=== PATIENT | female | born 1950 | race Caucasian/White ===

== ENCOUNTER 2022-04-17 17:01 | Inpatient (IN) | payer MEDICARE, SELFPAY ==
[2022-04-17] VITALS (24 sets, daily range): BP systolic 130–154; BP diastolic 80–94; PULSE 58–78; RESP 18–24; TEMP 36.5–36.8; O2SAT 92–100; BMI 31.0; BMI 33.0
--- NOTE | 2022-04-17 18:09 | CRLHL7_ITS ---
For Patients: As a result of the Century Cures Act, medical imaging exams and procedure reports are released immediately into your electronic medical record. You may view this report before your referring provider. If you have questions, please contact your health care provider. INDICATION: Abdominal pain, small-bowel obstruction suspected. TECHNIQUE: CT abdomen and pelvis acquired with 93 mL Isovue 370 contrast. COMPARISON: None available. FINDINGS: Lower chest: Scattered subsegmental atelectasis. No focal consolidation. Liver: Left lobe of the liver is either severely atrophic or surgically absent. Too small to characterize hypodense lesion in segment 6, likely benign in the absence of a known malignancy. Gallbladder and bile ducts: Gallbladder is surgically absent. Prominence of the biliary ducts, likely secondary to postcholecystectomy state. Pancreas: Fatty atrophy. Spleen: Unremarkable. Adrenal glands: Unremarkable. Kidneys: Kidneys enhance symmetrically, without hydronephrosis. Too small to characterize bilateral renal lesions. Retroperitoneum: No lymphadenopathy. Bowel and mesentery: Scattered colonic diverticulosis, without evidence of acute diverticulitis. Multiple dilated fluid-filled loops of small bowel consistent with small bowel obstruction. The transition point is in the right lower quadrant in the region of the distal ileum (series 2, image 64). There is mild volume ascites and mesenteric edema. Laparoscopic gastric band is in place, and is malpositioned. The phi angle is approximately 90 degrees (normal range 4-58 degrees). Bladder: Unremarkable for degree of distension. Reproductive organs: Posthysterectomy. Pelvic lymph nodes: No lymphadenopathy. Vessels: Scattered atherosclerotic calcifications. Abdominal wall: Lap band port is present in the ventral abdominal wall. Bones: Multilevel degenerative changes of the spine. Bones are osteopenic. IMPRESSION: 1. Multiple dilated fluid-filled loops of small bowel consistent with small bowel obstruction, with transition point in the right lower quadrant of the abdomen. Mild volume ascites and mesenteric edema is present. 2. Laparoscopic gastric band is in place, malpositioned. Phi angle is approximately 90 degrees (normal range 40-58 degrees). 3. Left lobe of the liver is either severely atrophic or surgically absent. Please note that all CT scans at this facility use dose modulation, iterative reconstruction, and/or weight-based dosing when appropriate to reduce radiation dose to as low as reasonably achievable. Dictated by Daniela Wilson MD @ 04/17/2022 8:25:53 PM (Electronically Signed)
--- NOTE | 2022-04-17 18:13 | ED_ITS ---
HPI - General Adult General Chief complaint: Abdominal Pain Stated complaint: stomach pain Time Seen by Provider: 04/17/22 18:00 Source: patient and family Mode of arrival: ambulatory History of Present Illness HPI narrative: 72-year-old female with notable prior history of cholecystectomy and hysterectomy as well as lap band procedure presents for abdominal pain that started abruptly at noon today. No nausea no vomiting. She thought that she might need to have a bowel movement so she tried taking some prune juice which has certainly made things her more. Did not try taking any pain medicine. No prior history of similar symptoms. She does feel like the abdomen is a little distended. She has not passed gas today. No prior history of small-bowel obstruction. She does not drink alcohol, no history pancreatitis. No recent b owel surgeries. She does have a lap band, no recent adjustments. Lap band is also not new, placed 11 years ago. She has had a colonoscopy and told that her ?bowels working? in the past. She wonders if this is a contributing factor. No history of polyps. Of note she is anticoagulated for factor 5 Leiden. Coumadin has been therapeutic when last checked but is due for a check again tomorrow. She has not noted any blood in her stools or any signs of spontaneous bleeding. She is in significant pain. Pain is constant, not crampy. It is located in the mid abdomen, does not radiate. Past medical history is notable for obesity, history of AFib but has had an ablation and has remained in sinus rhythm since. She also has a history of coagulopathy and prior DVT, hence the Coumadin. Only home medicine is Coumadin. No recent surgeries but has had a hysterectomy and a cholecystectomy as well as the lap band placement so multiple prior abdominal surgeries. Socially no pertinent alcohol or travel. No illicit drug use. ROS is notable for the abdominal symptoms as described above. Otherwise denies times 15 systems. Related Data Home Medications Medication Instructions Recorded Confirmed psyllium seed (sugar) oral powder 1 tbsp PO QDAY 04/17/22 04/17/22 (Metamucil (sugar) oral powder) warfarin 7.5 mg tablet 7.5 mg PO 04/17/22 04/17/22 Allergies Allergy/AdvReac Type Severity Reaction Status Date / Time No Known Drug Allergies Allergy Verified 04/17/22 19:20 PFSH PFSH Social History Smoking Status: Former smoker How often do you have a drink containing alcohol: 2-4 times a month How many standard drinks containing alcohol do you have on a typical day: 1 or 2 How often do you have six or more drinks on one occasion: Never AUDIT-C Alcohol total score: 2 Non-prescribed substance use: denies use Exam Const: Vital Signs, click to edit/add: Vital Signs - 24 hr 04/17/22 17:44 04/17/22 18:31 04/17/22 18:33 Temperature 98.3 F Pulse Rate 58 L 63 Pulse Rate [Right Pulse Oximeter] 78 Respiratory Rate 18 Blood Pressure 154/94 H Blood Pressure [Ri ght Upper Arm] 154/94 H Pulse Oximetry 95 97 98 Oxygen Delivery Me thod Room Air 04/17/22 18:45 04/17/22 19:00 04/17/22 19:02 Temperature Pulse Rate 66 62 63 Pulse Rate [Right Pulse Oximeter] Respiratory Rate Blood Pressure 131/86 Blood Pressure [Ri ght Upper Arm] Pulse Oximetry 94 97 98 Oxygen Delivery Me thod 04/17/22 19:03 04/17/22 20:03 04/17/22 20:15 Temperature Pulse Rate 60 66 67 Pulse Rate [Right Pulse Oximeter] Respiratory Rate Blood Pressure 136/81 Blood Pressure [Ri ght Upper Arm] Pulse Oximetry 98 93 92 Oxygen Delivery Me thod 04/17/22 20:30 04/17/22 20:32 04/17/22 20:45 Temperature Pulse Rate 65 63 68 Pulse Rate [Right Pulse Oximeter] Respiratory Rate Blood Pressure 131/87 Blood Pressure [Ri ght Upper Arm] Pulse Oximetry 98 97 96 Oxygen Delivery Me thod Documenting provider has reviewed patient's vital signs: yes Common normals: no apparent distress General appearance: cooperative Other: Appears to be in moderate pain, good historian answers questions appropriately HENMT: Common normals: normocephalic Head and scalp: normocephalic Mouth: oral and palatal mucosa normal Throat: posterior oropharynx normal Eye: Common normals: conjunctivae normal Conjunctiva: conjunctiva(e) normal Neck & C-Spine: Common normals: full ROM and no lymphadenopathy Resp: Common normals: normal respiratory effort, no use of accessory muscles and clear to auscultation bilaterally Effort & inspection: able to speak in complete sentences Auscultation: clear to auscultation bilaterally Cardio: Common normals: regular rate, regular rhythm, S1 normal heart sound, no murmurs and peripheral pulses 2+ throughout Rate: regular rate Rhythm: regular rhythm Heart sounds: S1 normal Peripheral pulses: pulses 2+ throughout GI: Other: Abdomen appears distended. Bowel sounds high-pitched but noted in all 4 quadrants. No obvious mass. Mildly diffusely tender, does not localize. Palpable central firmness consistent with inflations site of lap band. No other obvious masses. Liver is not enlarged but difficult to palpate due to distended bowel. Extremity: Other: 2+ edema to left lower extremity which she states is chronic from her DVT. Does wear compression stocking. Right side has 1+ Neuro: Speech: speech normal Motor exam: no tremor noted and no movement abnormalities noted Psych: Common normals: mental status grossly normal and thought process normal Thought process: normal thought process Insight: insight good Judgement: judgment good Skin: Common normals: no rashes or lesions noted General skin exam: no rashes or lesions noted Course Vital Signs Vital signs: Initial Vital Signs Temperature 98.3 F 04/17/22 17:44 Temperature Source Temporal Artery Scan 04/17/22 17:44 Pulse Rate 78 04/17/22 17:44 Respiratory Rate 18 04/17/22 17:44 Blood Pressure 154/94 H 04/17/22 17:44 Blood Pressure Mean 114 04/17/22 17:44 Blood Pressure Position Sitting 04/17/22 17:44 Pulse Oximetry 95 04/17/22 17:44 Oxygen Delivery Method 04/17/22 17:44 Vital Signs Temperature 98.3 F 04/17/22 17:44 Pulse Rate 78 04/17/22 17:44 Respiratory Rate 18 04/17/22 17:44 Blood Pressure 154/94 H 04/17/22 17:44 Pulse Oximetry 95 04/17/22 17:44 Oxygen Delivery Method 04/17/22 17:44 Temperature 98.3 F 04/17/22 17:44 Pulse Rate 68 04/17/22 20:45 Respiratory Rate 18 04/17/22 17:44 Blood Pressure 131/87 04/17/22 20:32 Pulse Oximetry 96 04/17/22 20:45 Oxygen Delivery Method 04/17/22 17:44 Medical Decision Making MDM Narrative Medical decision making narrative: Suspect small-bowel obstruction. Differential diagnosis also including volvulus, hernia, gastritis, pancreatitis, colitis. Laboratory studies, Dilaudid and Zofran IV, CT scan of the abdomen and pelvis. Counseled patient on differential diagnosis. Will start LR for fluids as well. Will likely need admission. Labs reassuring, no signs of pancreatitis or infection. CT as expected is consistent with small-bowel obstruction. Per Radiology Team, the transition point is in the right lower quadrant. They also have some incidental findings such as an atrophic versus surgically absent left lobe of the liver and interestingly a malpositioned lap band which does not seem to be causing patient any particular problems when we discuss this finding. Her pain did initially improve on the Dilaudid is starting to return, will dose an additional dose of Dilaudid. She is not having any vomiting, I will not place an NG tube. I recommend pain control, bowel rest and IV fluids and hospital admission. Will contact the hospitalist for admission. COVID swab is pending. Update 9:[address] Correa accepted admission., Dilaudid ordered p.r.n. in the interim. Admission discussed with patient as well as nonacute findings on CT. Lab Data Lab results reviewed: Yes I reviewed the patient's lab results Labs: Lab Results 04/17/22 04/17/22 04/17/22 Range/Units 17:55 17:55 17:55 WBC 7.21 (4.50-11.00) K/uL RBC 4.60 (4.00-5.20) m/uL Hgb 13.8 (12.0-16.0) gm/dL Hct 40.4 (33.0-51.0) % MCV 88 (80-100) fL MCH 30 (26-34) pg MCHC 34 (32-36) gm/dL RDW Coeff of Goran 12.2 (11.5-15.5) % Plt Count 219 (140-440) K/uL Neut % (Auto) 64.4 (42.0-72.0) % Lymph % (Auto) 23.4 (20-44) % [place] % (Auto) 10.7 (0.0-11.0) % Eos % (Auto) 1.1 (0.0-7.0) % Baso % (Auto) 0.3 (0.0-3.0) % Neut # (Auto) 4.64 (1.7-7.0) K/uL Lymph # (Auto) 1.69 (0.90-2.90) K/uL [place] # (Auto) 0.80 (0.00-0.90) K/UL Eos # (Auto) 0.08 (0.00-0.50) K/uL Baso # (Auto) 0.02 (0.00-0.30) K/uL Abs Immat Gran (auto) 0.01 (0.00-0.30) K/uL Imm/Tot Granulo (auto) 0.1 % INR (0.91-1.10) Sodium 137 (135-149) mmol/L Potassium 4.0 (3.6-5.1) mmol/L Chloride 106 (96-114) mmol/L Carbon Dioxide 26 (20-32) mmol/L BUN 13 (7-30) mg/dL Creatinine 0.5 (0.5-1.5) mg/dL Estimated Creat Clear 44.41 Estimated GFR 98 ml/min Glucose 95 (60-115) mg/dL Lactate 1.2 (0.5-1.9) mmol/L Calcium 9.0 (8.4-10.6) mg/dL Total Bilirubin 1.0 (0.1-1.5) mg/dL AST 29 (12-35) U/L ALT 20 (4-35) U/L Alkaline Phosphatase 61 (40-150) U/L Troponin I < 0.01 L (0.01-0.04) ng/mL C-Reactive Protein < 0.5 L (0.5-1.0) mg/dL Total Protein 7.1 (6.0-8.3) g/dL Albumin 4.3 (3.3-5.0) g/dL Lipase 86 (23-300) U/L Urine Color (Yellow) Urine Appearance (Clear) Urine pH (5.0-8.5) Ur Specific [place] (1.000-1.030) Urine Protein (Negative) Urine Glucose (UA) (Negative) Urine Ketones (Negative) Urine Blood (Negative) Urine Nitrite (Negative) Urine Bilirubin (Negative) Urine Urobilinogen (0.2-1.0) Ur Leukocyte Esterase (Negative) Urine RBC (0-2) Urine WBC (0-5) Ur Squamous Epith Cells (None-Few) Urine Bacteria (None) 04/17/22 04/17/22 Range/Units 17:55 18:09 WBC (4.50-11.00) K/uL RBC (4.00-5.20) m/uL Hgb (12.0-16.0) gm/dL Hct (33.0-51.0) % MCV (80-100) fL MCH (26-34) pg MCHC (32-36) gm/dL RDW Coeff of Goran (11.5-15.5) % Plt Count (140-440) K/uL Neut % (Auto) (42.0-72.0) % Lymph % (Auto) (20-44) % [place] % (Auto) (0.0-11.0) % Eos % (Auto) (0.0-7.0) % Baso % (Auto) (0.0-3.0) % Neut # (Auto) (1.7-7.0) K/uL Lymph # (Auto) (0.90-2.90) K/uL [place] # (Auto) (0.00-0.90) K/UL Eos # (Auto) (0.00-0.50) K/uL Baso # (Auto) (0.00-0.30) K/uL Abs Immat Gran (auto) (0.00-0.30) K/uL Imm/Tot Granulo (auto) % INR 2.62 H (0.91-1.10) Sodium (135-149) mmol/L Potassium (3.6-5.1) mmol/L Chloride (96-114) mmol/L Carbon Dioxide (20-32) mmol/L BUN (7-30) mg/dL Creatinine (0.5-1.5) mg/dL Estimated Creat Clear Estimated GFR ml/min Glucose (60-115) mg/dL Lactate (0.5-1.9) mmol/L Calcium (8.4-10.6) mg/dL Total Bilirubin (0.1-1.5) mg/dL AST (12-35) U/L ALT (4-35) U/L Alkaline Phosphatase (40-150) U/L Troponin I (0.01-0.04) ng/mL C-Reactive Protein (0.5-1.0) mg/dL Total Protein (6.0-8.3) g/dL Albumin (3.3-5.0) g/dL Lipase (23-300) U/L Urine Color Yellow (Yellow) Urine Appearance Clear (Clear) Urine pH 6.0 (5.0-8.5) Ur Specific [place] 1.015 (1.000-1.030) Urine Protein Negative (Negative) Urine Glucose (UA) Negative (Negative) Urine Ketones Trace A (Negative) Urine Blood Negative (Negative) Urine Nitrite Negative (Negative) Urine Bilirubin Negative (Negative) Urine Urobilinogen 0.2 (0.2-1.0) Ur Leukocyte Esterase 1+ A (Negative) Urine RBC 0-2 (0-2) Urine WBC 2-5 (0-5) Ur Squamous Epith Cells Few (None-Few) Urine Bacteria None (None) Imaging Data CT scan - abdomen: Attestation: I have reviewed the pertinent imaging results. My impression: Bowel edema and fluid filled loops consistent with small bowel obstruction Radiologist's impression: FINDINGS: Lower chest: Scattered subsegmental atelectasis. No focal consolidation. Liver: Left lobe of the liver is either severely atrophic or surgically absent. Too small to characterize hypodense lesion in segment 6, likely benign in the absence of a known malignancy. Gallbladder and bile ducts: Gallbladder is surgically absent. Prominence of the biliary ducts, likely secondary to postcholecystectomy state. Pancreas: Fatty atrophy. Spleen: Unremarkable. Adrenal glands: Unremarkable. Kidneys: Kidneys enhance symmetrically, without hydronephrosis. Too small to characterize bilateral renal lesions. Retroperitoneum: No lymphadenopathy. Bowel and mesentery: Scattered colonic diverticulosis, without evidence of acute diverticulitis. Multiple dilated fluid-filled loops of small bowel consistent with small bowel obstruction. The transition point is in the right lower quadrant in the region of the distal ileum (series 2, image 64). There is mild volume ascites and mesenteric edema. Laparoscopic gastric band is in place, and is malpositioned. The phi angle is approximately 90 degrees (normal range 4-58 degrees). Discharge Plan Discharge Prescriptions: No Action warfarin 7.5 mg tablet 7.5 mg PO Label Comments: TAKE BY MOUTH 7.5 MG (7.5 MG X 1) DAILY IN THE EVENING OR DIRECTED Metamucil (sugar) Powder 1 tbsp PO QDAY Follow Up/Referrals: Provider,Not a Local [Primary Care Provider] -
[2022-04-17] MEDS: HYDROmorphone 0.5 mg/0.5 ml inj IVP ×5 (18:21→23:50)
[2022-04-17] MEDS: ONDANSETRON 2 MG/ML inj 4 MG IVP (18:21)
[2022-04-17 18:22] LABS: Lactate* 1.2 mmol/L (0.5-1.9)
[2022-04-17 18:23] LABS: Basophils Absolute Auto 0.02 K/uL (0.00-0.30); Basophils Percent Auto 0.3 % (0.0-3.0); Eosinophils Absolute Auto 0.08 K/uL (0.00-0.50); Eosinophils Percent Auto 1.1 % (0.0-7.0); Hematocrit 40.4 % (33.0-51.0); Hemoglobin* 13.8 gm/dL (12.0-16.0); Immature Granulocytes Abs Auto 0.01 K/uL (0.00-0.30); Immature Granulocytes Pct Auto 0.1 %; Lymphocytes Absolute Auto 1.69 K/uL (0.90-2.90); Lymphocytes Percent Auto 23.4 % (20-44); Mean Corpuscular HGB Conc 34 gm/dL (32-36); Mean Corpuscular Hemoglobin 30 pg (26-34); Mean Corpuscular Volume 88 fL (80-100); Monocytes Percent Auto 10.7 % (0.0-11.0); Neutrophils Absolute Auto 4.64 K/uL (1.7-7.0); Neutrophils Percent Auto 64.4 % (42.0-72.0); Platelet Count* 219 K/uL (140-440); RDW Coefficient of Variation % 12.2 % (11.5-15.5); White Blood Count* 7.21 K/uL (4.50-11.00)
[2022-04-17 18:24] LABS: Slide Review Reflex No
[2022-04-17] MEDS: LACTATED RINGERS 1000 ML 1,000 ML 500 ML IV (18:30)
[2022-04-17 18:44] LABS: INR 2.62 (0.91-1.10); Prothrombin Time 29.3 Seconds
[2022-04-17 18:45] LABS: Albumin* 4.3 g/dL (3.3-5.0); Chloride* 106 mmol/L (96-114)
[2022-04-17 18:46] LABS: Sodium* 137 mmol/L (135-149)
[2022-04-17 18:48] LABS: Creatinine* 0.5 mg/dL (0.5-1.5); Est. Creatinine Clearance* 44.41; Estimated Glomerular Filt Rate 98 ml/min
[2022-04-17 18:49] LABS: Alanine Aminotransferase* 20 U/L (4-35); Alkaline Phosphatase* 61 U/L (40-150); Aspartate Amino Transferase* 29 U/L (12-35); Blood Urea Nitrogen* 13 mg/dL (7-30); Carbon Dioxide* 26 mmol/L (20-32); Glucose* 95 mg/dL (60-115); Lipase* 86 U/L (23-300); Total Protein* 7.1 g/dL (6.0-8.3)
[2022-04-17 18:55] LABS: C Reactive Protein* < 0.5 mg/dL (0.5-1.0)
[2022-04-17 19:03] LABS: Troponin I* < 0.01 ng/mL (0.01-0.04)
[2022-04-17 19:52] LABS: Appearance Urine Clear (Clear); Bilirubin Urine Negative (Negative); Blood Urine Negative (Negative); Color Urine Yellow (Yellow); Glucose Urine Negative (Negative); Ketones Urine Trace (Negative); Leukocyte Esterase Urine 1+ (Negative); Nitrite Urine Negative (Negative); Protein Urine Negative (Negative); Specific Gravity Urine 1.015 (1.000-1.030); Urobilinogen Urine 0.2 (0.2-1.0)
[2022-04-17 19:55] LABS: RBC Urine 0-2 (0-2); Squamous Epithelial Cell Urine Few (None-Few)
[2022-04-17 21:27] LABS: SARS PCR* Negative SARS-CoV-2 (Negative)
--- NOTE | 2022-04-17 21:56 | W.PC.EDHO ---
Primary Language: Korean Preferred Language: Orientation Status: [x] Alert & Oriented [] Slight Confusion [] Known Dx Dementia Transfers By: [x] Assist of 1 [] Assist of 2 [] Lift Active Medications Discontinued Medications Generic Name Dose Route Start Last Admin Trade Name Mikyq PRN Reason Stop Dose Admin Hydromorphone HCl 0.5 mg 04/17/22 18:01 04/17/22 18:21 Hydromorphone 0.5 Mg/0.5 Ml Inj IVP 04/17/22 18:02 0.5 mg ONCE ONE Administration Hydromorphone HCl 0.5 mg 04/17/22 18:33 04/17/22 18:35 Hydromorphone 0.5 Mg/0.5 Ml Inj IVP 04/17/22 18:34 0.5 mg ONCE ONE Administration Hydromorphone HCl 0.5 mg 04/17/22 20:41 04/17/22 20:52 Hydromorphone 0.5 Mg/0.5 Ml Inj IVP 04/17/22 20:42 0.5 mg ONCE ONE Administration Lactated Ringer's 1,000 mls @ 500 mls/hr 04/17/22 18:11 04/17/22 21:25 Lactated Ringers 1000 Ml IV 04/17/22 20:10 Infused .Q2H JULITO Infusion Ondansetron HCl 4 mg 04/17/22 18:01 04/17/22 18:21 Ondansetron 2 Mg/Ml Inj IVP 04/17/22 18:02 4 mg ONCE ONE Administration Description of Symptoms ED Triage Present Problem pt here with severe abd pain that came on suddenly Description she thought she needed to have a BM and took prune juice without relief, 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 ED Triage Date of Onset of 04/17/22 Symptoms Female History Patient No Patient No Pain Pain Description [Medial Sharp Abdomen] Pain Description [Medial Pressure,Sharp,Dull, Achy,Cramping Abdomen] Pain Intensity [Medial Abdomen 10 ] Pain Intensity [Medial Abdomen 10 ] Pain Intensity 5 Pain Intensity 8 Pain Intensity 8 Pain Intensity 8 Pain Intensity 10 Pain Intensity 10 Pain Intensity 10 Pain Scale Used [Medial Numeric (1 - 10) Abdomen] Pain Scale Used [Medial Numeric (1 - 10) Abdomen] Pain Scale Used Numeric (1 - 10) Pain Scale Used Numeric (1 - 10) Pain Scale Used Numeric (1 - 10) Pain Scale Used Numeric (1 - 10) Pain Scale Used Numeric (1 - 10) Pain Scale Used Numeric (1 - 10) Oxygen Administration Pulse Oximetry 96 Pulse Oximetry 94 Pulse Oximetry 97 Pulse Oximetry 99 Pulse Oximetry 96 Pulse Oximetry 97 Pulse Oximetry 98 Pulse Oximetry 92 Pulse Oximetry 93 Pulse Oximetry 98 Pulse Oximetry 98 Pulse Oximetry 97 Pulse Oximetry 94 Pulse Oximetry 98 Pulse Oximetry 97 Pulse Oximetry 95 Oxygen Delivery Method Room Air
--- NOTE | 2022-04-17 22:35 | ED.NURSE ---
Report called to M/S RN.
--- NOTE | 2022-04-17 22:56 | P.IMHP_ITS ---
Hospitalist- H&P: HPI History of Present Illness Date Seen: 04/17/22 Chief complaint: stomach pain Narrative: Dayana Hein is a 72 year old female admitted through the emergency department with onset of severe abdominal pain starting at noon today. Patient reports feeling fine up until about noon today when she had onset of a sense of bloating and fullness in her abdomen. She thought she was constipated so she took some laxative. She continued to feel worse and by late afternoon came to the emergency room for evaluation. She did not have a bowel movement or passed gas today. She has been nauseated. Past history of open cholecystectomy, hysterectomy, lap band gastric surgery. No previous history of small-bowel obstruction She is chronically anticoagulated with warfarin for previous history of a postop DVT and factor 5 Leiden mutation, heterozygous. She has a history of atrial fibrillation but has had an ablation. Review of Systems Narrative: She reports that she was generally feeling well until onset of symptoms at noon today. No other recent illness. [facility] Medical History (Updated 04/17/22 @ 23:12 by Jarocho Correa MD) Ascending aorta dilatation Chronic anticoagulation Factor 5 Leiden mutation, heterozygous Family history of cholecystectomy History of atrial fibrillation History of DVT (deep vein thrombosis) History of paroxysmal supraventricular tachycardia History of thyrotoxicosis Surgical History (Updated 04/17/22 @ 23:04 by Jarocho Correa MD) History of abdominal hysterectomy History of abdominoplasty History of arthroplasty of right knee History of arthroscopy of both knees History of tonsillectomy and adenoidectomy Hx of laparoscopic gastric banding Status post catheter ablation of atrial fibrillation Family History (Updated 04/17/22 @ 23:05 by Jarocho Correa MD) Mother Renal cell carcinoma Breast cancer Father Aortic dissection Brother Aortic dissection Social History (Updated 04/17/22 @ 23:07 by Jarocho Correa MD) Narrative: She lives in [place] with her . She has 2 grown daughters and grandchildren. She is a former smoker having smoked to half pack a day for 30 years and quitting about 25 years ago. She drinks alcohol about 2 times a week. 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 Code status is full. Smoking Status: Former smoker How often do you have a drink containing alcohol: 2-4 times a month How many standard drinks containing alcohol do you have on a typical day: 1 or 2 How often do you have six or more drinks on one occasion: Never AUDIT-C Alcohol total score: 2 Non-prescribed substance use: denies use Meds Home Medications and Allergies Home Medications Medication Instructions Recorded Confirmed Type psyllium seed (sugar) oral powder 1 tbsp PO QDAY 04/17/22 04/17/22 History (Metamucil (sugar) oral powder) warfarin 7.5 mg tablet 7.5 mg PO DAILY 04/17/22 04/17/22 History Allergies Allergy/AdvReac Type Severity Reaction Status Date / Time No Known Drug Allergies Allergy Verified 04/17/22 19:20 Exam Narrative: Exam Narrative: She is alert and appears in mild discomfort. She is oriented to her circumstances. She gives her own history. Head is normal. Eyes normal. Sclerae nonicteric. Oropharynx normal. Neck is supple without mass or adenopathy. Respirations are clear to auscultation. Good air exchange all lung [place]. Cardiovascular: S1, S2, regular rate and rhythm. No murmur gallop or rub. Abdomen: Bowel sounds minimal. She has diffuse mild tenderness with voluntary guarding. Mild abdominal distension. External genitalia normal. Extremities without edema. Intact pedal pulses. No rash. She moves all 4 extremities well. Const: Vital Signs, click to edit/add: Vital Signs - 24 hr 04/17/22 17:44 04/17/22 18:31 04/17/22 18:33 Temperature 98.3 F Pulse Rate 58 L 63 Pulse Rate [Right Pulse Oximeter] 78 Respiratory Rate 18 Blood Pressure 154/94 H Blood Pressure [Ri ght Upper Arm] 154/94 H Pulse Oximetry 95 97 98 Oxygen Delivery Me thod Room Air 04/17/22 18:45 04/17/22 19:00 04/17/22 19:02 Temperature Pulse Rate 66 62 63 Pulse Rate [Right Pulse Oximeter] Respiratory Rate Blood Pressure 131/86 Blood Pressure [Ri ght Upper Arm] Pulse Oximetry 94 97 98 Oxygen Delivery Me thod 04/17/22 19:03 04/17/22 20:03 04/17/22 20:15 Temperature Pulse Rate 60 66 67 Pulse Rate [Right Pulse Oximeter] Respiratory Rate Blood Pressure 136/81 Blood Pressure [Ri ght Upper Arm] Pulse Oximetry 98 93 92 Oxygen Delivery Me thod 04/17/22 20:30 04/17/22 20:32 04/17/22 20:45 Temperature Pulse Rate 65 63 68 Pulse Rate [Right Pulse Oximeter] Respiratory Rate Blood Pressure 131/87 Blood Pressure [Ri ght Upper Arm] Pulse Oximetry 98 97 96 Oxygen Delivery Me thod 04/17/22 21:00 04/17/22 21:02 04/17/22 21:15 Temperature Pulse Rate 67 64 64 Pulse Rate [Right Pulse Oximeter] Respiratory Rate Blood Pressure 140/80 H Blood Pressure [Ri ght Upper Arm] Pulse Oximetry 99 97 94 Oxygen Delivery Me thod 04/17/22 21:32 04/17/22 21:33 04/17/22 21:45 Temperature Pulse Rate 65 66 74 Pulse Rate [Right Pulse Oximeter] Respiratory Rate Blood Pressure 142/85 H Blood Pressure [Ri ght Upper Arm] Pulse Oximetry 96 96 100 Oxygen Delivery Me thod 04/17/22 22:00 04/17/22 22:02 04/17/22 22:15 Temperature Pulse Rate 62 63 64 Pulse Rate [Right Pulse Oximeter] Respiratory Rate Blood Pressure 130/87 Blood Pressure [Ri ght Upper Arm] Pulse Oximetry 95 97 95 Oxygen Delivery Me thod 04/17/22 22:30 04/17/22 22:32 Temperature Pulse Rate 60 61 Pulse Rate [Right Pulse Oximeter] Respiratory Rate Blood Pressure 137/89 Blood Pressure [Ri ght Upper Arm] Pulse Oximetry 96 93 Oxygen Delivery Me od Hospitalist - H&P: Result Labs Labs: Short CBC 04/17/22 Range/Units 17:55 WBC 7.21 (4.50-11.00) K/uL Hgb 13.8 (12.0-16.0) gm/dL Hct 40.4 (33.0-51.0) % Plt Count 219 (140-440) K/uL BMP 04/17/22 17:55 Sodium 137 Potassium 4.0 Chloride 106 Carbon Dioxide 26 BUN 13 Creatinine 0.5 Glucose 95 Calcium 9.0 Cardiac Enzymes 04/17/22 Range/Units 17:55 Troponin I < 0.01 L (0.01-0.04) ng/mL Liver Function 04/17/22 Range/Units 17:55 Total Bilirubin 1.0 (0.1-1.5) mg/dL AST 29 (12-35) U/L ALT 20 (4-35) U/L Alkaline Phosphatase 61 (40-150) U/L Albumin 4.3 (3.3-5.0) g/dL Urine 04/17/22 Range/Units 18:09 Urine Color Yellow (Yellow) Urine Appearance Clear (Clear) Urine pH 6.0 (5.0-8.5) Ur Specific [place] 1.015 (1.000-1.030) Urine Protein Negative (Negative) Urine Glucose (UA) Negative (Negative) Imaging CT scan - abdomen: Radiologist's impression: IMPRESSION: 1. Multiple dilated fluid-filled loops of small bowel consistent with small bowel obstruction, with transition point in the right lower quadrant of the abdomen. Mild volume ascites and mesenteric edema is present. 2. Laparoscopic gastric band is in place, malpositioned. Phi angle is approximately 90 degrees (normal range 40-58 degrees). 3. Left lobe of the liver is either severely atrophic or surgically absent. Assessment and Plan Assessment and plan (1) Small bowel obstruction: Problem comment: Place NG tube. Consult surgery. IV fluids. Pain medications. Reverse anticoagulation. Enoxaparin when INR is normalized. Status: Acute (2) Chronic anticoagulation: Problem comment: Reverse anticoagulation now with vitamin K. anticipate conservative management of small bowel obstruction. Bridge with enoxaparin if necessary. Status: Acute Plan Admit to the hospital for management of small bowel obstruction, IV fluids, pain management, NG suctioning. Total time spent is 70 minutes, 40 minutes in coordination of care and discussing with patient, , other providers management of bowel obstruction
[2022-04-17] MEDS: 5 % DEXTROSE IN LAC RINGER'S 1,000 ML 125 ML IV (23:30)
--- NOTE | 2022-04-17 23:41 | CRLHL7_ITS ---
For Patients: As a result of the Cures Act, medical imaging exams and procedure reports are released immediately into your electronic medical record. You may view this report before your referring provider. If you have questions, please contact your health care provider. INDICATION: NG tube placement TECHNIQUE: Chest radiograph 1 view COMPARISON: None FINDINGS: Mediastinum: The mediastinum is normal in appearance. Moderate to severe cardiomegaly is present. NG tube is present with the tip in the gastric body. Lung: Small lung volumes present with moderate pulmonary vascular congestion and bibasilar atelectasis seen. No sign of pleural effusion seen. No pneumothorax is identified. Bone and Soft tissue: Unremarkable for age. IMPRESSION: 1. NG tube is present with the tip in the gastric body. Dictated by Obie Arguelles MD @ 04/18/2022 12:14:21 AM Dictated by: Obie Arguelles MD @ 04/18/2022 00:14:24 (Electronically Signed)
[2022-04-17] MEDS: PHYTONADIONE (VIT K1) 5 MG in 0.9 % SODIUM CHLORIDE 50 ml 50 ML 100 MG IVPB (23:51)
[2022-04-18] VITALS (7 sets, daily range): BP systolic 123–145; BP diastolic 80–95; PULSE 60–80; RESP 20–209; TEMP 36.4–36.9; O2SAT 91–99
[2022-04-18] MEDS: ONDANSETRON 2 MG/ML inj 4 MG IVP ×3 (00:21→10:08)
[2022-04-18] MEDS: HYDROmorphone 0.5 mg/0.5 ml inj IVP ×7 (01:27→16:10)
[2022-04-18] MEDS: BENZOCAINE/MENTHOL 1 EACH LOZENGE MUCOUS MEM ×2 (02:03→05:13)
[2022-04-18 07:01] LABS: Chloride* 106 mmol/L (96-114); Potassium* 4.2 mmol/L (3.6-5.1); Sodium* 136 mmol/L (135-149)
[2022-04-18 07:03] LABS: Creatinine* 0.4 mg/dL (0.5-1.5); Est. Creatinine Clearance* 44.41; Estimated Glomerular Filt Rate 104 ml/min
[2022-04-18 07:04] LABS: Blood Urea Nitrogen* 10 mg/dL (7-30); Calcium* 8.3 mg/dL (8.4-10.6); Carbon Dioxide* 22 mmol/L (20-32); Glucose* 167 mg/dL (60-115)
--- NOTE | 2022-04-18 07:35 | PC.NURSE ---
Shift note: The pt has been C/O of abdominal pain moderate to severe, PRN pain medication given with some improvement . She is also C/O nausea with retching, Zofran given with some relief. The pt had been sleeping between [id number]( didn't ask for pain mediation. NG to right nare; Low intermittent wall suction,@ 60 cm , moderated greenish abdominal substance noted in the suction canister. The pt has been denying chest pain and shot of breath throughout the night.
[2022-04-18 07:44] LABS: Basophils Absolute Auto 0.01 K/uL (0.00-0.30); Basophils Percent Auto 0.1 % (0.0-3.0); Hemoglobin* 13.1 gm/dL (12.0-16.0); Immature Granulocytes Abs Auto 0.02 K/uL (0.00-0.30); Immature Granulocytes Pct Auto 0.2 %; Lymphocytes Percent Auto 5.3 % (20-44); Mean Corpuscular HGB Conc 34 gm/dL (32-36); Mean Corpuscular Hemoglobin 30 pg (26-34); Mean Corpuscular Volume 89 fL (80-100); Neutrophils Percent Auto 89.4 % (42.0-72.0); Platelet Count* 175 K/uL (140-440); RDW Coefficient of Variation % 12.2 % (11.5-15.5); Red Blood Count 4.36 m/uL (4.00-5.20); White Blood Count* 8.16 K/uL (4.50-11.00)
[2022-04-18 07:47] LABS: Slide Review Reflex No
[2022-04-18 07:58] LABS: Prothrombin Time 21.9 Seconds
[2022-04-18] MEDS: 5 % DEXTROSE IN LAC RINGER'S 1,000 ML 125 ML IV ×2 (08:04→17:02)
[2022-04-18] MEDS: SODIUM CHLORIDE 0.9 % (FLUSH) 10 ML SYRINGE 5 ML IVF (08:06)
[2022-04-18 08:07] LABS: Thyroid Stimulating Hormone* 0.483 uIU/mL (0.270-4.20)
[2022-04-18 09:18] LABS: Lactate* 1.6 mmol/L (0.5-1.9)
[2022-04-18 09:28] LABS: C Reactive Protein* < 0.5 mg/dL (0.5-1.0)
--- NOTE | 2022-04-18 10:40 | P.GSCN_ITS ---
History of Present Illness Consult details Date Seen: 04/18/22 Consult date: 04/18/22 Narrative: The patient is a 72-year-old female who yesterday developed severe abdominal pain. This started abruptly around noon. The pain is constant. Nothing makes the pain better worse but sitting up does seem to make her more uncomfortable. She was admitted to the hospital and found to have likely a small-bowel obstruction. An NG tube was placed and approximately 500 mL came out. She has a history of a lap band which was placed sometime in the past. This port was revised at some point as well I believe during and abdominal plasty procedure. She has not had bowel movement in the last day. She states that she generally has to take Metamucil to have bowel movements. She has not had any fevers. She has had nausea but no vomiting on account of the lap band. She has never had a bowel obstruction or anything like this previously. Review of Systems Status of ROS: Reports: 10 or more systems reviewed and unremarkable except as noted in History and below PFSH [facility] Medical History (Updated 04/18/22 @ 12:39 by Jarocho Correa MD) Ascending aorta dilatation Chronic anticoagulation Factor 5 Leiden mutation, heterozygous Family history of cholecystectomy History of atrial fibrillation History of DVT (deep vein thrombosis) History of paroxysmal supraventricular tachycardia History of thyrotoxicosis Surgical History (Updated 04/17/22 @ 23:04 by Jarocho Correa MD) History of abdominal hysterectomy History of abdominoplasty History of arthroplasty of right knee History of arthroscopy of both knees History of tonsillectomy and adenoidectomy Hx of laparoscopic gastric banding Status post catheter ablation of atrial fibrillation Family History (Updated 04/17/22 @ 23:05 by Jarocho Correa MD) Mother Renal cell carcinoma Breast cancer Father Aortic dissection Brother Aortic dissection Social History (Updated 04/17/22 @ 23:07 by Jarocho Correa MD) Narrative: She lives in [place] with her . She has 2 grown daughters and grandchildren. She is a former smoker having smoked to half pack a day for 30 years and quitting about 25 years ago. She drinks alcohol about 2 times a week. 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 Code status is full. Highest level of school completed/degree received: high school graduate Smoking Status: Former smoker Second hand tobacco smoke exposure: No How often do you have a drink containing alcohol: 2-4 times a month Alcohol type: hard liquor How many standard drinks containing alcohol do you have on a typical day: 1 or 2 How often do you have six or more drinks on one occasion: Never AUDIT-C Alcohol total score: 2 Non-prescribed substance use: denies use Caffeine: Yes (2 cups a day) service: No Meds Home Medications and Allergies Home Medications Medication Instructions Recorded Confirmed Type psyllium seed (sugar) oral powder 1 tbsp PO DAILY 04/17/22 04/18/22 History (Metamucil (sugar) oral powder) warfarin 7.5 mg tablet 7.5 mg PO DAILY 04/17/22 04/17/22 History Cheryl 1 ea PO DAILY 04/18/22 04/18/22 History Lactobacillus acidophilus 1 tab PO DAILY 04/18/22 04/18/22 History (Acidophilus chewable tablet) cholecalciferol (vitamin D3) 50 50 mcg PO DAILY 04/18/22 04/18/22 History mcg (2,000 unit) capsule multivitamin (Daily Multi-Vitamin 1 tab PO DAILY 04/18/22 04/18/22 History tablet) omega 6-tiv-jcx-fish oil 1,000 mg 1 cap PO DAILY 04/18/22 04/18/22 History (120 mg-180 mg) capsule (Fish Oil) turmeric 400 mg capsule 400 mg PO DAILY 04/18/22 04/18/22 History vit 1 tab PO DAILY 04/18/22 04/18/22 History [id number] 500 mg-50 mg-25 mg-40 mg tablet (Bioflex) vitamin B complex 1 tab PO DAILY 04/18/22 04/18/22 History Allergies Allergy/AdvReac Type Severity Reaction Status Date / Time No Known Drug Allergies Allergy Verified 04/17/22 19:20 Exam Narrative: Exam Narrative: General appearance: Alert, cooperative, and in no distress Eyes: PERRLA, eye lids clear, and sclera white HENT Head: Normocephalic NG in place with 500 mL of brownish output Pulmonary: Breathing nonlabored on room air Cardiovascular Heart: Regular rate Extremities: warm and well perfused Gastrointestinal Abdominal: Nondistended. Tender to palpation without rebound. Scars consistent with surgical history. Musculoskeletal: Extremities: Upper: Both upper extremities have normal joint range of motion and intact strength. Lower: Both lower extremities have normal joint range of motion and intact strength. Skin: Normal skin color, texture, and turgor. No rashes or lesions. Neurologic: No focal deficits Psychiatric: Alert, oriented, cooperative, normal affect. Const: Vital Signs, click to edit/add: Vital Signs - 24 hr 04/17/22 17:44 04/17/22 18:31 04/17/22 18:33 Temperature 98.3 F Pulse Rate 58 L 63 Pulse Rate [Pulse Oximeter] Pulse Rate [Right Pulse Oximeter] 78 Respiratory Rate 18 Blood Pressure 154/94 H Blood Pressure [Le ft Radial Artery] Blood Pressure [Ri ght Upper Arm] 154/94 H Pulse Oximetry 95 97 98 Oxygen Delivery Me thod Room Air 04/17/22 18:45 04/17/22 19:00 04/17/22 19:02 Temperature Pulse Rate 66 62 63 Pulse Rate [Pulse Oximeter] Pulse Rate [Right Pulse Oximeter] Respiratory Rate Blood Pressure 131/86 Blood Pressure [Le ft Radial Artery] Blood Pressure [Ri ght Upper Arm] Pulse Oximetry 94 97 98 Oxygen Delivery Me thod 04/17/22 19:03 04/17/22 20:03 04/17/22 20:15 Temperature Pulse Rate 60 66 67 Pulse Rate [Pulse Oximeter] Pulse Rate [Right Pulse Oximeter] Respiratory Rate Blood Pressure 136/81 Blood Pressure [Le ft Radial Artery] Blood Pressure [Ri ght Upper Arm] Pulse Oximetry 98 93 92 Oxygen Delivery Me thod 04/17/22 20:30 04/17/22 20:32 04/17/22 20:45 Temperature Pulse Rate 65 63 68 Pulse Rate [Pulse Oximeter] Pulse Rate [Right Pulse Oximeter] Respiratory Rate Blood Pressure 131/87 Blood Pressure [Le ft Radial Artery] Blood Pressure [Ri ght Upper Arm] Pulse Oximetry 98 97 96 Oxygen Delivery Me thod 04/17/22 21:00 04/17/22 21:02 04/17/22 21:15 Temperature Pulse Rate 67 64 64 Pulse Rate [Pulse Oximeter] Pulse Rate [Right Pulse Oximeter] Respiratory Rate Blood Pressure 140/80 H Blood Pressure [Le ft Radial Artery] Blood Pressure [Ri ght Upper Arm] Pulse Oximetry 99 97 94 Oxygen Delivery Me thod 04/17/22 21:32 04/17/22 21:33 04/17/22 21:45 Temperature Pulse Rate 65 66 74 Pulse Rate [Pulse Oximeter] Pulse Rate [Right Pulse Oximeter] Respiratory Rate Blood Pressure 142/85 H Blood Pressure [Le ft Radial Artery] Blood Pressure [Ri ght Upper Arm] Pulse Oximetry 96 96 100 Oxygen Delivery Me thod 04/17/22 22:00 04/17/22 22:02 04/17/22 22:15 Temperature Pulse Rate 62 63 64 Pulse Rate [Pulse Oximeter] Pulse Rate [Right Pulse Oximeter] Respiratory Rate Blood Pressure 130/87 Blood Pressure [Le ft Radial Artery] Blood Pressure [Ri ght Upper Arm] Pulse Oximetry 95 97 95 Oxygen Delivery Me thod 04/17/22 22:30 04/17/22 22:32 04/17/22 23:03 Temperature 97.7 F Pulse Rate 60 61 Pulse Rate [Pulse Oximeter] 62 Pulse Rate [Right Pulse Oximeter] Respiratory Rate 24 Blood Pressure 137/89 Blood Pressure [Le ft Radial Artery] 146/91 H Blood Pressure [Ri ght Upper Arm] Pulse Oximetry 96 93 96 Oxygen Delivery Me thod Room Air 04/17/22 23:03 04/18/22 02:11 04/18/22 02:25 Temperature 97.6 F Pulse Rate Pulse Rate [Pulse Oximeter] 60 Pulse Rate [Right Pulse Oximeter] Respiratory Rate 209 H 20 Blood Pressure Blood Pressure [Le ft Radial Artery] 123/84 Blood Pressure [Ri ght Upper Arm] Pulse Oximetry 96 94 Oxygen Delivery Me thod Room Air Room Air 04/18/22 02:30 04/18/22 05:00 Temperature 98.1 F Pulse Rate Pulse Rate [Pulse Oximeter] Pulse Rate [Right Pulse Oximeter] Respiratory Rate 20 20 Blood Pressure Blood Pressure [Le ft Radial Artery] 143/81 H Blood Pressure [Ri ght Upper Arm] Pulse Oximetry 94 94 Oxygen Delivery Me thod Room Air Room Air Results Labs Labs: Abnormal lab results 04/17/22 04/17/22 04/17/22 Range/Units 17:55 17:55 18:09 Neut % (Auto) (42.0-72.0) % Lymph % (Auto) (20-44) % Neut # (Auto) (1.7-7.0) K/uL Lymph # (Auto) (0.90-2.90) K/uL INR 2.62 H (0.91-1.10) Creatinine (0.5-1.5) mg/dL Glucose (60-115) mg/dL Calcium (8.4-10.6) mg/dL Troponin I < 0.01 L (0.01-0.04) ng/mL C-Reactive Protein < 0.5 L (0.5-1.0) mg/dL Urine Ketones Trace A (Negative) Ur Leukocyte Esterase 1+ A (Negative) 04/18/22 04/18/22 04/18/22 Range/Units 06:16 06:16 07:34 Neut % (Auto) 89.4 H (42.0-72.0) % Lymph % (Auto) 5.3 L (20-44) % Neut # (Auto) 7.30 H (1.7-7.0) K/uL Lymph # (Auto) 0.40 L (0.90-2.90) K/uL INR (0.91-1.10) Creatinine 0.4 L (0.5-1.5) mg/dL Glucose 167 H (60-115) mg/dL Calcium 8.3 L (8.4-10.6) mg/dL Troponin I (0.01-0.04) ng/mL C-Reactive Protein < 0.5 L (0.5-1.0) mg/dL Urine Ketones (Negative) Ur Leukocyte Esterase (Negative) 04/18/22 Range/Units 07:34 Neut % (Auto) (42.0-72.0) % Lymph % (Auto) (20-44) % Neut # (Auto) (1.7-7.0) K/uL Lymph # (Auto) (0.90-2.90) K/uL INR 1.80 H (0.91-1.10) Creatinine (0.5-1.5) mg/dL Glucose (60-115) mg/dL Calcium (8.4-10.6) mg/dL Troponin I (0.01-0.04) ng/mL C-Reactive Protein (0.5-1.0) mg/dL Urine Ketones (Negative) Ur Leukocyte Esterase (Negative) Diabetes panel 04/17/22 04/18/22 Range/Units 17:55 06:16 Sodium 137 136 (135-149) mmol/L Potassium 4.0 4.2 (3.6-5.1) mmol/L Chloride 106 106 (96-114) mmol/L Carbon Dioxide 26 22 (20-32) mmol/L BUN 13 10 (7-30) mg/dL Creatinine 0.5 0.4 L (0.5-1.5) mg/dL Glucose 95 167 H (60-115) mg/dL Calcium 9.0 8.3 L (8.4-10.6) mg/dL AST 29 (12-35) U/L ALT 20 (4-35) U/L Alkaline Phosphatase 61 (40-150) U/L Total Protein 7.1 (6.0-8.3) g/dL Albumin 4.3 (3.3-5.0) g/dL Thyroid panel 04/18/22 Range/Units 06:16 TSH 0.483 (0.270-4.20) uIU/mL Calcium panel 04/17/22 04/18/22 Range/Units 17:55 06:16 Calcium 9.0 8.3 L (8.4-10.6) mg/dL Albumin 4.3 (3.3-5.0) g/dL Pituitary panel 04/17/22 04/18/22 04/18/22 Range/Units 17:55 06:16 06:16 Sodium 137 136 (135-149) mmol/L Potassium 4.0 4.2 (3.6-5.1) mmol/L Chloride 106 106 (96-114) mmol/L Carbon Dioxide 26 22 (20-32) mmol/L BUN 13 10 (7-30) mg/dL Creatinine 0.5 0.4 L (0.5-1.5) mg/dL Glucose 95 167 H (60-115) mg/dL Calcium 9.0 8.3 L (8.4-10.6) mg/dL TSH 0.483 (0.270-4.20) uIU/mL Adrenal panel 04/17/22 04/18/22 Range/Units 17:55 06:16 Sodium 137 136 (135-149) mmol/L Potassium 4.0 4.2 (3.6-5.1) mmol/L Chloride 106 106 (96-114) mmol/L Carbon Dioxide 26 22 (20-32) mmol/L BUN 13 10 (7-30) mg/dL Creatinine 0.5 0.4 L (0.5-1.5) mg/dL Glucose 95 167 H (60-115) mg/dL Calcium 9.0 8.3 L (8.4-10.6) mg/dL Total Bilirubin 1.0 (0.1-1.5) mg/dL AST 29 (12-35) U/L ALT 20 (4-35) U/L Alkaline Phosphatase 61 (40-150) U/L Total Protein 7.1 (6.0-8.3) g/dL Albumin 4.3 (3.3-5.0) g/dL All other labs normal. Imaging Abdomen CT scan report/results: report reviewed and image reviewed Additional studies: INDICATION: Abdominal pain, small-bowel obstruction suspected. TECHNIQUE: CT abdomen and pelvis acquired with 93 mL Isovue 370 contrast. COMPARISON: None available. FINDINGS: Lower chest: Scattered subsegmental atelectasis. No focal consolidation. Liver: Left lobe of the liver is either severely atrophic or surgically absent. Too small to characterize hypodense lesion in segment 6, likely benign in the absence of a known malignancy. Gallbladder and bile ducts: Gallbladder is surgically absent. Prominence of the biliary ducts, likely secondary to postcholecystectomy state. Pancreas: Fatty atrophy. Spleen: Unremarkable. Adrenal glands: Unremarkable. Kidneys: Kidneys enhance symmetrically, without hydronephrosis. Too small to characterize bilateral renal lesions. Retroperitoneum: No lymphadenopathy. Bowel and mesentery: Scattered colonic diverticulosis, without evidence of acute diverticulitis. Multiple dilated fluid-filled loops of small bowel consistent with small bowel obstruction. The transition point is in the right lower quadrant in the region of the distal ileum (series 2, image 64). There is mild volume ascites and mesenteric edema. Laparoscopic gastric band is in place, and is malpositioned. The phi angle is approximately 90 degrees (normal range 4-58 degrees). Bladder: Unremarkable for degree of distension. Reproductive organs: Posthysterectomy. Pelvic lymph nodes: No lymphadenopathy. Vessels: Scattered atherosclerotic calcifications. Abdominal wall: Lap band port is present in the ventral abdominal wall. Bones: Multilevel degenerative changes of the spine. Bones are osteopenic. IMPRESSION: 1. Multiple dilated fluid-filled loops of small bowel consistent with small bowel obstruction, with transition point in the right lower quadrant of the abdomen. Mild volume ascites and mesenteric edema is present. 2. Laparoscopic gastric band is in place, malpositioned. Phi angle is approximately 90 degrees (normal range 40-58 degrees). 3. Left lobe of the liver is either severely atrophic or surgically absent. Please note that all CT scans at this facility use dose modulation, iterative reconstruction, and/or weight-based dosing when appropriate to reduce radiation dose to as low as reasonably achievable. Dictated by Daniela Wilson MD @ 04/17/2022 8:25:53 PM Assessment and Plan Assessment and plan (1) Chronic anticoagulation: Problem comment: Reverse anticoagulation now with vitamin K. anticipate possible transfer for bariatric surgery. Bridge with prophylactic dose enoxaparin if transfer is delayed Status: Acute (2) Small bowel obstruction: Problem comment: If possible transfer for bariatric surgery. Consult with bariatric surgeon with our surgery staff to help plan next steps. Place NG tube. IV fluids. Pain medications. Reverse anticoagulation. Enoxaparin when INR is normalized. Status: Acute Plan The patient is a 72-year-old female with a possible bowel obstruction. After reviewing the images myself and also with the radiologist, it appears as though the Small-bowel is herniated through the tubing of her lap band. The bowel appears perfused, however there is venous congestion suggesting venous outflow obstruction. Incidentally, the band has migrated as well. her labs are reassuring though she has started to have a left shift today on her white blood cells and I am concerned about her persistent pain. I did get in touch with the bariatric surgery service at [facility] who accepted the patient. We are working on transferring her expeditiously this afternoon.
--- NOTE | 2022-04-18 12:30 | PM.IMPN1 ---
Progress Note: A&P Assessment and plan (1) Chronic anticoagulation: Problem details: Reverse anticoagulation now with vitamin K. anticipate possible transfer for bariatric surgery. Bridge with prophylactic dose enoxaparin if transfer is delayed Status: Acute (2) Small bowel obstruction: Problem details: If possible transfer for bariatric surgery. Consult with bariatric surgeon with our surgery staff to help plan next steps. Place NG tube. IV fluids. Pain medications. Reverse anticoagulation. Enoxaparin when INR is normalized. Status: Acute Time Spent With Patient Total time spent: Total time spent today is 45 minutes, 35 minutes in coordination care and discussing with patient and other providers management of abdominal pain and bowel obstruction after bariatric surgery. Subjective Date Seen: 04/18/22 Interval history: 72-year-old female admitted to the hospital with severe nausea and abdominal pain. Admission this was felt to be small-bowel obstruction. Incidentally noted lap band that was displaced. Patient received an NG tube which is had moderate output. She got essentially no relief from this and is continued to have fairly severe pain and nausea. In reviewing this with general surgery and Radiology there was concern that the lap band device has migrated to a point where it is wrapped around the mesentery. Concern is that this is causing her symptoms. She had this procedure performed at [facility] in [facility] in about 2007. I have been calling their to discuss a plan of care with the bariatric surgery. That is still pending. At this time they have no available beds. Other tertiary care hospitals also have no available beds. Exam Narrative: Exam Narrative: She is alert. She appears mildly uncomfortable. She is oriented to her circumstances. Respirations are clear. Cardiovascular: S1, S2, regular rate and rhythm. Abdomen: Diminished bowel sounds. Abdomen has diffuse tenderness. Abdomen is not distended. NG tube is removing greenish colored fluid from her stomach. Extremities without significant edema. Const: Vital Signs, click to edit/add: Vital Signs - 24 hr 04/17/22 17:44 04/17/22 18:31 04/17/22 18:33 Temperature 98.3 F Pulse Rate 58 L 63 Pulse Rate [Pulse Oximeter] Pulse Rate [Right Pulse Oximeter] 78 Respiratory Rate 18 Blood Pressure 154/94 H Blood Pressure [Le ft Radial Artery] Blood Pressure [Ri ght Arm] Blood Pressure [Ri ght Upper Arm] 154/94 H Pulse Oximetry 95 97 98 Oxygen Delivery Me thod Room Air Oxygen Flow Rate 04/17/22 18:45 04/17/22 19:00 04/17/22 19:02 Temperature Pulse Rate 66 62 63 Pulse Rate [Pulse Oximeter] Pulse Rate [Right Pulse Oximeter] Respiratory Rate Blood Pressure 131/86 Blood Pressure [Le ft Radial Artery] Blood Pressure [Ri ght Arm] Blood Pressure [Ri ght Upper Arm] Pulse Oximetry 94 97 98 Oxygen Delivery Me thod Oxygen Flow Rate 04/17/22 19:03 04/17/22 20:03 04/17/22 20:15 Temperature Pulse Rate 60 66 67 Pulse Rate [Pulse Oximeter] Pulse Rate [Right Pulse Oximeter] Respiratory Rate Blood Pressure 136/81 Blood Pressure [Le ft Radial Artery] Blood Pressure [Ri ght Arm] Blood Pressure [Ri ght Upper Arm] Pulse Oximetry 98 93 92 Oxygen Delivery Me thod Oxygen Flow Rate 04/17/22 20:30 04/17/22 20:32 04/17/22 20:45 Temperature Pulse Rate 65 63 68 Pulse Rate [Pulse Oximeter] Pulse Rate [Right Pulse Oximeter] Respiratory Rate Blood Pressure 131/87 Blood Pressure [Le ft Radial Artery] Blood Pressure [Ri ght Arm] Blood Pressure [Ri ght Upper Arm] Pulse Oximetry 98 97 96 Oxygen Delivery Me thod Oxygen Flow Rate 04/17/22 21:00 04/17/22 21:02 04/17/22 21:15 Temperature Pulse Rate 67 64 64 Pulse Rate [Pulse Oximeter] Pulse Rate [Right Pulse Oximeter] Respiratory Rate Blood Pressure 140/80 H Blood Pressure [Le ft Radial Artery] Blood Pressure [Ri ght Arm] Blood Pressure [Ri ght Upper Arm] Pulse Oximetry 99 97 94 Oxygen Delivery Me thod Oxygen Flow Rate 04/17/22 21:32 04/17/22 21:33 04/17/22 21:45 Temperature Pulse Rate 65 66 74 Pulse Rate [Pulse Oximeter] Pulse Rate [Right Pulse Oximeter] Respiratory Rate Blood Pressure 142/85 H Blood Pressure [Le ft Radial Artery] Blood Pressure [Ri ght Arm] Blood Pressure [Ri ght Upper Arm] Pulse Oximetry 96 96 100 Oxygen Delivery Me thod Oxygen Flow Rate 04/17/22 22:00 04/17/22 22:02 04/17/22 22:15 Temperature Pulse Rate 62 63 64 Pulse Rate [Pulse Oximeter] Pulse Rate [Right Pulse Oximeter] Respiratory Rate Blood Pressure 130/87 Blood Pressure [Le ft Radial Artery] Blood Pressure [Ri ght Arm] Blood Pressure [Ri ght Upper Arm] Pulse Oximetry 95 97 95 Oxygen Delivery Me thod Oxygen Flow Rate 04/17/22 22:30 04/17/22 22:32 04/17/22 23:03 Temperature 97.7 F Pulse Rate 60 61 Pulse Rate [Pulse Oximeter] 62 Pulse Rate [Right Pulse Oximeter] Respiratory Rate 24 Blood Pressure 137/89 Blood Pressure [Le ft Radial Artery] 146/91 H Blood Pressure [Ri ght Arm] Blood Pressure [Ri ght Upper Arm] Pulse Oximetry 96 93 96 Oxygen Delivery Me thod Room Air Oxygen Flow Rate 04/17/22 23:03 04/18/22 02:11 04/18/22 02:25 Temperature 97.6 F Pulse Rate Pulse Rate [Pulse Oximeter] 60 Pulse Rate [Right Pulse Oximeter] Respiratory Rate 209 H 20 Blood Pressure Blood Pressure [Le ft Radial Artery] 123/84 Blood Pressure [Ri ght Arm] Blood Pressure [Ri ght Upper Arm] Pulse Oximetry 96 94 Oxygen Delivery Me thod Room Air Room Air Oxygen Flow Rate 04/18/22 02:30 04/18/22 05:00 04/18/22 07:00 Temperature 98.1 F Pulse Rate Pulse Rate [Pulse Oximeter] Pulse Rate [Right Pulse Oximeter] Respiratory Rate 20 20 20 Blood Pressure Blood Pressure [Le ft Radial Artery] 143/81 H Blood Pressure [Ri ght Arm] Blood Pressure [Ri ght Upper Arm] Pulse Oximetry 94 94 91 Oxygen Delivery Me thod Room Air Room Air Nasal Cannula Oxygen Flow Rate 2 04/18/22 07:00 Temperature 98.3 F Pulse Rate Pulse Rate [Pulse Oximeter] 80 Pulse Rate [Right Pulse Oximeter] Respiratory Rate 20 Blood Pressure Blood Pressure [Le ft Radial Artery] Blood Pressure [Ri ght Arm] 137/80 Blood Pressure [Ri ght Upper Arm] Pulse Oximetry 91 Oxygen Delivery Me thod Room Air Oxygen Flow Rate Documenting provider has reviewed patient's vital signs: yes Labs Labs: Laboratory Results - last 24 hr 04/17/22 04/17/22 04/17/22 17:55 17:55 17:55 WBC 7.21 RBC 4.60 Hgb 13.8 Hct 40.4 MCV 88 MCH 30 MCHC 34 RDW Coeff of Goran 12.2 Plt Count 219 Neut % (Auto) 64.4 Lymph % (Auto) 23.4 Greene % (Auto) 10.7 Eos % (Auto) 1.1 Baso % (Auto) 0.3 Neut # (Auto) 4.64 Lymph # (Auto) 1.69 Greene # (Auto) 0.80 Eos # (Auto) 0.08 Baso # (Auto) 0.02 Abs Immat Gran (auto) 0.01 Imm/Tot Granulo (auto) 0.1 INR Sodium 137 Potassium 4.0 Chloride 106 Carbon Dioxide 26 BUN 13 Creatinine 0.5 Estimated Creat Clear 44.41 Estimated GFR 98 Glucose 95 Lactate 1.2 Calcium 9.0 Total Bilirubin 1.0 AST 29 ALT 20 Alkaline Phosphatase 61 Troponin I < 0.01 L C-Reactive Protein < 0.5 L Total Protein 7.1 Albumin 4.3 Lipase 86 TSH Urine Color Urine Appearance Urine pH Ur Specific [place] Urine Protein Urine Glucose (UA) Urine Ketones Urine Blood Urine Nitrite Urine Bilirubin Urine Urobilinogen Ur Leukocyte Esterase Urine RBC Urine WBC Ur Squamous Epith Cells Urine Bacteria SARS-CoV-2 (PCR) 04/17/22 04/17/22 04/17/22 17:55 18:09 20:41 WBC RBC Hgb Hct MCV MCH MCHC RDW Coeff of Goran Plt Count Neut % (Auto) Lymph % (Auto) Greene % (Auto) Eos % (Auto) Baso % (Auto) Neut # (Auto) Lymph # (Auto) Greene # (Auto) Eos # (Auto) Baso # (Auto) Abs Immat Gran (auto) Imm/Tot Granulo (auto) INR 2.62 H Sodium Potassium Chloride Carbon Dioxide BUN Creatinine Estimated Creat Clear Estimated GFR Glucose Lactate Calcium Total Bilirubin AST ALT Alkaline Phosphatase Troponin I C-Reactive Protein Total Protein Albumin Lipase TSH Urine Color Yellow Urine Appearance Clear Urine pH 6.0 Ur Specific [place] 1.015 Urine Protein Negative Urine Glucose (UA) Negative Urine Ketones Trace A Urine Blood Negative Urine Nitrite Negative Urine Bilirubin Negative Urine Urobilinogen 0.2 Ur Leukocyte Esterase 1+ A Urine RBC 0-2 Urine WBC 2-5 Ur Squamous Epith Cells Few Urine Bacteria None SARS-CoV-2 (PCR) Negative SARS-CoV-2 04/18/22 04/18/22 04/18/22 06:16 06:16 06:16 WBC RBC Hgb Hct MCV MCH MCHC RDW Coeff of Goran Plt Count Neut % (Auto) Lymph % (Auto) Greene % (Auto) Eos % (Auto) Baso % (Auto) Neut # (Auto) Lymph # (Auto) Greene # (Auto) Eos # (Auto) Baso # (Auto) Abs Immat Gran (auto) Imm/Tot Granulo (auto) INR Sodium 136 Potassium 4.2 Chloride 106 Carbon Dioxide 22 BUN 10 Creatinine 0.4 L Estimated Creat Clear 44.41 Estimated GFR 104 Glucose 167 H Lactate Calcium 8.3 L Total Bilirubin AST ALT Alkaline Phosphatase Troponin I C-Reactive Protein < 0.5 L Total Protein Albumin Lipase TSH 0.483 Urine Color Urine Appearance Urine pH Ur Specific [place] Urine Protein Urine Glucose (UA) Urine Ketones Urine Blood Urine Nitrite Urine Bilirubin Urine Urobilinogen Ur Leukocyte Esterase Urine RBC Urine WBC Ur Squamous Epith Cells Urine Bacteria SARS-CoV-2 (PCR) 04/18/22 04/18/22 04/18/22 07:34 07:34 09:13 WBC 8.16 RBC 4.36 Hgb 13.1 Hct 39.0 MCV 89 MCH 30 MCHC 34 RDW Coeff of Goran 12.2 Plt Count 175 Neut % (Auto) 89.4 H Lymph % (Auto) 5.3 L Greene % (Auto) 5.0 Eos % (Auto) 0.0 Baso % (Auto) 0.1 Neut # (Auto) 7.30 H Lymph # (Auto) 0.40 L Greene # (Auto) 0.40 Eos # (Auto) 0.00 Baso # (Auto) 0.01 Abs Immat Gran (auto) 0.02 Imm/Tot Granulo (auto) 0.2 INR 1.80 H Sodium Potassium Chloride Carbon Dioxide BUN Creatinine Estimated Creat Clear Estimated GFR Glucose Lactate 1.6 Calcium Total Bilirubin AST ALT Alkaline Phosphatase Troponin I C-Reactive Protein Total Protein Albumin Lipase TSH Urine Color Urine Appearance Urine pH Ur Specific [place] Urine Protein Urine Glucose (UA) Urine Ketones Urine Blood Urine Nitrite Urine Bilirubin Urine Urobilinogen Ur Leukocyte Esterase Urine RBC Urine WBC Ur Squamous Epith Cells Urine Bacteria SARS-CoV-2 (PCR)
[2022-04-18] MEDS: LORazepam 2 MG/ML inj IVP (12:55)
--- NOTE | 2022-04-18 16:49 | PC.NURSE ---
Patient drowsy but oriented x 4, bowel sounds were hypoactive, NG tube initially patent, draining, and brown. Around 1330 NG occluded, NG irrigated with success. Around 1440 NG occluded again, was unable to irrigate, MD updated. Per MD adjust NG tube from 58 cm to 53 cm, patient tolerated well, patentcy regained. Patient reported pain 8/10 in abdomen, pain managed with PRN meds. Patient reported constant nausea, initially managed with ondansetron but nausea persisted, PRN Ativan given with relief. Patient was up with SBA. Patient transfer via EMS to [facility]. present. Nurse to Nurse report given. ([phone]). IV left in place.
== END 2022-04-18 16:20 | disposition short-term general hospital (02) | DRG 394 ==
LOC: ED 18:42 → MEDSURG 22:41
PROVIDERS: Surgery; Admitting Provider Family Medicine; Emergency Provider Family Medicine; Visit Provider Family Medicine
DX: K95.09 Other complications of gastric band procedure (principal); D68.51 Activated protein C resistance; K56.609 Unspecified intestinal obstruction, unspecified as to partial versus complete obstruction; Z98.84 Bariatric surgery status; I77.819 Aortic ectasia, unspecified site; Z79.01 Long term (current) use of anticoagulants; I48.91 Unspecified atrial fibrillation; Z86.718 Personal history of other venous thrombosis and embolism
CPT/HCPCS: 36415; 71045; 74177; 80048; 80053; 81003; 81015; 83605; 83690; 84443; 84484; 85025; 85610; 86140; 87635; 99283; 99285; A9270; J1170; J2060; J2405; J3430; J7120; Q9967

== ENCOUNTER 2022-04-18 16:06 | Outpatient (CLI) | payer MEDICARE, SELFPAY | END 2022-04-18 16:07 | disposition home or self-care (01) | LOC: AMB 04-27 19:58 | PROVIDERS: Visit Provider Family Medicine | DX: K56.609 Unspecified intestinal obstruction, unspecified as to partial versus complete obstruction (principal) | CPT/HCPCS: A0425; A0426 ==

== ENCOUNTER 2024-01-15 12:23 | Emergency (ER) | payer MEDICARE, SELFPAY ==
[2024-01-15] VITALS (9 sets, daily range): BP systolic 124–135; BP diastolic 89–105; PULSE 66–76; RESP 16–20; TEMP 36.8–37.7; O2SAT 93–96; BMI 32.8
--- NOTE | 2024-01-15 12:39 | ED_ITS ---
HPI - General Adult General Chief complaint: Chest Pain Stated complaint: left side pain,difficulty breathing Time Seen by Provider: 01/15/24 12:25 History of Present Illness HPI narrative: last Sunday was diagnose with [facility]. on antibiotic's. left side lower chest pain with coughing and now Pepper pain. sitting 10/14 10/10 coughing/ . triple swab was negative, C/ p and SOB. using inhaler's . 73-year-old woman presenting to the emergency department concern of left side pain and difficulty breathing. Has been sick now approximately a week. Four days ago was seen in clinic and diagnosed with a left lower lung pneumonia initiated on antibiotics. Has been coughing and had subsequent left low chest pain now much worse with coughing and deep breath. Relatively constant in pain. She is not having any constipation or diarrhea reported. No melena or hem atochezia. Unknown whether not she has diverticular disease. Has been taking only acetaminophen with limited effect on her pain. Was also given an inhaler likely albuterol and does not think there is anything left there. Does not have underlying respiratory disease that she knows of. Does have a history of recurrent DVT particular the left leg with factor 5 Leiden mutation. She has been continued than on Coumadin. There is also history of atrial fibrillation. Has not had a fever but notes her temperature today of 99.8 on arrival to be elevated for her. No rashes noted. Does have swelling in her left leg per usual. Screened herself negative for COVID was also tested negative for COVID in clinic she says. Related Data Home Medications ?Medication ?Instructions ?Recorded ?Confirmed psyllium seed (sugar) oral powder 1 tbsp PO DAILY 04/17/22 04/18/22 (Metamucil (sugar) oral powder) warfarin 7.5 mg tablet 7.5 mg PO DAILY 04/17/22 04/17/22 Cheryl 1 ea PO DAILY 04/18/22 04/18/22 Lactobacillus acidophilus 1 tab PO DAILY 04/18/22 04/18/22 (Acidophilus chewable tablet) cholecalciferol (vitamin D3) 50 50 mcg PO DAILY 04/18/22 04/18/22 mcg (2,000 unit) capsule multivitamin (Daily Multi-Vitamin 1 tab PO DAILY 04/18/22 04/18/22 tablet) omega 0-ccz-acj-fish oil 1,000 mg 1 cap PO DAILY 04/18/22 04/18/22 (120 mg-180 mg) capsule (Fish Oil) turmeric 400 mg capsule 400 mg PO DAILY 04/18/22 04/18/22 vit 1 tab PO DAILY 04/18/22 04/18/22 [id number] 500 mg-50 mg-25 mg-40 mg tablet (Bioflex) vitamin B complex 1 tab PO DAILY 04/18/22 04/18/22 Previous Rx's ?Medication ?Instructions ?Recorded amoxicillin 500 mg capsule 2,000 mg (4 x 500 mg) PO ONCE #4 04/04/23 caps hydrocodone 5 mg-acetaminophen 325 1 - 2 tab PO TID PRN pain #10 tabs 01/15/24 mg tablet ondansetron 4 mg disintegrating 4 mg PO Q4H PRN nausea and 01/15/24 tablet vomiting #12 tabs prednisone 20 mg tablet 40 mg (2 x 20 mg) PO DAILY 4 days 01/15/24 #8 tabs Allergies Allergy/AdvReac Type Severity Reaction Status Date / Time No Known Drug Allergies Allergy Verified 04/17/22 19:20 Review of Systems Status of ROS: Reports: 6 or more systems reviewed and unremarkable except as noted in History and below [facility] Medical History Chronic anticoagulation ?Z79.01 - retirement (current) use of anticoagulants (ICD-10) Family history of cholecystectomy ?Z83.79 - Family history of other diseases of the digestive system (ICD-10) History of atrial fibrillation ?Z86.79 - Personal history of other diseases of the circulatory system (ICD- 10) History of thyrotoxicosis ?Z86.39 - Personal history of other endocrine, nutritional and metabolic disease (ICD-10) History of DVT (deep vein thrombosis) ?Z86.718 - Personal history of other venous thrombosis and embolism (ICD-10) Factor 5 Leiden mutation, heterozygous ?D68.51 - Activated protein C resistance (ICD-10) Ascending aorta dilatation ?I77.810 - Thoracic aortic ectasia (ICD-10) History of paroxysmal supraventricular tachycardia ?Z86.79 - Personal history of other diseases of the circulatory system (ICD- 10) Surgical History History of arthroscopy of both knees ?Z98.890 - Other specified postprocedural states (ICD-10) History of arthroplasty of right knee ?Z96.651 - Presence of right artificial knee joint (ICD-10) History of tonsillectomy and adenoidectomy ?Z90.89 - Acquired absence of other organs (ICD-10) History of abdominal hysterectomy ?Z90.710 - Acquired absence of both cervix and uterus (ICD-10) Hx of laparoscopic gastric banding ?Z98.84 - Bariatric surgery status (ICD-10) History of abdominoplasty ?Z98.890 - Other specified postprocedural states (ICD-10) Status post catheter ablation of atrial fibrillation ?Z98.890 - Other specified postprocedural states (ICD-10) Family History Mother Renal cell carcinoma Breast cancer Father Aortic dissection Brother Aortic dissection Social History Narrative: She lives in [place] with her . She has 2 grown daughters and grandchildren. She is a former smoker having smoked to half pack a day for 30 years and quitting about 25 years ago. She drinks alcohol about 2 times a week. Her is healthcare power of contract attorney. Code status is full. Highest level of school completed/degree received: high school graduate Smoking Status: Former smoker Second hand tobacco smoke exposure: No How often do you have a drink containing alcohol: 2-4 times a month Alcohol type: hard liquor How many standard drinks containing alcohol do you have on a typical day: 1 or 2 How often do you have six or more drinks on one occasion: Never AUDIT-C Alcohol total score: 2 Non-prescribed substance use: denies use Caffeine: Yes (2 cups a day) service: No Exam Narrative: Exam Narrative: Pleasant. Carefully groomed. Skin is warm and dry. She is well-perfused peripherally. There is soft edema about the left ankle in particular. Mildly tachypneic. Splinting. Lungs with trace crepitus persistent in the left lower lung. She has good air movement. Is coughing with these inspiratory efforts. Does not actually have pain to palpation over the chest wall. Does have pain at the left rib margin but more so very tender in the left upper abdomen. Soft. She guards a little bit here. No flank pain. Heart is in a regular rate. Ectopic beats but I think in a regular rhythm otherwise. Const: Vital Signs, click to edit/add: Vital Signs - 24 hr 01/15/24 12:30 01/15/24 12:46 01/15/24 13:00 Temperature 99.8 F H Pulse Rate Pulse Rate [Right Radial] 76 Respiratory Rate 20 Blood Pressure [Ri ght Upper Arm] 135/89 131/105 H 124/91 H Pulse Oximetry 96 Oxygen Delivery Me thod Room Air 01/15/24 13:30 01/15/24 14:00 01/15/24 14:00 Temperature Pulse Rate Pulse Rate [Right Radial] 66 Respiratory Rate 16 Blood Pressure [Ri ght Upper Arm] 134/104 H 134/96 H Pulse Oximetry 96 93 Oxygen Delivery Me thod Room Air 01/15/24 14:04 01/15/24 14:10 01/15/24 14:15 Temperature 98.3 F Pulse Rate 69 Pulse Rate [Right Radial] Respiratory Rate Blood Pressure [Ri ght Upper Arm] Pulse Oximetry 94 93 94 Oxygen Delivery Me thod 01/15/24 14:20 Temperature Pulse Rate Pulse Rate [Right Radial] Respiratory Rate Blood Pressure [Ri ght Upper Arm] Pulse Oximetry 95 Oxygen Delivery Me thod Documenting provider has reviewed patient's vital signs: yes Course Vital Signs Vital signs: Initial Vital Signs Temperature 99.8 F H 01/15/24 12:30 Temperature Source Temporal Artery Scan 01/15/24 12:30 Pulse Rate 76 01/15/24 12:30 Pulse Rhythm Regular 01/15/24 12:30 Pulse Strength 3+ Normal 01/15/24 12:30 Respiratory Rate 20 01/15/24 12:30 Blood Pressure 135/89 01/15/24 12:30 Blood Pressure Mean 104 01/15/24 12:30 Blood Pressure Position Sitting 01/15/24 12:30 Pulse Oximetry 96 01/15/24 12:30 Oxygen Delivery Method Room Air 01/15/24 12:30 Vital Signs Temperature 99.8 F H 01/15/24 12:30 Pulse Rate 76 01/15/24 12:30 Respiratory Rate 20 01/15/24 12:30 Blood Pressure 135/89 01/15/24 12:30 Pulse Oximetry 96 01/15/24 12:30 Oxygen Delivery Method Room Air 01/15/24 12:30 Temperature 98.3 F 01/15/24 14:04 Pulse Rate 69 01/15/24 14:15 Respiratory Rate 16 01/15/24 14:00 Blood Pressure 134/96 H 01/15/24 14:00 Pulse Oximetry 95 01/15/24 14:20 Oxygen Delivery Method Room Air 01/15/24 14:00 Medications Administered Medications: Discontinued Medications Generic Name Dose Route Start Last Admin Trade Name Freminerva PRN Reason Stop Dose Admin Sodium Chloride 1,000 mls @ 1,000 mls/hr 01/15/24 12:51 01/15/24 15:42 0.9 % Sodium Chloride 1000 Ml IV 01/15/24 13:50 Infused .Q1H ONE Infusion Lidocaine 1 patch 01/15/24 12:53 01/15/24 13:45 Lidocaine 5% Patch TRANSDERMA 01/15/24 12:54 1 patch ONCE ONE Administration Protocol Morphine Sulfate 2 mg 01/15/24 12:53 01/15/24 13:46 Morphine 2 Mg/Ml Inj IVP 01/15/24 12:54 2 mg ONCE ONE Administration Medical Decision Making MDM Narrative Medical decision making narrative: Does not have known diverticular disease but this would be a point of pain. Likely is musculoskeletal just given the persistent coughing. Would have concerns about development of a pulmonary effusion this could be causing pain into this area as well. Clearly is generally worsening. Will be doing imaging of chest and abdomen. I suppose could also have splenic rupture/bleed. Pneumothorax? Pneumomediastinum? Will give IV fluids low-dose morphine as anticoagulated. Improved with treatments as above. She did think that the lidocaine patch might be helping. I did review images of chest abdomen pelvis. Inflammatory or masslike changes in the abdominal wall in the area of pain. Radiology over-read as below Technique: CT of the chest, abdomen, and pelvis was obtained with 96 mL of Isovue 370 intravenous contrast. Please note that all CT scans at this facility use dose modulation, iterative reconstruction, and/or weight-based dosing when appropriate to reduce radiation dose to as low as reasonably achievable. Comparison: 04/17/2022 Findings: CHEST: Medical devices: None. Thyroid: Multinodular thyroid. 2.0 centimeter left thyroid nodule (2/6). Lymph nodes: No supraclavicular, axillary, mediastinal, or hilar lymphadenopathy. Vasculature: Mildly enlarged main pulmonary artery measuring 3.1 centimeter in diameter (2/46). Mildly ectatic ascending thoracic aorta measuring 4.2 centimeter (2/46). Aberrant right subclavian artery. Heart: Mild coronary artery calcification. No pericardial effusion. Other mediastinal structures: Small hiatal hernia. Lung parenchyma and pleura: 3 millimeter right upper lobe pulmonary nodule (4/15). 3 millimeter right lower lobe pulmonary nodule (4/60). Redemonstration of 6 millimeter subpleural left lower lobe pulmonary nodule (4/81). Moderate patchy left upper lobe airspace opacities. Airways: No significant abnormality. Chest wall: No significant abnormality. ABDOMEN/PELVIS: Liver and biliary tree: Subcentimeter hypoattenuating lesions are too small to characterize and are favored to represent cysts. Gallbladder: Status post cholecystectomy. Spleen: Normal. Pancreas: Mild fatty atrophy. Adrenal glands: Normal. Kidneys and ureters: No hydronephrosis. No obstructing renal calculi. Redemonstration of subcentimeter partially calcified exophytic right renal lesion (1/66), which is too small to characterize. Gastrointestinal tract: Mild descending and sigmoid colonic diverticulosis without CT evidence of acute diverticulitis. Small to moderate stool burden. No evidence of acute appendicitis. No evidence of bowel obstruction. Peritoneal cavity: Normal. Bladder: Normal. Pelvic organs: Status post hysterectomy. Vasculature: Mild calcification. Lymph nodes: Normal. Abdominal wall: Moderate fat containing supraumbilical ventral hernia. Ill-defined expansile hyperattenuation within the left rectus muscle measuring 4.4 x 2.6 x 3.7 centimeter (1/59, 6/223) with mild surrounding fat stranding. Small fat containing right inguinal hernia. Musculoskeletal: Mild degenerative changes of the bilateral hips. Moderate degenerative changes of the visualized spine. Impression: 1. Moderate patchy left upper lobe airspace opacities are compatible with infection. 2. Ill-defined expansile hyperattenuation within the left rectus muscle measuring 4.4 x 2.6 x 3.7 centimeter with mild surrounding fat stranding. This is favored to represent a hematoma versus less likely solid lesion; consider correlation with history of trauma. 3. Right-sided pulmonary nodules measuring up to 3 millimeter. Consensus guidelines for single or multiple solid lung nodules less than 6 mm, not applicable if known malignancy or immunocompromise: Low risk: No routine follow-up. High risk AND nodule(s) with suspicious morphology OR in upper lobe: Strongly consider CT at 12 months. (Bogdan et al. Radiology 2017) 4. 2.0 centimeter left thyroid nodule. Recommend further evaluation with ultrasound for a thyroid nodule measuring <= 1.5 cm in a patient <= 35 years of age, as is appropriate taking into consideration the patient???s comorbidities and life expectancy. Adapted from Consensus Recommendations, J Am Pedro Radiol 2015;12:143???150. 5. Mildly enlarged main pulmonary artery, which may be seen in the setting of pulmonary hypertension. 6. Mildly ectatic ascending thoracic aorta measuring 4.2 centimeter. Discussed all findings here with Ms. Hein and her . Given copy of radiology over-read as well as disc of images. Would continue with her doxycycline at this point. Has only been taking for a few days. I think it would be safe for her to hold her Coumadin for couple of days pending worsening/stabilization of this rectus sheath hematoma. INR is at upper and of goal range. I presume this hematoma is secondary to coughing. See patient discharge plan of discussion Medical Records Medical records reviewed: Yes I reviewed the patient's medical records Lab Data Lab results reviewed: Yes I reviewed the patient's lab results Labs: Lab Results 01/15/24 Range/Units 13:15 WBC 6.30 (4.50-11.00) K/uL RBC 4.45 (4.00-5.20) m/uL Hgb 13.2 (12.0-16.0) gm/dL Hct 39.6 (33.0-51.0) % MCV 89 (80-100) fL MCH 30 (26-34) pg MCHC 33 (32-36) gm/dL RDW Coeff of Goran 12.1 (11.5-15.5) % Plt Count 200 (140-440) K/uL Neut % (Auto) 65.2 (42.0-72.0) % Lymph % (Auto) 22.9 (20-44) % Swain % (Auto) 9.8 (0.0-11.0) % Eos % (Auto) 1.6 (0.0-7.0) % Baso % (Auto) 0.3 (0.0-3.0) % Neut # (Auto) 4.11 (1.7-7.0) K/uL Lymph # (Auto) 1.44 (0.90-2.90) K/uL Swain # (Auto) 0.60 (0.00-0.90) K/UL Eos # (Auto) 0.10 (0.00-0.50) K/uL Baso # (Auto) 0.02 (0.00-0.30) K/uL Abs Immat Gran (auto) 0.01 (0.00-0.30) K/uL Imm/Tot Granulo (auto) 0.2 % INR 2.96 H (0.91-1.10) D-Dimer Quant (PE/DVT) < 0.27 (0.00-0.50) ug/ml VBG pH 7.417 (7.32-7.43) VBG pCO2 46 (40-50) mmHG VBG pO2 < 30.1 (25-47) mmHG VBG HCO3 29 H (21-28) mmol/L Sodium 136 (135-149) mmol/L Potassium 4.2 (3.6-5.1) mmol/L Chloride 102 (96-114) mmol/L Carbon Dioxide 27 (20-32) mmol/L Anion Gap 7 (7-15) mEq/L BUN 14 (7-30) mg/dL Creatinine 0.5 (0.5-1.5) mg/dL Estimated Creat Clear 43.74 Estimated GFR 98 ml/min Glucose 89 (60-115) mg/dL Calcium 9.3 (8.4-10.6) mg/dL C-Reactive Protein 0.8 (0.5-1.0) mg/dL ECG Data Attestation: I personally reviewed and interpreted this ECG as follows: (Normal sinus rhythm though rather irregular baseline. rate of 60) Discharge Plan Discharge Clinical Impression: Rectus sheath hematoma, Pneumonia, Cough Patient Disposition: Home w/ Parent or Adult Condition: Improved Additional Instructions: You might apply ice packs over this area of pain few times daily over the next few days. Would consider holding your Coumadin for the next 2 days. Be seen for marked increase in swelling, uncontrolled pain, increasing persistent shortness of breath, persistent fever. Continue your doxycycline at this time. Follow-up at next? week's clinic appointment regarding findings in your imaging today. Consider sleeping of the mist of a cool mist humidifier. Sucking on ice chips might help with the cough. This lidocaine patch appears to be helpful for you; you can purchase more [id number]. Otherwise if needed Zofran for nausea, Poulan for more intense pain, prednisone for inflammation Prescriptions: New prednisone 20 mg tablet 40 mg PO DAILY 4 Days Qty: 8 1RF hydrocodone-acetaminophen 5-325 mg tablet 1 - 2 tab PO TID PRN (Reason: pain) Qty: 10 0RF ondansetron 4 mg tablet,disintegrating 4 mg PO Q4H PRN (Reason: nausea and vomiting) Qty: 12 1RF No Action warfarin 7.5 mg tablet 7.5 mg PO DAILY Patient Comments: TAKE BY MOUTH 7.5 MG (7.5 MG X 1) DAILY IN THE EVENING OR DIRECTED Metamucil (sugar) Powder 1 tbsp PO DAILY multivitamin [Daily Multi-Vitamin] Tablet 1 tab PO DAILY omega 5-veu-fcc-fish oil [Fish Oil] 1,000 mg (120 mg-180 mg) capsule 1 cap PO DAILY vitamin B complex Tablet 1 tab PO DAILY turmeric 400 mg capsule 400 mg PO DAILY cholecalciferol (vitamin D3) 50 mcg (2,000 unit) capsule 50 mcg PO DAILY Acidophilus Tablet,Chewable 1 tab PO DAILY Bioflex [id number] mg tablet 1 tab PO DAILY Cheryl 1 ea PO DAILY Patient Comments: Apple Cider Vinegar Chew amoxicillin 500 mg capsule 2,000 mg PO ONCE Qty: 4 3RF Rx Instructions: Take 4 capsules 1 hour prior to dental procedure Follow Up/Referrals: Provider,Not a Local [Non-Staff] - Stand Alone Forms: [employer] Info Instructions
--- NOTE | 2024-01-15 12:51 | CRLHL7_ITS ---
For Patients: As a result of the Century Cures Act, medical imaging exams and procedure reports are released immediately into your electronic medical record. You may view this report before your referring provider. If you have questions, please contact your health care provider. Indication: LEFT SIDED PNEUMONIA, PAIN Technique: CT of the chest, abdomen, and pelvis was obtained with 96 mL of Isovue 370 intravenous contrast. Please note that all CT scans at this facility use dose modulation, iterative reconstruction, and/or weight-based dosing when appropriate to reduce radiation dose to as low as reasonably achievable. Comparison: 04/17/2022 Findings: CHEST: Medical devices: None. Thyroid: Multinodular thyroid. 2.0 centimeter left thyroid nodule (2/6). Lymph nodes: No supraclavicular, axillary, mediastinal, or hilar lymphadenopathy. Vasculature: Mildly enlarged main pulmonary artery measuring 3.1 centimeter in diameter (2/46). Mildly ectatic ascending thoracic aorta measuring 4.2 centimeter (2/46). Aberrant right subclavian artery. Heart: Mild coronary artery calcification. No pericardial effusion. Other mediastinal structures: Small hiatal hernia. Lung parenchyma and pleura: 3 millimeter right upper lobe pulmonary nodule (4/15). 3 millimeter right lower lobe pulmonary nodule (4/60). Redemonstration of 6 millimeter subpleural left lower lobe pulmonary nodule (4/81). Moderate patchy left upper lobe airspace opacities. Airways: No significant abnormality. Chest wall: No significant abnormality. ABDOMEN/PELVIS: Liver and biliary tree: Subcentimeter hypoattenuating lesions are too small to characterize and are favored to represent cysts. Gallbladder: Status post cholecystectomy. Spleen: Normal. Pancreas: Mild fatty atrophy. Adrenal glands: Normal. Kidneys and ureters: No hydronephrosis. No obstructing renal calculi. Redemonstration of subcentimeter partially calcified exophytic right renal lesion (1/66), which is too small to characterize. Gastrointestinal tract: Mild descending and sigmoid colonic diverticulosis without CT evidence of acute diverticulitis. Small to moderate stool burden. No evidence of acute appendicitis. No evidence of bowel obstruction. Peritoneal cavity: Normal. Bladder: Normal. Pelvic organs: Status post hysterectomy. Vasculature: Mild calcification. Lymph nodes: Normal. Abdominal wall: Moderate fat containing supraumbilical ventral hernia. Ill-defined expansile hyperattenuation within the left rectus muscle measuring 4.4 x 2.6 x 3.7 centimeter (59, ) with mild surrounding fat stranding. Small fat containing right inguinal hernia. Musculoskeletal: Mild degenerative changes of the bilateral hips. Moderate degenerative changes of the visualized spine. Impression: 1. Moderate patchy left upper lobe airspace opacities are compatible with infection. 2. Ill-defined expansile hyperattenuation within the left rectus muscle measuring 4.4 x 2.6 x 3.7 centimeter with mild surrounding fat stranding. This is favored to represent a hematoma versus less likely solid lesion; consider correlation with history of trauma. 3. Right-sided pulmonary nodules measuring up to 3 millimeter. Consensus guidelines for single or multiple solid lung nodules less than 6 mm, not applicable if known malignancy or immunocompromise: Low risk: No routine follow-up. High risk AND nodule(s) with suspicious morphology OR in upper lobe: Strongly consider CT at 12 months. (Bogdan, et al. Radiology 2017) 4. 2.0 centimeter left thyroid nodule. Recommend further evaluation with ultrasound for a thyroid nodule measuring <= 1.5 cm in a patient <= 35 years of age, as is appropriate taking into consideration the patient???s comorbidities and life expectancy. Adapted from Consensus Recommendations, J Am Pedro Radiol 2015;12:143???150. 5. Mildly enlarged main pulmonary artery, which may be seen in the setting of pulmonary hypertension. 6. Mildly ectatic ascending thoracic aorta measuring 4.2 centimeter. Please note that all CT scans at this facility use dose modulation, iterative reconstruction, and/or weight-based dosing when appropriate to reduce radiation dose to as low as reasonably achievable. Dictated by Jose Peña MD @ 01/15/2024 3:48:22 PM (Electronically Signed)
--- OUTSIDE RECORDS SUMMARY | 2024-01-15 13:19 | XMS_ITS | Patient Health Record ---
[facility] Address [address] [place] [id number] Care Team Providers Care Digital Media Planner Name Role Phone KATIE NORRIS Unavailable [phone] GUY THAPA Unavailable [phone] Allergies No Known Allergies Reason For Referral No Information Medications Medication SIG (Take, Route, Frequency, Duration) Notes Start Date End Date Status Vitamin B Complex - as directed Orally Active Alendronate Sodium 70 MG 1 tablet Orally Active Apple Cider Vinegar 500 MG as directed Orally Active Vitamin C 1000 MG 1 tablet Orally Once a day Active Metamucil 48.57 % as directed Orally Active Fish Oil 1000 MG 2 capsule Orally Onc e a day Active Turmeric 500 MG as directed Orally Active Warfarin Sodium 6 MG 1 tablet Orally Onc e a day Active Losartan Potassium 25 MG 1 tablet Orally Once a day Active Vitamins/Minerals Ac tive Osteo Bi-Flex Regular Strength Active Probiotic 250 MG as directed Orally Active Vitamin D3 25 MCG (1000 UT) 1 capsule Or ally Once a day Active Multi Vitamin - 1 tablet Orally Once a day Active Social History Tobacco Use: Social History Observation Description Date Details (start date - stop date) Never Smoker NA - NA Tobacco Use/Smoking Question Answer Notes Are you a nonsmoker Problems Problem Type SNOMED Code ICD Code Onset Dates Problem Status W/U Status Risk Notes Problem 279995498 Primary osteoarthritis of right knee (M17.11) Active confirmed Problem 631799138 Primary osteoarthritis of left knee (M17.12) Active confirmed Problem 908630459 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) Active confirmed Problem 299162778 Femoral neuritis (G57.20) Active confirmed Problem 518203408 Neuritis of left saphenous nerve (G57.82) Active confirmed Problem 947337795 Neuritis of righ t saphenous nerve (G57.81) Active confirmed Problem 9857897994533856 Primary osteoarthritis of left foot (M19.072) Active confirmed Problem 442552738 Osteoarthritis o f joint of toe of left foot (M19.072) Active confirmed Problem 717004893 Primary osteoarthritis of knees, bilateral (M17.0) Active confirmed Problem 363527062 Osteoarthritis o f unspecified knee (M17.9) Active confirmed Problem 684961961 Osteoarthritis o f unspecified knee (M17.9) Active confirmed Problem 711750579 Factor V Leiden (D68.51) Active confirmed Problem 715094845 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) Active confirmed Problem 55085692 Hypertension, unspecified type (I10) Active confirmed Problem 860327439 Neuritis of righ t lower extremity (G57.91) Active confirmed Problem 210891429 Neuritis of left lower extremity (G57.92) Active confirmed Problem 288012915 Arthritis, 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) Active confirmed Vital Signs Temperature 98.1 degrees Fahrenheit 10/19/2023 Blood pressure diastolic 86 mm Hg 10/19/2023 Height 66 in 10/19/2023 Blood pressure systolic 110 mm Hg 10/19/2023 Encounters Encounter Location Date Provider Diagnosis Caren Garces [address] [place] [address] [place] [phone] 07/20/2023 KATIE MEHDI Primary osteoarthrit is of left knee M17.12 and Pes anserine bursitis M70.50 Caren Garces [address] [place] [address] [place] [phone] 07/27/2023 KATIE MEHDI Primary osteoarthrit is of left knee M17.12 and Pes anserine bursitis M70.50 Caren Garces [address] [place] [address] [place] [phone] 08/16/2023 KATIE MEHDI Primary osteoarthrit is of left knee M17.12 ; Left knee pain M25.562 and Pes anserinus bursitis of left knee M70.52 [facility] [address] [facility] [place] [address] [place] [phone] 09/06/2023 KATIE NORRIS Left knee pain M25.5 62 ; Primary osteoarthritis of left knee M17.12 and Pes anserinus bursitis of left knee M70.52 [facility] [address] [facility] [place] [address] [place] [phone] 10/19/2023 KATIE NORRIS Left knee pain M25.5 62 ; Primary osteoarthritis of left knee M17.12 ; Pes anserinus bursitis of left knee M70.52 and Femoral neuritis G57.20 Assessments Encounter Date Diagnosis (ICD Code) Assessment Notes Treatment Notes Treatment Clinical Notes 07/20/2023 Primary osteoarthritis of left knee (ICD-10 - M17.12) 07/27/2023 Primary osteoarthritis of left knee (ICD-10 - M17.12) Treatment options discussed with patient and all of their questions were answered at this time. Based on review of patient's history, exam and discussion with the patient Gelsyn LAWTON injection is recommended and performed today 08/16/2023 Left knee pain (ICD-10 - M25.562) 08/16/2023 Primary osteoarthritis of left knee (ICD-10 - M17.12) Treatment options discussed with patient and all of their questions were answered at this time. Based on review of patient's history, exam and discussion with the patient, her next LAWTON injection is recommended to be deferred and instead perform a pes anserine bursa injection due to the severe pain from the bursitis. We will reschedule her next LAWTON whit. 09/06/2023 Left knee pain (ICD-10 - M25.562) 10/19/2023 Left knee pain (ICD-10 - M25.562) 10/19/2023 Primary osteoarthritis of left knee (ICD-10 - M17.12) Treatment options discussed with the patient and all of their questions were answered at this time. Based on review of their response to previous treatments, exam and discussion with the patient, ultrasound guided nerve injections are recommended and performed today 10/19/2023 Pes anserinus bursitis of left knee (ICD-10 - M70.52) 09/06/2023 Primary osteoarthritis of left knee (ICD-10 - M17.12) Treatment options discussed with patient and all of their questions were answered at this time. Based on review of patient's history, exam, and discussion with the patient Hyaluronic Acid injection recommended to help with pain and increase motion and improve functional movements 08/16/2023 Pes anserinus bursitis of left knee (ICD-10 - M70.52) - Due to patient's symptoms and physical examination of pain, a bursal injection will be performed for both diagnostic and therapeutic effects; this will enable us to isolate the specific cause of the patient's pain. Based on patient's response and confirmation of pain caused by the bursa, future treatments may be needed to improve function and quality of life 07/27/2023 Pes anserine bursitis (ICD-10 - M70.50) 07/20/2023 Pes anserine bursitis (ICD-10 - M70.50) 09/06/2023 Pes anserinus bursitis of left knee (ICD-10 - M70.52) 10/19/2023 Femoral neuritis (ICD-10 - G57.20) 07/20/2023 Other Treatment opti ons discussed with patient and all of their questions were answered at this time. Based on review of patient's history, exam and discussion with the patient, LAWTON injection was recommended and completed during today's visit. 07/27/2023 Other Documentation was performed by Jen Stanton CMA under direct supervision Betty Norris MD Plan Of Treatment Pending Test Test Name Order Date MR Femur WO Unilat 02/09/2018 MR Hamstring WO 02/08/2018 XR Foot 2V 09/15/2019 XR Foot 2V 02/16/2021 XR Foot 2V 03/25/2021 Insurance Providers Payer Name Payer Address Payer Phone Subscriber Number Group Number Insured Name Patient Relationship to Insured Coverage Start Date Coverage End Date [employer] - Medicare Supplement [address] [address] [place], [place] [id number] Dayana Hein Self - patient is the insured MEDICARE PART B [address] [place], [place] [id number] Dayana Hein Self - patient is the insured MEDICARE PART B [address] [place], [place] [id number] Dayana Hein Self - patient is the insured Medical (General) History Medical History History 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
--- OUTSIDE RECORDS SUMMARY | 2024-01-15 13:19 | XMS_ITS ---
Author Organization [facility] Address [address] [place] [address] Care Team Providers Care Wedding Planning Internship Name Role Phone KATIE NORRIS Unavailable [phone] AMANDA YUAN Unavailable [phone] Allergies No Known Allergies REASON FOR VISIT Bilateral Knee pain Medications Medication SIG (Take, Route, Frequency, Duration) Notes Start Date End Date Status Apple Cider Vinegar 500 MG as directed Orally Active Vitamin C 1000 MG 1 tablet Orally Once a day Active Metamucil 48.57 % as directed Orally Active Vitamin B Complex - as directed Orally Active Losartan Potassium 25 MG 1 tablet Orally Once a day Active Alendronate Sodium 70 MG 1 tablet Orally Active Fish Oil 1000 MG 2 capsule Orally Onc e a day Active Turmeric 500 MG as directed Orally Active Warfarin Sodium 6 MG 1 tablet Orally Onc e a day Active Vitamins/Minerals Ac tive Osteo Bi-Flex Regular Strength Active Probiotic 250 MG as directed Orally Active Vitamin D3 25 MCG (1000 UT) 1 capsule Or ally Once a day Active Multi Vitamin - 1 tablet Orally Once a day Active Vital Signs Temperature 98.1 degrees Fahrenheit 10/19/19 24 Blood pressure systolic 110 mm Hg 10/19/19 24 Blood pressure diastolic 86 mm Hg 024 Height 66 in 10/19/2023 Encounters Encounter Location Date Provider Diagnosis [facility] [address] [facility] [place] [address] [place] [phone] 10/19/2023 KATIE NORRIS Left knee pain M25.5 62 ; Primary osteoarthritis of left knee M17.12 ; Pes anserinus bursitis of left knee M70.52 and Femoral neuritis G57.20 Assessments Encounter Date Diagnosis (ICD Code) Assessment Notes Treat ment Notes Treatment Clinical Notes 10/19/2023 Left knee pain (ICD-10 - M25.562) [...] M70.52) 10/19/2023 Femoral neuritis (ICD-10 - G57.20) Plan Of Treatment Treatment Notes Assessment Notes Primary osteoarthritis of left knee Lore tment options discussed with the patient and all of their questions were answered at this time. Based on review of their response to previous treatments, exam and discussion with the patient, ultrasound guided nerve injections are recommended and performed today Procedure Notes * Category Sub-Category Detail Notes Ultrasound Guided Nerve Block Procedure: Ul trasound guided neural blockade of bilateral saphenous branch of the femoral nerve Procedure Indication: The patient is a [age] year old, female, who presents to the clinic today for the treatment of persistent pain., The patient has been exhibiting symptoms consistent with a neuralgic pain syndrome involving the nerves mentioned above. Symptoms have been severe, disabling and refractory to conservative care. The patient has been evaluated in the clinic for a therapeutic neural blockade of the nerves suspected of causing pain., Ultrasound guidance is being used because of the necessity for precise placement of the needle and risk of vascular and/or neural injury., US image was captured during todays procedure and saved Informed Consent: The risks, benefits, potential complications, and alternatives were discussed with the patient as per the signed consent form, and informed consent was obtained. The patient has received information about the procedure and its risks. The physician personally confirmed the procedure, side, and site to be injected with the patient in the procedure area Procedure Description: After informed co nsent, the patient was placed in the supine position. A duplex ultrasound examination was performed byKatie M.D. The nerve was identified and marked. The region was prepped in the usual sterile fashion with hibiclens/alcohol solution. I raised a skin wheal and then under ultrasound guidance I passed a block needle through the skin wheal and downward between the fascia of the muscles in the vicinity of the nerve. I then injected the active medication with noticeable separation of the fascial planes., I then used lidocaine 1% to anesthetize the skin and the entry point for injection, I used a 25ga. 2 in and 27ga 1 1/4 in. needle for this procedure. Needle insertion was atraumatic. I injected a total of 25 cc of the injectate, per side. The injectate consisted of, 5% Dextrose, 1% lidocaine, and Betamethasone. This process was repeated on the opposite side to complete bilateral injection treatments Education: Patient was educated on post injection flare as well as signs of infection to watch for. Patient should return to clinic if any of these signs or symptoms appear. Likewise, follow up if the condition does not resolve or improve with current treatment Complications: No immediate complic ations occurred Pre Procedure Pain: 9/10 at worst Post Procedure Pain: Patient will contin ue to monitor -Pre Procedure Time Out A timeout was pe rformed by, Lou Stanton, prior to the start of patient's procedure today. Confirmed patient's first and last name, date of , procedure, and procedure site., Patient had no further questions at this time Progress Notes * Dayana MILNERDOB:[birth year] (73 yo F)Acc No.[id number]:10/19/2023 Patient:?Dayana MILNER Provider:?KATIE NORRIS MD :[id number]???Age:73 Y???Sex:Female D ate:10/19/2023 [facility] [place] [id number] Subjective: * Chief Complaints: * ???Bilateral Knee pain * HPI: ???--Patient Information:?Patient is a?73 year old female who presents today for treatment of bilateral knee pain.?-Follow up Visit:?Patient was initially evaluated for?bilateral knee pain on 03/23/[address] Amanda uYan.?At their last appointment on ?09/06/2023 patient had left knee Gelsyn injection, #3.?Since their last visit?Patient reports the outer area of the left knee is doing good but recently is experiencing more medial pain on both knees. Left knee is worse than the right. Pain runs from the knee down the legs and is struggling to go down the stairs. Not so much going up.?Patient continues to have?consistent pain on left knee, intermittent pain on right.?Patient no longer has?as severe pain on out side of left knee.?Based on Visual Analog Scale, the patient rates their pain?9/10 at worst today compared to 3/10 prior to this treatment on 09/06/2023. Pain is intermittently severe and impairs their ability to function.? * Medical History:? * Surgical History:?gallbladde r removal 1986LapBand 2001Hysterectomy 1995left meniscus repair 2015right meniscus repair 2013SVT repaired 2014Right knee replacement 02/2018 * Hospitalization/Major Diagno stic Procedure:?see surgical history * Family History:?Mother: canc er.?Father: diagnosed with Heart Disease.? * Medications:?TakingLosartan Potassium 25 MG Tablet 1 tablet Orally Once a day Vitamin B Complex - Tablet as directed Orally Apple Cider Vinegar 500 MG Tablet as directed Orally Metamucil 48.57 % Powder as directed Orally Osteo Bi-Flex Regular Strength Probiotic 250 MG Capsule as directed Orally Vitamin D3 25 MCG (1000 UT) Capsule 1 capsule Orally Once a day Multi Vitamin - Tablet 1 tablet Orally Once a day Fish Oil 1000 MG Capsule 2 capsule Orally Once a day Turmeric 500 MG Capsule as directed Orally Warfarin Sodium 6 MG Tablet 1 tablet Orally Once a day Vitamins/Minerals Alendronate Sodium 70 MG Tablet 1 tablet Orally Vitamin C 1000 MG Tablet 1 tablet Orally Once a day Medication List reviewed and reconciled with the patientTaking Losartan Potassium 25 MG Tablet 1 tablet Orally Once a day Taking Vitamin B Complex - Tablet as directed Orally Taking Apple Cider Vinegar 500 MG Tablet as directed Orally Taking Metamucil 48.57 % Powder as directed Orally Taking Osteo Bi-Flex Regular Strength Taking Probiotic 250 MG Capsule as directed Orally Taking Vitamin D3 25 MCG (1000 UT) Capsule 1 capsule Orally Once a day Taking Multi Vitamin - Tablet 1 tablet Orally Once a day Taking Fish Oil 1000 MG Capsule 2 capsule Orally Once a day Taking Turmeric 500 MG Capsule as directed Orally Taking Warfarin Sodium 6 MG Tablet 1 tablet Orally Once a day Taking Vitamins/Minerals Taking Alendronate Sodium 70 MG Tablet 1 tablet Orally Taking Vitamin C 1000 MG Tablet 1 tablet Orally Once a day Medication List reviewed and reconciled with the patient * Allergies:?N.K.D.A.no[Allerg ies Verified] Objective: * Vitals:?Temp:98.1F, BP:110/8 6mm Hg, Ht: 66 in. * Examination: ???Knee/helms exam: ?Inspection?General: no acute distress Psych: appropriate mood and affect .?Palpation:?Tenderness over the saphenous branch of the femoral nerve bilaterally.? Assessment: * Assessment: 1.?Left knee pain - M25.562? 2.?Primary osteoarthritis of left knee - M17.12 (Primary)?3.?Pes anserinus bursitis of left knee - M70.52?4.?Femoral neuritis - G57.20? Plan: * Treatment: * Procedures:?Ultrasound Guided Nerve Block:?Procedure:?Ultrasound guided neural blockade of bilateral saphenous branch of the femoral nerve.?Procedure Indication:?The patient is a 73 year old, female, who presents to the clinic today for the treatment of persistent pain., The patient has been exhibiting symptoms consistent with a neuralgic pain syndrome involving the nerves mentioned above. Symptoms have been severe, disabling and refractory to conservative care. The patient has been evaluated in the clinic for a therapeutic neural blockade of the nerves suspected of causing pain., Ultrasound guidance is being used because of the necessity for precise placement of the needle and risk of vascular and/or neural injury., US image was captured during todays procedure and saved.?Informed Consent:?The risks, benefits, potential complications, and alternatives were discussed with the patient as per the signed consent form, and informed consent was obtained. The patient has received information about the procedure and its risks. The physician personally confirmed the procedure, side, and site to be injected with the patient in the procedure area.?Procedure Description:?After informed consent, the patient was placed in the supine position. A duplex ultrasound examination was performed by, Katie Norris M.D. The nerve was identified and marked. The region was prepped in the usual sterile fashion with hibiclens/alcohol solution. I raised a skin wheal and then under ultrasound guidance I passed a block needle through the skin wheal and downward between the fascia of the muscles in the vicinity of the nerve. I then injected the active medication with noticeable separation of the fascial planes., I then used lidocaine 1% to anesthetize the skin and the entry point for injection, I used a 25ga. 2 in and 27ga 1 1/4 in. needle for this procedure. Needle insertion was atraumatic. I injected a total of 25 cc of the injectate, per side. The injectate consisted of, 5% Dextrose, 1% lidocaine, and Betamethasone. This process was repeated on the opposite side to complete bilateral injection treatments.?Education:?Patient was educated on post injection flare as well as signs of infection to watch for. Patient should return to clinic if any of these signs or symptoms appear. Likewise, follow up if the condition does not resolve or improve with current treatment.?Complications:?No immediate complications occurred.?Pre Procedure Pain:?9/10 at worst.?Post Procedure Pain:?Patient will continue to monitor.?-Pre Procedure:?Time Out?A timeout was performed by, Lou tSanton, prior to the start of patient's procedure today. Confirmed patient's first and last name, date of , procedure, and procedure site., Patient had no further questions at this time.? * Procedure Codes:?92348 N blo ck inj fem single, Modifiers: 50 * * Sign off status: Completed true * Provider:?KATIE NORRIS MD Date:?10/18 Generated for Krysta rooney/Ela/eTkodysmitting on:?01/15/2024 01:18 PM CDT History and Physical Notes * HPI (History of Present Illness) Category Sub-Category Detail Notes -Follow up Visit Additonal information Treatment plan as of last visit: - - - - - - - Patient was initially evaluated for bila teral knee pain on 03/23/[address] Amanda Yuan At their last appointment on 09/06/2023 patient had left knee Gelsyn injection, #3 Since their last visit Patient reports t he outer area of the left knee is doing good but recently is experiencing more medial pain on both knees. Left knee is worse than the right. Pain runs from the knee down the legs and is struggling to go down the stairs. Not so much going up Patient continues to have consistent adriana n on left knee, intermittent pain on right Based on Visual Analog Scale , the patient rates their pain 9/10 at worst today compared to 3/10 mando or to this treatment on 09/06/2023. Pain is intermittently severe and impairs their ability to function - Patient no longer has as severe pain on out side of left knee Work restrictions Additional treatments - - --Patient Information Patient is a 73 year ol d female who presents today for treatment of bilateral knee pain Preoperative evaluation questions Patient info Examination Category Sub-Category Detail Notes Knee/helms exam Inspection General: no acut e distress Psych: appropriate mood and affect Palpation: Tenderness over the saphenous branch of the femoral nerve bilaterally
[2024-01-15 13:22] LABS: HCO3 VBG 29 mmol/L (21-28); PCO2 VBG 46 mmHG (40-50); PO2 VBG < 30.1 mmHG (25-47); pH VBG 7.417 (7.32-7.43)
[2024-01-15 13:30] LABS: Basophils Absolute Auto 0.02 K/uL (0.00-0.30); Basophils Percent Auto 0.3 % (0.0-3.0); Eosinophils Percent Auto 1.6 % (0.0-7.0); Hematocrit 39.6 % (33.0-51.0); Hemoglobin* 13.2 gm/dL (12.0-16.0); Immature Granulocytes Abs Auto 0.01 K/uL (0.00-0.30); Immature Granulocytes Pct Auto 0.2 %; Lymphocytes Absolute Auto 1.44 K/uL (0.90-2.90); Lymphocytes Percent Auto 22.9 % (20-44); Mean Corpuscular HGB Conc 33 gm/dL (32-36); Mean Corpuscular Hemoglobin 30 pg (26-34); Mean Corpuscular Volume 89 fL (80-100); Monocytes Percent Auto 9.8 % (0.0-11.0); Neutrophils Absolute Auto 4.11 K/uL (1.7-7.0); Neutrophils Percent Auto 65.2 % (42.0-72.0); Platelet Count* 200 K/uL (140-440); RDW Coefficient of Variation % 12.1 % (11.5-15.5); Red Blood Count 4.45 m/uL (4.00-5.20)
[2024-01-15 13:31] LABS: Slide Review Reflex No
[2024-01-15 13:41] LABS: INR 2.96 (0.91-1.10); Prothrombin Time 33.1 Seconds
[2024-01-15 13:43] LABS: Chloride* 102 mmol/L (96-114); Potassium* 4.2 mmol/L (3.6-5.1); Sodium* 136 mmol/L (135-149)
[2024-01-15] MEDS: 0.9 % SODIUM CHLORIDE 1000 ml 1,000 ML IV (13:44)
[2024-01-15] MEDS: LIDOCAINE 5% PATCH 1 PATCH TRANSDERMA (13:45)
[2024-01-15 13:46] LABS: Blood Urea Nitrogen* 14 mg/dL (7-30); Creatinine* 0.5 mg/dL (0.5-1.5); Est. Creatinine Clearance* 43.74; Estimated Glomerular Filt Rate 98 ml/min; Glucose* 89 mg/dL (60-115)
[2024-01-15] MEDS: MORPHINE 2 MG/ML inj IVP (13:46)
[2024-01-15 13:47] LABS: Calcium* 9.3 mg/dL (8.4-10.6)
[2024-01-15 13:49] LABS: C Reactive Protein* 0.8 mg/dL (0.5-1.0)
[2024-01-15 14:02] LABS: Anion Gap 7 mEq/L (7-15); Carbon Dioxide* 27 mmol/L (20-32)
[2024-01-15 15:58] LABS: D Dimer Quantitative* < 0.27 ug/ml (0.00-0.50)
== END 2024-01-15 16:33 | disposition home or self-care (01) ==
PROVIDERS: Emergency Provider Family Medicine; PCP Family Medicine
DX: J18.9 Pneumonia, unspecified organism (principal); M79.81 Nontraumatic hematoma of soft tissue; R05.9 Cough, unspecified
CPT/HCPCS: 36415; 71260; 74177; 80048; 82803; 85025; 85379; 85610; 86140; 93005; 94761; 96361; 96374; 99284; 99285; A9270; J2270; J7030; Q9967

== ENCOUNTER 2025-03-11 22:01 | Emergency (ER) | payer MEDICARE, SELFPAY ==
--- OUTSIDE RECORDS SUMMARY | 2024-07-23 08:30 | XMS_ITS ---
Author Organization [facility], Joe Address [address] [place] [address] Care Team Providers Care Storage Battery Charger Name Role Phone KATIE NORRIS Unavailable [phone] GUY THAPA Unavailable [phone] REASON FOR VISIT Left Knee Medications Medication SIG (Take, Route, Frequency, Duration) Notes Start Date End Date Status Turmeric 500 MG as directed Orally Unknown Vitamins/Minerals Un known Warfarin Sodium 6 MG 1 tablet Orally Onc e a day Unknown Vitamin C 1000 MG 1 tablet Orally Once a day Unknown Alendronate Sodium 70 MG 1 tablet Orally Unknown Probiotic 250 MG as directed Orally Unknown Osteo Bi-Flex Regular Strength Unknown Multi Vitamin - 1 tablet Orally Once a day Unknown Vitamin D3 25 MCG (1000 UT) 1 capsule Orally Once a day Unknown Fish Oil 1000 MG 2 capsule Orally Onc e a day Unknown Losartan Potassium 25 MG 1 tablet Orally Once a day Unknown Amoxicillin Unknown Apple Cider Vinegar 500 MG as directed Orally Unknown Vitamin B Complex - as directed Orally Unknown Metamucil 48.57 % as directed Orally Unknown Encounters Encounter Location Date Provider Diagnosis [facility] [address] [facility] [address] [place] [address] 07/23/2024 KATIE NORRIS Left knee pain M25.5 62 ; Primary osteoarthritis of left knee M17.12 ; Pes anserinus bursitis of left knee M70.52 ; Femoral neuritis G57.20 and IT band syndrome, left M76.32 Assessments Encounter Date Diagnosis (ICD Code) Assessment Notes Treatment Notes Treatment Clinical Notes Section Notes 07/23/2024 Left knee pain (ICD-10 - M25.562) 07/23/2024 Primary osteoarthritis of left knee (ICD-10 - M17.12) Here at [facility] we use our CFAN model to Restore the body to a healthier state, then rebuild the degenerative tissues, while removing the need for unwanted surgeries. CFAN stands for: Cell Health, Functional Movement, Articulation & Nerve Health. Below are the recommended treatments to help you optimize your health. Treatment options discussed with the patient and all of their questions were answered at this time. Based on review of their response to previous treatments, exam and discussion with the patient, recommended and performed today Documentation was performed by under direct supervision Betty Norris MD 07/23/2024 Pes anserinus bursitis of left knee (ICD-10 - M70.52) 07/23/2024 Femoral neuritis (ICD-10 - G57.20) 07/23/2024 IT band syndrome, left (ICD-10 - M76.32) Plan Of Treatment Treatment Notes Assessment Notes Primary osteoarthritis of left knee Here at [facility] we use our CFAN model to Restore the body to a healthier state, then rebuild the degenerative tissues, while removing the need for unwanted surgeries. CFAN stands for: Cell Health, Functional Movement, Articulation & Nerve Health. Below are the recommended treatments to help you optimize your health. Treatment options discussed with the patient and all of their questions were answered at this time. Based on review of their response to previous treatments, exam and discussion with the patient, recommended and performed today Procedure Notes * Category Sub-Category Detail Notes Ultrasound Guided Nerve Block Procedure: __ Procedure Indication: __ Informed Consent: The risks, benefits, potential complications, and alternatives were discussed with the patient as per the signed consent form, and informed consent was obtained. The patient has received information about the procedure and its risks. The physician personally confirmed the procedure, side, and site to be injected with the patient in the procedure area Procedure Description: ___ Education: Patient was educated on post injection flare as well as signs of infection to watch for. Patient should return to clinic if any of these signs or symptoms appear. Likewise, follow up if the condition does not resolve or improve with current treatment Complications: No immediate complic ations occurred Pre Procedure Pain: ___ Post Procedure Pain: ___ -Pre Procedure Time Out A timeout was pe rformed by , prior to the start of patient's procedure today. Confirmed patient's first and last name, date of , procedure, and procedure site., Patient had no further questions at this time Progress Notes * Dayana MILNERDOB:[birth year] (75 yo F)Acc No.[id number]:07/23/2024 Patient: Dayana GUO Provider: Kam NORRIS MD :1950 A ge:74 Y S ex:Female Date:07/23/2024 [facility] [address] [id number] Subjective: * Chief Complaints: * 1 . Left Knee. * HPI: - -Patient Information: Patient is a [age] year old female who presents today for evaluation of knee pain. - Follow up Visit: Patient was initially evaluated for patient was first evaluated for knee pain.. At their last appointment on 0 06/05/24 patient had Trigger point injections of left IT band, and U ltrasound guided neural blockade of bilateral saphenous branch of the femoral nerve(s) .. Since their last visit P atient reports. Patient continues to have A dull achy pain that is always there and is tender to palpation. Based on Visual Analog Scale, the patient rates their pain * /10 today. Pain is intermittently severe and impairs their ability to function. * Medical History: 1 /2 mutation Factor V Leiden, Blood clot in leg. * Surgical History: g allbladder removal 1985, LapBand 2000, Hysterectomy 1994, left meniscus repair 2015, right meniscus repair 2012, SVT repaired 2013, Right knee replacement 02/2018. * Hospitalization/Major Diagno stic Procedure: s ee surgical history . * Family History: M other: cancer. F ather: diagnosed with Heart Disease. * Medications: U nknown Amoxicillin , Unknown Losartan Potassium 25 MG Tablet 1 tablet Orally Once a day , Unknown Vitamin B Complex - Tablet as directed Orally , Unknown Apple Cider Vinegar 500 MG Tablet as directed Orally , Unknown Metamucil 48.57 % Powder as directed Orally , Unknown Osteo Bi-Flex Regular Strength , Unknown Probiotic 250 MG Capsule as directed Orally , Unknown Vitamin D3 25 MCG (1000 UT) Capsule 1 capsule Orally Once a day , Unknown Multi Vitamin - Tablet 1 tablet Orally Once a day , Unknown Fish Oil 1000 MG Capsule 2 capsule Orally Once a day , Unknown Turmeric 500 MG Capsule as directed Orally , Unknown Warfarin Sodium 6 MG Tablet 1 tablet Orally Once a day , Unknown Vitamins/Minerals , Unknown Alendronate Sodium 70 MG Tablet 1 tablet Orally , Unknown Vitamin C 1000 MG Tablet 1 tablet Orally Once a day Objective: * Vitals: Assessment: * Assessment: 1. L eft knee pain - M25.562 2 . P rimary osteoarthritis of left knee - M17.12 (Primary) 3 . P es anserinus bursitis of left knee - M70.52 4 . F emoral neuritis - G57.20 5 . I T band syndrome, left - M76.32 ? Plan: * Treatment: * Procedures: U ltrasound Guided Nerve Block: Procedure: _ _. Procedure Indication: _ _. Informed Consent: T he risks, benefits, potential complications, and alternatives were discussed with the patient as per the signed consent form, and informed consent was obtained. The patient has received information about the procedure and its risks. The physician personally confirmed the procedure, side, and site to be injected with the patient in the procedure area. Procedure Description: _ __. Education: P karolina was educated on post injection flare as well as signs of infection to watch for. Patient should return to clinic if any of these signs or symptoms appear. Likewise, follow up if the condition does not resolve or improve with current treatment. Complications: N o immediate complications occurred. Pre Procedure Pain: _ __. Post Procedure Pain: _ __. - Pre Procedure: Time Out A timeout was performed by , prior to the start of patient's procedure today. Confirmed patient's first and last name, date of , procedure, and procedure site., Patient had no further questions at this time. * * Electronic signature of RICHIE NORRIS MD on 03/11/2025 at 10:03 PM FIRE TRUCK DRIVER Sign off status: Pending * Provider: Kam NORRIS MD Date: 0 07/23/2024 Generated for Krysta rooney/Ela/Gala on: 05/11/2024 10:03 PM FIRE TRUCK DRIVER History and Physical Notes * HPI (History of Present Illness) Category Sub-Category Detail Notes Category Not es -Follow up Visit Patient was initiall y evaluated for 09/01/2019 patient was first evaluated for knee pain. At their last appointment on 06/05/24 pa vangie had Trigger point injections of left IT band, and Ultrasound guided neural blockade of bilateral saphenous branch of the femoral nerve(s) . Since their last visit Patient reports * Patient continues to have A dull achy pa in that is always there and is tender to palpation Based on Visual Analog Scale , the patient rates their pain /10 today. Pain is intermittently sev ere and impairs their ability to function --Patient Information Patient is a 74 year ol d female who presents today for evaluation of knee pain
--- OUTSIDE RECORDS SUMMARY | 2024-07-23 08:30 | XMS_ITS ---
Author Organization [facility], Joe Address [address] [place] [address] Care Team Providers Care Hvac Project Manager Name Role Phone KATIE NORRIS Unavailable [phone] GUY THAPA Unavailable [phone] REASON FOR VISIT Left Knee Medications Medication [...] Location Date Provider Diagnosis [facility] [address] [facility] [address] [place] [address] 07/23/2024 KATIE NORRIS Left knee pain M25.5 [...] left knee (ICD-10 - M17.12) Here at [facility] we use our CFAN model to Restore [...] Primary osteoarthritis of left knee Here at [facility] we use our CFAN model to Restore [...] * Dayana MILNERDOB:[birth year] (75 yo F)Acc No.[id number]:07/23/2024 Patient: Dayana GUO Provider: Kam NORRIS MD :1950 A ge:74 Y S ex:Female Date:07/23/2024 [id number] Subjective: * Chief Complaints: * 1 . [...] of RICHIE NORRIS MD on 03/11/2025 at 11:37 PM SUPERVISOR SKI PRODUCTION Sign off status: Pending * Provider: Kam NORRIS MD Date: 0 07/23/2024 Generated for Krysta rooney/Ela/Gala on: 05/11/2024 11:37 PM SUPERVISOR SKI PRODUCTION History and Physical Notes * HPI (History [...]
--- OUTSIDE RECORDS SUMMARY | 2024-07-31 08:00 | XMS_ITS ---
Author Organization [facility], Joe Address [address] [place] [address] Care Team Providers Care Sanitary Napkin Machine Tender Name Role Phone KATIE NORRIS Unavailable [phone] GUY THAPA Unavailable [phone] REASON FOR VISIT Left Knee Medications Medication SIG (Take, Route, Frequency, Duration) Notes Start Date End Date Status Losartan Potassium 25 MG 1 tablet Orally Once a day Unknown Amoxicillin Unknown Metamucil 48.57 % as directed Orally Unknown Apple Cider Vinegar 500 MG as directed Orally Unknown Vitamin B Complex - as directed Orally Unknown Alendronate Sodium 70 MG 1 tablet Orally Unknown Vitamins/Minerals Un known Warfarin Sodium 6 MG 1 tablet Orally Onc e a day Unknown Turmeric 500 MG as directed Orally Unknown Vitamin C 1000 MG 1 tablet Orally Once a day Unknown Osteo Bi-Flex Regular Strength Unknown Fish Oil 1000 MG 2 capsule Orally Onc e a day Unknown Multi Vitamin - 1 tablet Orally Once a day Unknown Vitamin D3 25 MCG (1000 UT) 1 capsule Orally Once a day Unknown Probiotic 250 MG as directed Orally Unknown Encounters Encounter Location Date Provider Diagnosis Ca[facility] [address] [facility] [address] [place] [address] 07/31/2024 KATIE NORRIS Left knee pain M25.5 62 ; Primary osteoarthritis of left knee M17.12 and Pes anserinus bursitis of left knee M70.52 Assessments Encounter Date Diagnosis (ICD Code) Assessment Notes Treatment Notes Treatment Clinical Notes Section Notes 07/31/2024 Left knee pain (ICD-10 - M25.562) 07/31/2024 Primary osteoarthritis of left knee (ICD-10 - M17.12) Here at [facility] we use our CFAN model to [...] by under direct supervision Betty Norris MD 07/31/2024 Pes anserinus bursitis of left knee (ICD-10 - M70.52) Plan Of Treatment Treatment Notes Assessment Notes Primary osteoarthritis of left knee Here at [facility] we use our CFAN model to [...] with the patient, recommended and performed today Progress Notes * Dayana MILNERDOB:[birth year] (75 yo F)Acc No.[id number]:07/31/2024 Patient: Arun GONSALEZDayana RAUSCH Provider: Kam NORRIS MD :1950 A ge:74 Y S ex:Female Date:07/31/2024 [facility] [address] [facility] Subjective: * Chief Complaints: * 1 . Left Knee. * HPI: - -Patient Information: Patient is a [age] year old female who presents today for evaluation of knee pain. - Follow up Visit: Patient was initially evaluated for patient was first evaluated for knee pain.. At their last appointment on 0 07/23/2024 patient had Ultrasound guided neural blockade of bilateral saphenous branch of the femoral nerve(s) .. Since their last visit P atient reports. Patient continues to have A dull achy pain that is always there and is tender to palpation . Based on Visual Analog Scale, the patient [...] anserinus bursitis of left knee - M70.52 Plan: * Treatment: * * Electronic signature of RICHIE NORRIS MD on 03/11/2025 at 11:36 PM QUALITY MANAGEMENT NURSE Sign off status: Pending * Provider: Kam NORRIS MD Date: 0 07/31/2024 Generated for Krysta rooney/Ela/Gala on: 05/11/2024 11:36 PM QUALITY MANAGEMENT NURSE History and Physical Notes * HPI (History of Present Illness) Category Sub-Category Detail Notes Category Not es -Follow up Visit Patient was initiall y evaluated for 09/01/2019 patient was first evaluated for knee pain. At their last appointment on 07/23/2024 patient had Ultrasound guided neural blockade of bilateral saphenous [...]
--- OUTSIDE RECORDS SUMMARY | 2024-07-31 08:00 | XMS_ITS ---
Author Organization [facility], Joe Address [address] [place] [address] Care Team Providers Care Meat Clerk Name Role Phone KATIE NORRIS Unavailable [phone] GUY THAPA Unavailable [phone] REASON FOR VISIT Left Knee Medications Medication [...] Location Date Provider Diagnosis [facility] [address] [facility] [address] [address] 07/31/2024 KATIE NORRIS Left knee pain M25.5 62 ; Primary osteoarthritis of left knee M17.12 and Pes anserinus bursitis of left knee M70.52 Assessments Encounter Date Diagnosis (ICD Code) Assessment Notes Treatment Notes Treatment Clinical Notes Section Notes 07/31/2024 Left knee pain (ICD-10 - M25.562) 07/31/2024 Primary osteoarthritis of left knee (ICD-10 - M17.12) Here at [facility] we use our CFAN model to Restore [...] Primary osteoarthritis of left knee Here at [facility] we use our CFAN model to Restore [...] * Dayana MILNERDOB:[birth year] (75 yo F)Acc No.[id number]:07/31/2024 Patient: Arun GONSALEZDayana RAUSCH Provider: Kam NORRIS MD :1950 A ge:74 Y S ex:Female Date:07/31/2024 [facility] [address] [id number] Subjective: * Chief Complaints: * 1 . [...] NORRIS MD on 03/11/2025 at 10:03 PM GLASS CLEANER Sign off status: Pending * Provider: Kam NORRIS MD Date: 0 07/31/2024 Generated for Krysta rooney/Ela/Gala on: 05/11/2024 10:03 PM GLASS CLEANER History and Physical Notes * HPI (History [...]
--- OUTSIDE RECORDS SUMMARY | 2025-03-11 22:03 | XMS_ITS | Clinical Summary ---
Author Organization [place] Address [address] [facility] [place] [address] Care Team Providers Care Chain Mortiser Operator Name Role Phone [facility] Primary Care Provider + Allergies No known active allergies Medications DILTIAZEM HCL PO Take 60 mg by mouth 4 times daily. Active multivitamin, therapeutic with minerals (THERA-VIT-M) TABS Take 1 tablet by mouth daily. Active [place]-3 Fatty Acids (OMEGA-3 FISH OIL PO) Take 1 g by mouth daily. OTC - Patient does not know strength - takes one per day. Active POTASSIUM GLUCONATE Take 1 tablet by mouth daily. OTC - Patient does not know strength - takes one per day. Active ondansetron (ZOFRAN ODT) 4 MG disintegrating tabletIndications: Intractable nausea and vomiting Take 1-2 tablets by mouth every 8 hours as needed for nausea. 20 tablet 1 07/10/19 13 Active Additional Information Patient not taking.Reported on 12/11/2017 Alendronate Sodium (FOSAMAX PO) Active warfarin (COUMADIN) 3 MG tablet TAKE 2 TABLETS BY MOUTH ONCE DAILY OR DIRECTED BY INR 2 08/26/19 16 Active warfarin (COUMADIN) 2 MG tablet TAKE 3 TABLETS BY MOUTH IN THE EVENING. STARTING 08-24-2015,THEN TAKE DIRECTED 0 08/24/19 16 Active enoxaparin (LOVENOX) 40 MG/0.4ML injection Inject 1 mg/kg Subcutaneous Active B Complex Vitamins (VITAMIN B COMPLEX PO) Take 1 capsule by mouth Active Multiple Vitamin (MULTI-VITAMINS) TABS Take 1 tablet by mouth Active Cholecalciferol (VITAMIN D3) 1000 units CAPS Take 1 capsule by mouth Active warfarin (COUMADIN) 7.5 MG tablet Take 7.5 mg by mouth daily 3 11/13/19 18 Active GLUCOSAMINE SULFATE PO 10/18/19 14 Active Active Problems Patient Care Coordination No te Formatting of this note migh t be different from the original. [email or web address] Problem Noted Date Diagnosed Date Gastroenteritis 07/08/2012 Resolved Problems Problem Noted Date Diagnosed Date Resolved Date Tear meniscus knee, left, faustin bsequent encounter 09/03/2015 10/01/2015 Aftercare following surgery of the musculoskeletal system 09/03/2015 10/01/2015 Family History Medical History Relation Comments Heart Disease Father Kidney Cancer Mother Colon Cancer No family hx of Relation Status Comments Father Mother Social History Tobacco Use Types Packs/Day Years Used Date Smoking Tobacco: Never Smokeless Tobacco: Never Alcohol Use Standard Drinks/Week Comments Yes 0 (1 standard drink = 0.6 oz pur e alcohol) Comments No Sex and Gender Information Value Date Recorded Sex Assigned at Not on file Legal Sex Female 3:20 AM PROPERTY PORTFOLIO OFFICER Gender Identity Not on file Sexual Orientation Not on file Last Filed Vital Signs Vital Sign Reading Time Taken Comments Blood Pressure 119/78 12/24/2017 9:22 AM CDT Pulse 69 12/11/2017 1:51 PM CDT Temperature 36.9 C (98.5 F) 07/09/2012 7:00 AM PROPERTY PORTFOLIO OFFICER Respiratory Rate 16 08/22/2016 10:30 AM CDT Oxygen Saturation 98% 12/11/2017 1:51 PM CDT Inhaled Oxygen Concentration - - Weight 84.4 kg (186 lb) 12/24/2017 9:22 AM CDT Height 167.6 cm (5' 6) 12/24/2017 9:22 AM CDT Body Mass Index 30.02 12/24/2017 9:22 AM CDT Plan of Treatment Not on file Insurance MEDICARE Advance Directives For more information, please contact: [phone] * Full Code (Latest Code Status on File) Date Activated Date Inactivated Comments 07/09/2012 2:53 PM * Full Code Date Activated Date Inactivated Comments 07/08/2012 7:55 PM 07/09/2012 2:53 PM Care Teams Chain Mortiser Operator Relationship Specialty Start Date End Date [facility] PCP - General 07/08/12
--- OUTSIDE RECORDS SUMMARY | 2025-03-11 22:03 | XMS_ITS | Clinical Summary ---
[facility] Address [address], [place] [address] Care Team Providers Care Supply Crib Attendant Name Role Phone Leona Harper MD Primary Care Provider [phone] Source Comments You are receiving this document as you are listed as the primary care provider,follow-up provider, or the patient has been referred to you for consultation.This is in compliance with the Medicare andT[facility] Medical Centercaid EHR Incentive Program,which states Providers who transition their patient to another setting of careor provider of care or refers their patient to another provider of care shouldprovide summary care record for each transition of care or referral. [facility] Allergies Active Allergy Reactions Criticality Noted Date Comments Oxycodone Gastrointestinal 04/18/2022 Dry heaves and vomiting Medications UNKNOWN MEDICATION Indications: PN: 08/05/19 11 Active Ergocalciferol (VITAMIN D2) 400 UNITS TABS Indications: PN: 08/08/19 08 Active Multiple Vitamins-[place] als (THERAPEUTIC MULTIVIT/CHILD HEALTH ASSOCIATE AL) tablet Take 1 Tablet by mouth daily. 3 07/09/19 08 Active B Complex Vitamins (VITAMIN B COMPLEX OR) Take by mouth. 08/08/19 08 Active ascorbic acid (AKA VITAMIN C) 500 MG tablet Take by mouth. 08/08/19 08 Active omega-3 fatty acids (FISH OIL) 1000 MG capsule Take 1 Capsule (1,000 mg) by mouth daily. 07/02/19 16 Active amoxicillin (AMOXIL) 500 MG capsule 03/02/20 Active methocarbamol (ROBAXIN) 500 MG tabletIndicati ons:Musculoske letal Pain Take 1 Tablet (500 mg) by mouth three times a day. Indications: Musculoskeletal Pain 30 Tablet 04/21/2022 2:23 PM SPORTS BOOK BOARD ATTENDANT 04/21/20 Active Additional Information Patient not taking.Reported on 04/22/2022 warfarin 7.5 MG tablet Take half a tablet to 2 tablets by mouth once a day. 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 A-fib 04/18/2022 Overview (04/18/2022): Prior ablation Hx of laparoscopic adjustable gastric banding SBO (small bowel obstruction) 04/18/2022 Overview (04/18/2022): Added automatically from request for surgery [id number] Complication of gastric banding 04/18/2022 Overview (04/18/2022): Added automatically from request for surgery [id number] Congenital deficiency of clotting factors 2010 Overview (12/27/2016): Factor V Leiden Diaphragmatic hernia 06/03/2007 Overview (12/27/2016): LW Modifier: laparoscopic repair LW Onset: 06/03/07 ; Hernia Diaphragmatic Morbid obesity 04/04/2006 Overview (12/27/2016): Obesity Morbid Esophageal reflux 04/04/2006 Overview (12/27/2016): Gastroesophageal Reflux Disease Social History Tobacco Use Types Packs/Day Years Used Date Smoking Tobacco: Never Smokeless Tobacco: Never Tobacco Cessation:Counseling Given: Not Answered Comments No Sex and Gender Information Value Date Recorded Sex Assigned at Not on file Legal Sex Female 4:37 AM CDT Gender Identity Not on file Sexual Orientation Not on file Last Filed Vital Signs Vital Sign Reading Time Taken Comments Blood Pressure 144/90 09/20/2022 10:25 AM CDT Pulse 70 09/20/2022 10:25 AM CDT Temperature 36.6 C (97.8 F) 09/20/2022 10:25 AM CDT Respiratory Rate 16 09/20/2022 10:25 AM CDT Oxygen Saturation 100% 09/20/2022 10:25 AM CDT Inhaled Oxygen Concentration - - Weight 90.3 kg (199 lb) 04/20/2022 9:00 AM SPORTS BOOK BOARD ATTENDANT Height 165.1 cm (5' 5) 04/18/2022 5:24 PM SPORTS BOOK BOARD ATTENDANT Body Mass Index 33.12 04/18/2022 5:24 PM SPORTS BOOK BOARD ATTENDANT Plan of Treatment Health Maintenance Due Date Last Done Comments Hep C Screening (Preventive Services) 1950 Dexa 01/20/2013 RSV Vaccine (1 - 1-dose 75+ series) 01/20/2023 Medicare Annual Wellness Visit 05/07/2024 COVID-19 Vaccine ( season) 2025 09/04/2022, 01/12/2022, 08/23/2021, Additional history exists Influenza Vaccine (#1) 2025 , 01/31/2021, 01/05/2020, Additional history exists DTaP/Tdap/Td Vaccine (4 - Tdap) 09/06/2032 09/06/2022, 02/10/2022, 01/16/2012 Pneumococcal Vaccine 50+ Yrs Completed 05/2016, 09/07/2015, 05/18/2011 Zoster/Shingles Vaccine Completed 12/19/19 18, 10/15/2017, 06/02/2010 HepA Vaccine Aged Out No longer eligi ble based on patient's age to complete this topic HepB Vaccine Aged Out No longer eligi ble based on patient's age to complete this topic Hib Vaccine Aged Out No longer eligi ble based on patient's age to complete this topic MCV4 Vaccine Aged Out No longer eligi ble based on patient's age to complete this topic Meningococcal B Vaccine Aged Out No l onger eligible based on patient's age to complete this topic Insurance [facility] MEDICARE ADVANTAGE Advance Directives * Full Code (Latest Code Status on File) Date Activated Date Inactivated Comments 04/18/2022 6:20 PM 04/21/2022 4:55 PM Care Teams Supply Crib Attendant Relationship Specialty [place] [address] [place] [address] PCP - General 08/07/10
--- OUTSIDE RECORDS SUMMARY | 2025-03-11 22:04 | XMS_ITS | Clinical Summary ---
Author Organization [facility] Address [address] [place] [id number] Care Team Providers Care Power Sewing Machine Operator Name Role Phone Gentry Nova MD Unavailable + [phone] Xena Michelle NP Unavailable [phone] Kelli Dye MD Primary Care Provider [phone] Allergies Active Allergy Reactions Criticality Noted Date Comments Oxycodone Stomach Upset 04/18/2022 Dry heaves and vomiting Medications multivitamin (MVI) tablet Take 1 tablet by mouth once daily. Active lactobacillus combination no.4 (PROBIOTIC) 3 billion cell cap Take 1 capsule by mouth once daily. 0 02/27/20 20 Active medication order composer Tumeric 1000mg 1 tablet daily 0 02/27/20 20 Active medication order composer Glucosamine 1500mg 1 tablet daily 0 02/27/20 20 Active vitamin B complex (B COMPLEX 1 ORAL) Take 1 tablet by mouth once daily. Active cholecalciferol , vitamin D3, (VITAMIN D3 ORAL) Take 1 capsule by mouth once daily. Active BIOTIN ORAL Take 1 capsule by mouth once daily. Active psyllium husk (METAMUCIL ORAL) Take by mouth. Activ e vit A/C/E ac/ZnOx/cupric oxide (EYE VITAMIN AND MINERALS ORAL) Take by mouth. Active [id number] -Fish Oil (Fish OiL) 1,000 mg (120 mg-180 mg) cap 2 Capsules. Active escitalopram oxalate (LEXAPRO) 10 mg tabletIndicatio ns:Anxiety Take 1 Tablet (10 mg) by mouth once daily in the morning. 90 Tablet 3 03/05/20 24 Active omeprazole 20 mg Delayed-Release capsuleIndicati ons:Chronic cough Take 1 Capsule (20 mg) by mouth once daily before a meal. 90 Capsule 2 08/08/19 25 Active atorvastatin (LIPITOR) 10 mg tabletIndicatio ns:Coronary artery disease involving [place] coronary artery of [place] heart without angina pectoris TAKE 1 TABLET BY MOUTH EVERYDAY AT BEDTIME 90 Tablet 2 01/22/20 25 Active budesonide (PULMiCORT) 1 mg/2 mL neb suspensionIndic ations:Chronic pansinusitis Put one respule and salt packet in Sinus Rinse twice daily. Do not use in addition to flonase or other nasal steroid medications. 180 mL 3 01/30/20 Active Additional Information Patient not taking.Reported on 03/09/2025 warfarin (COUMADIN) 7.5 mg tabletIndicatio ns:Factor V deficiency (HC),History of pulmonary embolism,Antico agulation monitoring, INR range 2-3,PAF (paroxysmal atrial fibrillation) (HC) Take by mouth 3.75 mg (7.5 mg x 0.5) every Sun, e, Hui; 7.5 mg (7.5 mg x 1) all other days or as directed 02/17/20 Active losartan (COZAAR) 25 mg tabletIndicatio ns:Essential hypertension Take 1 Tablet (25 mg) by mouth once daily. 90 Tablet 03/09/20 25 Active APPLE CIDER VINEGAR ORAL Take by mouth. Ac tive losartan (COZAAR) 25 mg tabletIndicatio ns:Essential hypertension Take 1 Tablet (25 mg) by mouth once daily. 90 Tablet 01/22/20 25 2024 Discontinued warfarin (COUMADIN) 7.5 mg tabletIndicatio ns:Factor V deficiency (HC),History of pulmonary embolism,Antico agulation monitoring, INR range 2-3,PAF (paroxysmal atrial fibrillation) (HC) Take by mouth 7.5 mg every Mon, Wed, Fri; 3.75 mg all other days in the evening OR as directed. 02/04/20 25 2024 Discontinued(R eorder (E-cancel not sent)) Active Problems Problem Noted Date Diagnosed Date Disorder of pulmonary circulation 03/09/2025 Overview (03/09/2025): AI Summary: The patient had a history of pulmonary embolism, which was mentioned as recurrent in some instances. A pulmonary embolism was mentioned as a Hierarchical Condition Categories condition in 2016. On 06/10/2020, the patient's history included pulmonary embolism. 12/03/24: BP 130/88 On meds: atorvastatin, losartan, warfarin Recent notes: 11/25/24: Progress Notes - Otolaryngology- Head & Neck Surgery - Otolaryngology- Head & Neck Surgery by Erasmo Villafana MD ... [+] ? Pulmonary embolism (HC) 2016 10/27/24: Progress Notes by SEBASTIÁN Child ... [+] ? History of pulmonary embolism Z86.711 03/05/24: Progress Notes by Kelli Dye MD ... [+] Patient had recurrent DVT and pulmonary embolism. ... [-] History of pulmonary embolism Dilated cardiomyopathy 03/13/2023 Arthritis of both knees 05/11/2022 Femoral neuritis 05/11/2022 Neuritis of left saphenous nerve 05/11/2022 Patellofemoral syndrome of right knee 05/11/2022 Primary localized osteoarthrosis of ankle and fo ot 05/11/2022 Essential hypertension 04/18/2022 Hx of laparoscopic adjustable gastric banding Mononeuropathy of lower extremity 04/18/2022 A-fib 04/18/2022 Overview (01/11/2024): Prior ablation Osteoarthritis of left foot 01/23/2022 Overview (03/09/2025): Primary osteoarthritis of left foot; W/U Status: confirmed Benign neoplasm of ascending colon 10/14/2021 Benign neoplasm of transverse colon 10/14/2021 Diverticular disease of large intestine 10/13/19 22 PAF (paroxysmal atrial fibrillation) 06/15/2020 History of pulmonary embolism 06/10/2020 Overview (08/15/2023): recurrent DVT and pulmonary embolism. This was diagnosed 2015. She is on lifelong Coumadin. Follows with Coumadin clinic. Anticoagulation monitoring, INR range 2-3 2020 Unspecified dyspareunia 01/05/2020 Patellofemoral stress syndrome 11/18/2018 Overview (03/09/2025): Patellofemoral pain syndrome of right knee; W/U Status: confirmed Factor V Leiden mutation 02/14/2018 Overview (03/09/2025): Factor V Leiden; W/U Status: confirmed Primary osteoarthritis of both knees 02/08/2018 Overview (03/09/2025): Primary osteoarthritis of knees, bilateral; W/U Status: confirmed Activated protein C resistance 08/26/2015 Aortic dilatation 10/17/2013 Overview (10/17/2013): Of ascending aorta on echocardiogram. 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 Overview (01/11/2024): Factor V Leiden Esophageal reflux 04/04/2006 Overview (05/11/2022): Gastroesophageal Reflux Disease Resolved Problems Problem Noted Date Diagnosed Date Resolved Date Osteoarthritis of knee 05/11/202208/14 Post-traumatic osteoarthritis of both knees 05/11/2022 08/15/2023 Complication of gastric banding 04/18/2022 08/15/2023 Overview (08/15/2023): SBO (small bowel obstruction) 04/18/2022 08/15/2023 Overview (08/15/2023): Cardiomyopathy 08/03/2020 02/10/2022 Thyrotoxicosis, unspecified with thyrotoxic crisis or storm 12/07/2016 08/15/2023 Diaphragmatic hernia 06/03/2007 024 Overview (08/15/2023): LW Modifier: laparoscopic repair LW Onset: 06/03/07 ; Hernia Diaphragmatic Morbid obesity 04/04/2006 08/15/2023 Overview (05/11/2022): Obesity Morbid Encounters Date Type Department Care Team Description 03/09/2025 2:45 PM PRODUCTION MACHINE COMPUTER OPERATOR Orders Only [address] [address] <No scans attached> 03/09/2025 1:30 PM PRODUCTION MACHINE COMPUTER OPERATOR Office Visit [address] [address] Nahum Gandhi MD Follow Up (Left leg pain) 03/09/2025 Anticoagulation (warfarin) [facility] [address] [place] [phone] Nurse, [facility] Anticoag Anticoagulation 03/09/2025 Travel 03/09/2025 Refill [facility] [address] [facility] [address] [place] [phone] Lili Nova PA Refill Request (Losartan) 03/09/2025 Nurse Triage [facility] [id number] [place] [phone] Kelli Dye MD Knee Pain/problem 03/07/2025 10:40 AM CDT Office Visit [facility] [address] [facility] [address] [place] [address] Tomy Frausto PA Knee Pain/problem (Left knee) 03/07/2025 Travel 03/02/2025 1:00 PM CDT Orders Only [address] [address] Lab 03/02/2025 Telephone [facility] [address] [place] [phone] Nurse, Ric Anticoemily Anticoagulation (Renewal Orders) 03/02/2025 Anticoagulation (warfarin) [facility] [address] [place] [address] Nurse, Ric Anticoag Anticoagulation 03/02/2025 Travel 02/16/2025 3:15 PM CDT Orders Only [facility] [address] [place] [address] Lab 02/16/2025 Anticoagulation (warfarin) [facility] [address] [place] [address] Nurse, Ric Anticoag Anticoagulation 02/16/2025 Travel 02/03/2025 8:47 AM CDT - 02/03/2025 11:59 PM CDT Hospital Encounter [facility] [address] [facility] [address] [place] [address] Karissa White MD Aorta aneurysm; Aortic insufficiency; Aneurysm of aorta in diseases classified elsewhere 02/03/2025 Anticoagulation (warfarin) [facility] [address] [place] [address] Nurse, Ric Anticoag Anticoagulation 02/02/2025 3:40 PM CDT Orders Only [facility] [address] [facility] [address] [place] [address] <No scans attached> 02/02/2025 2:45 PM CDT Office Visit [facility] [address] [facility] [address] [place] [address] Awilda Zavala, DO Derm Problem 02/02/2025 Travel 02/02/2025 Telephone [facility] [address] [place] [address] Jerome Vargas MD Questions (SINUS ) 01/30/2025 Anticoagulation (warfarin) [facility] [address] [place] [address] Nurse, Ric Anticoag Anticoagulation 01/29/2025 1:30 PM CDT Orders Only [address] [address] <No scans attached> 01/29/2025 8:40 AM CDT Office Visit [address] [address] Jerome Vargas MD Cough (Cough) 01/29/2025 Travel 01/27/[address] [phone] Kelli Dye MD Anticoagulation (OPA: warfarin & Lovenox) 01/27/2025 Anticoagulation (warfarin) [address] [phone] Nurse, Ric Anticoag Anticoagulation 01/26/2025 1:45 PM CDT Orders Only [address] [address] Lab 01/26/2025 Travel 2025 Refill [facility] [address] [place] [address] Lili Nova PA Refill Request (Losartan) 01/20/[address] [phone] Kelli Dye MD Refill Request (Atorvastatin) 01/18/[address] [address] Kelli Dye MD Refill Request (Warfarin) 01/08/2025 1:00 PM CDT Orders Only [address] [address] Lab 01/08/2025 Travel 01/07/2025 Telephone [facility] [address] [place] [address] Karissa White MD Imaging (MR ANGIO); Cardiology Appointment (NEW TO YOU) 01/06/2025 10:15 AM CDT Orders Only [facility] [address] [place] [address] Lab 01/06/2025 Telephone [facility] [address] [place] [phone] Kelli Dye MD Anticoagulation (Bridging clarity) 01/06/2025 Anticoagulation (warfarin) [facility] [address] [place] [phone] Nurse, Ric Anticoag Anticoagulation 01/06/2025 Travel 01/01/2025 Telephone [facility] [address] [place] [phone] Kelli Dye MD Medication Problem (states she saw Dr. Dye on 12/24/2024 and was told she would get a Lovenox prescription, but her pharmacy does not have a prescription for that medication. Please call patient. Uses [facility] pharmacy in [place] on [address].) 12/29/2024 Telephone [facility] [address] [place] [phone] Kelli Dye MD Anticoagulation (Warfarin dosing and next check) 12/24/2024 10:30 AM CDT Office Visit [address] [phone] Kelli Dye MD Cough (--Chronic/--Pt saw ENT recently and wants to discuss recommended procedure w/PCP) 12/24/2024 Travel 12/19/2024 1:00 PM CDT Orders Only [facility] [address] [place] [address] <No scans attached> 12/19/2024 Anticoagulation (warfarin) [facility] [address] [place] [phone] Nurse, Ric Anticoag Anticoagulation 12/19/2024 Travel 12/09/2024 Telephone [facility] [address] [place] [address] Hett, Kelli Olivera MD Questions from Last 3 Months Immunizations Immunization Administration Dates Next Due Hepatitis B (Adult) 12/20/2017,10/15/2017,2013 Influenza A (H1N1), Inactivated 05/18/2009 Influenza Intradermal PF 18-64 yrs 01/16/2012 Influenza, High-dose Inactivated 025,01/23/2024,02/14/2019,01/25,02/01/2017,02/15/2016,02/02/2013 Influenza, High-dose Quadriv alent Inactivated 01/12/2022,01/31/2021,01/05/2020 Influenza, IIV3 (Age >=3 years) 02/09/2014 Influenza, Inactivated AIIV4 (Age 65+ Years) Preserv Free 01/19/2023 Influenza, Intradermal Inactivated 01/16/2012 Pneumococcal Conj 20-valent (Prevnar 20) 01/23/2024 Pneumococcal Poly,23-Valent (Pneumovax) 10/05/2016,05/18/2011 Pneumococcal conj 13-Valent (Prevnar 13) 09/07/2015 RSV, Bivalent Vaccine Recons tituted (Abrysvo 120MCG/0.5mL) 01/19/2023 Tdap 09/06/2022,02/10/2022,01/16/2012 Zoster (Shingrix-RZV, recombinant) 12/18/2017, Zoster (Zostavax-ZVL, live) 06/02/2010 Family History Medical History Relation Name Comments Aortic aneurysm Father AAA rupture Cancer-breast Maternal Grandmother Cancer Mother Renal Cell Carc inoma Cancer-breast Mother Cancer-ovarian No Family History Relation Name Status Comments Brother x7; 2 d/c AAA Father Maternal Grandmother (Age unknow n) Diagnosed at 92 Mother Sister x3 Social History Tobacco Use Types Packs/Day Years Used Date Smoking Tobacco: Former Cigarettes 0.5 30 0 05/07/1967 - 05/07/1997 Passive Smoke Exposure: Never Smokeless Tobacco: Never Tobacco Cessation:Counseling Given: Not Answered Comments:lite smoker/ social maybe pack a week Alcohol Use Standard Drinks/Week Comments Not Currently 0 (1 standard drink = 0.6 oz pur e alcohol) PHQ-2 Answer Date Recorded PHQ-2 TOTAL SCORE 1 03/05/2024 Social Connections Answer Date Recorded Do you often feel lonely or isolated from those around you? 0 04/15/2024 Alcohol Use Answer Date Recorded How often do you have a drink containing alcohol ? 1 03/09/2025 How many drinks containing a lcohol do you have on a typical day when you are drinking? 0 03/09/2025 How often do you have five or more drinks on one occasion? 0 03/09/2025 Financial Resource Strain Answer Date R ecorded Difficulty of Paying Living Expenses 3 03/05/2024 Difficulty of Paying Living Expenses Not on file 03/05/2024 Food Insecurity Answer Date Recorded Do you worry your food will run out before you are able to buy more? 1 04/15/2024 Transportation Needs Answer Date Record ed Does lack of transportation keep you from medica l appointments? 1 04/15/2024 Does lack of transportation keep you from work, meetings or getting things that you need? 1 04/15/2024 Housing Stability Answer Date Recorded What is your housing situation today? 1 04/15/2024 Utilities Answer Date Recorded Do you have trouble paying f or utilities (for example, heat, electricity, water, phone)? 1 04/15/2024 Comments No Sex and Gender Information Value Date Recorded Sex Assigned at Not on file Legal Sex Female 6:08 AM PRODUCTION MACHINE COMPUTER OPERATOR Gender Identity Not on file Sexual Orientation Not on file Obstetrics History Last Filed Vital Signs Vital Sign Reading Time Taken Comments Blood Pressure 100/62 03/09/2025 1:28 PM PRODUCTION MACHINE COMPUTER OPERATOR Pulse 72 03/09/2025 1:28 PM PRODUCTION MACHINE COMPUTER OPERATOR Temperature 37.2 C (98.9 F) 03/07/2025 10:44 AM CDT Respiratory Rate 18 03/07/2025 10:44 AM CDT Oxygen Saturation 96% 03/07/2025 10:48 AM CDT Inhaled Oxygen Concentration - - Weight 94.9 kg (209 lb 4.8 oz) 03/09/2025 1:26 P M PRODUCTION MACHINE COMPUTER OPERATOR Height 162.6 cm (5' 4) 03/09/2025 1:26 PM PRODUCTION MACHINE COMPUTER OPERATOR Body Mass Index 35.93 03/09/2025 1:26 PM PRODUCTION MACHINE COMPUTER OPERATOR Plan of Treatment Upcoming Encounters Date Type Department Care Team (Late st Contact Info) Description 03/12/2025 9:30 AM PRODUCTION MACHINE COMPUTER OPERATOR Ancillary Procedure [facility] [address] [place] [phone] 03/31/2025 1:00 PM PRODUCTION MACHINE COMPUTER OPERATOR Office Visit [facility] [address] [place] [address] Jaime Patino MBBS [address] [facility] [address] [place] [address] 04/06/2025 11:15 AM PRODUCTION MACHINE COMPUTER OPERATOR Orders Only [facility] [address] [place] [address] 05/06/2025 10:30 AM PRODUCTION MACHINE COMPUTER OPERATOR Office Visit [facility] [address] [place] [phone] [place] [address] [place] [address] Scheduled Procedures Name Priority Associated Diagnoses Date/Ti me ENDOSCOPIC SINUS PROCEDURE Tier 3: within 90 days Nasal polyps Chronic pansinusitis Health Maintenance Due Date Last Done Comments Depression screening for age 12+ 03/05/2025 03/05/2024, 03/05/2024, 08/15/2023, Additional history exists Medicare Wellness for age 65+ 03/06/2025, 02/27/2023, 02/10/2022, Additional history exists BMI (ht and wt on same day) for age 18+ 03/09/2026 03/09/2025, 05/30/2024, 03/05/2024, Additional history exists Tetanus booster 09/06/2032 09/06/2022, 1011/2021, 01/16/2012 Zoster (shingles) series for age 50+ Completed 12/18/2017, 10/15/2017, 06/02/2010 Hepatitis B series for 19+ Completed 12/20, 10/15/2017, 08/28/2013 Hepatitis C screening for ag e 18-79 Completed 02/10/2022 RSV vaccine for adults or Completed 01/19/2023 DEXA/DXA scan for age 65+ Completed 02/27/2023, Pneumococcal series for age 50+ Completed 01/23/2024, 10/05/2016, 09/07/2015, Additional history exists Influenza Vaccine Completed 01/10/2025, , 01/19/2023, Additional history exists Procedures Procedure Name Priority Date/Time Associated Diagnosis Comments INR,POCT Routine 03/09/2025 2:20 PM PRODUCTION MACHINE COMPUTER OPERATOR Factor V deficiency (HC) History of pulmonary embolism Anticoagulation monitoring, INR range 2-3 PAF (paroxysmal atrial fibrillation) (HC) INR,POCT Routine 03/02/2025 1:05 PM CDT Factor V deficiency (HC) History of pulmonary embolism Anticoagulation monitoring, INR range 2-3 PAF (paroxysmal atrial fibrillation) (HC) INR,POCT Routine 02/16/2025 3:12 PM CDT Factor V deficiency (HC) History of pulmonary embolism Anticoagulation monitoring, INR range 2-3 PAF (paroxysmal atrial fibrillation) (HC) MR ANGIO CHEST WO CONTRAST Routine 02/03/2025 10:05 AM CDT Aorta aneurysm Aortic insufficiency Aneurysm of aorta in diseases classified elsewhere PLATELET COUNT STAT 02/02/2025 3:21 PM CDT Factor V deficiency (HC) History of pulmonary embolism Anticoagulation monitoring, INR range 2-3 PAF (paroxysmal atrial fibrillation) (HC) PROTIME-INR STAT 02/02/2025 3:21 PM CDT Factor V deficiency (HC) History of pulmonary embolism Anticoagulation monitoring, INR range 2-3 PAF (paroxysmal atrial fibrillation) (HC) PLATELET COUNT STAT 01/29/2025 1:14 PM CDT Factor V deficiency (HC) History of pulmonary embolism Anticoagulation monitoring, INR range 2-3 PAF (paroxysmal atrial fibrillation) (HC) PROTIME-INR Routine 01/29/2025 1:14 PM CDT Factor V deficiency (HC) History of pulmonary embolism Anticoagulation monitoring, INR range 2-3 PAF (paroxysmal atrial fibrillation) (HC) PLATELET COUNT STAT 01/26/2025 1:08 PM CDT Factor V deficiency (HC) History of pulmonary embolism Anticoagulation monitoring, INR range 2-3 PAF (paroxysmal atrial fibrillation) (HC) PROTIME-INR Routine 01/26/2025 1:08 PM CDT Factor V deficiency (HC) History of pulmonary embolism Anticoagulation monitoring, INR range 2-3 PAF (paroxysmal atrial fibrillation) (HC) SCAN-COLONOSCOPY 2025 9:00 AM CDT CBC W PLT NO DIFF Routine 01/08/2025 12: 57 PM CDT Factor V deficiency (HC) History of pulmonary embolism Anticoagulation monitoring, INR range 2-3 PAF (paroxysmal atrial fibrillation) (HC) CREATININE Routine 01/08/2025 12:57 PM CDT Factor V deficiency (HC) History of pulmonary embolism Anticoagulation monitoring, INR range 2-3 PAF (paroxysmal atrial fibrillation) (HC) PROTIME-INR Routine 01/08/2025 12:57 PM CDT Factor V deficiency (HC) History of pulmonary embolism Anticoagulation monitoring, INR range 2-3 PAF (paroxysmal atrial fibrillation) (HC) INR,POCT Routine 01/06/2025 9:51 AM CDT Factor V deficiency (HC) History of pulmonary embolism Anticoagulation monitoring, INR range 2-3 PAF (paroxysmal atrial fibrillation) (HC) INR,POCT Routine 12/19/2024 1:00 PM CDT Factor V deficiency (HC) History of pulmonary embolism Anticoagulation monitoring, INR range 2-3 PAF (paroxysmal atrial fibrillation) (HC) XR DXA BONE DENSITY 2 SITES AXIAL Routine 02/27/2023 10:03 AM CDT Osteopenia of multiple sites ANTI HCV Routine 02/10/2022 10:36 AM CDT Encounter for hepatitis C screening test for low risk patient from Last 3 Months or Most Recently Relevant to Health Maintenance Results * (ABNORMAL) INR - POCT [89618.2] - Standing Order (03/09/2025 2:20 PM PRODUCTION MACHINE COMPUTER OPERATOR) Only the most recent of5 resultswithin the time period is included. INR 2.1(H) ratio 03/09/2025 2:26 PM PRODUCTION MACHINE COMPUTER OPERATOR [facility] Comment: INRs >2.9 may be falsely elevated in patients receiving either unfractionated Heparin or Low Molecular Weight Heparin. Follow up testing in a hospital laboratory may be helpful if clinically indicated. INR results of > or = 5.0 should be verified using the standard venipuncture procedure. Reference Range 0.9-1.1 Moderate-intensity Warfarin Therapy 2.0-3.0 Higher-intensity Warfarin Therapy 3.0-4.0 PROTHROMBIN TIMEP 25.6(H) 10.5 - 13.1 sec 03/09/2025 2:26 PM PRODUCTION MACHINE COMPUTER OPERATOR [facility] Comment: Point of care fingerstick Prothrombin Time/INR results may vary from venous Prothrombin Time/INR methodologies. Any results exhibiting inconsistency with the patient's clinical status should be repeated using a venous Prothrombin Time/INR method. Blood BLOOD SPECIMEN / Unknown [facility] / Unknown 03/09/2025 2:20 PM PRODUCTION MACHINE COMPUTER OPERATOR 03/09/2025 2:20 PM PRODUCTION MACHINE COMPUTER OPERATOR Kelli Dye MD LABORATORY Final Result [facility] [place] [id number] [place] [address], [facility] [address] [place] [address] * MR Angio Chest wo Contrast (02/03/2025 10:05 AM CDT) Anatomical Region Laterality Modality CHEST, THORAX, Lung, HEART Magne tic Resonance 02/03/2025 9:27 AM CDT Narrative 02/03/2025 1:50 PM CDT [facility] CMR Report Name: HUBER MILNER : Scan Date: Electronically signed by Andrew Esquivel 13:50:05 VITALS ===== HEIGHT: 63 in (160 cm) WEIGHT: 209 lbs (95 kgs) BSA: 1.97 m^2 FINAL IMPRESSION ===== 1. Trileaflet aortic valve with trivial aortic valve regurgitation. Regurgitant volume less than 5 mL. No significant aortic stenosis. 2. Moderately dilated aortic root measuring 48 mm in maximal diameter across the right and left coronary cusps using a cusp to cusp technique. The aortic root area to height ratio was 10.4 cm^2/m. 3. Apparent right subclavian artery originating from the distal transverse aorta. Aberrant right subclavian artery appears normal size. 4. Normal size transverse and descending thoracic aorta without evidence of coarctation or dissection. 5. Grossly normal left ventricular size and systolic function. No significant pericardial effusion. When compared to the patient's previous study dated January 04, 2024, no significant change in two-dimensional measurements. Trivial increase in aortic root area. 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 AORTIC ARCH MEASURES: 35 mm AT THE LEVEL OF ISTHMUS: 35 mm AT THE LEVEL OF DIAPHRAGM: 32 mm SCAN INFO ===== GENERAL ----- --- SCANNER PROTECTIVE SIGNAL OPERATIONS SUPERVISOR: [employer] MODEL: [employer] SETUP REFERRING PHYSICIAN: KARISSA WHITE ATTENDING PHYSICIAN: KARISSA WHITE BILLING ===== Patient Account [id number] ICD10 Codes I71.9, I35.1, I79.0 Report generated by [employer], a product of [employer] Procedure Note Andrew Esquivel MD - 02/03/2025 [facility] CMR Report Name: HUBER MILNER : Scan Date: Electronically signed by Andrew Esquivel 13:50:05 VITALS ===== HEIGHT: 63 in (160 cm) WEIGHT: 209 lbs (95 kgs) BSA: 1.97 m^2 FINAL IMPRESSION ===== 1. Trileaflet aortic valve with trivial aortic valve regurgitation.Regurgitant volume less than 5 mL. No significant aortic stenosis. 2. Moderately dilated aortic root measuring 48 mm in maximal diameteracross the right and left coronary cusps using a cusp to cusp technique. The aortic root area to heightratio was 10.4 cm^2/m. 3. Apparent right subclavian artery originating from the distal transverseaorta. Aberrant right subclavian artery appears normal size. 4. Normal size transverse and descending thoracic aorta without evidenceof coarctation or dissection. 5. Grossly normal left ventricular size and systolic function. Nosignificant pericardial effusion. When compared to the patient's previous study dated January 04, 2024, nosignificant change in two-dimensional measurements. Trivial increase in aortic root area. 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 AORTIC ARCH MEASURES: 35 mm AT THE LEVEL OF ISTHMUS: 35 mm AT THE LEVEL OF DIAPHRAGM: 32 mm SCAN INFO ===== GENERAL ----- --- SCANNER PROTECTIVE SIGNAL OPERATIONS SUPERVISOR: SIEMENS MODEL: [employer]_fit SETUP REFERRING PHYSICIAN: KARISSA WHITE ATTENDING PHYSICIAN: KARISSA WHITE BILLING ===== Patient Account [id number] ICD10 Codes I71.9, I35.1, I79.0 Report generated by [employer], a product of [employer] Karissa White MD MR Final Result * STAT - PLATELET COUNT [[id number]] - Standing Order (02/02/2025 3:21 PM CDT) Only the most recent of3 resultswithin the time period is included. PLATELET COUNT 218 140 - 440 thou/cu mm 02/02/2025 11:06 PM CDT [facility] MPV 9.4 6.5 - 11.0 fL 02/02/2025 11:06 PM CDT [facility] Blood BLOOD SPECIMEN / Unknown [facility] / Unknown 02/02/2025 3:21 PM CDT 02/02/2025 3:21 PM CDT Kelli Dye MD HEMATOLOGY Final Result Performing Organization Address City/State/[facility] de Phone Number [facility] [address] [address], [place] * (ABNORMAL) STAT - Protime for POCT-INR >4.0 [93851.2] - Standing Order (02/02/2025 3:21 PM CDT) Only the most recent of4 resultswithin the time period is included. INR 3.0(H) <1.3 02/02/2025 11:25 PM CDT [facility] PROTIME 35.4(H) 10.6 - 12.4 sec 02/02/2025 11:25 PM CDT [facility] Blood BLOOD SPECIMEN / Unknown [facility] / Unknown 02/02/2025 3:21 PM CDT 02/02/2025 3:21 PM CDT Narrative [facility] - 02/02/2025 11:25 PM CDT Therapeutic Range 2.0-3.0 for most anticoagulated patients 2.5-3.5 or 4.0 for high risk patients The INR is only used for patients on stable oral anticoagulant therapy. It makes no significant contribution to the diagnosis or treatment of patients whose Protime is prolonged for other reasons. INR results are increased when heparin levels exceed 1.0 U/mL, which corresponds to an aPTT >125 seconds if the patient is on UFH. us Kelli Dye MD HEMATOLOGY Final Result Performing Organization Address [facility] de Phone Number [facility] [address] [address], [place] * SCAN-COLONOSCOPY (2025 9:00 AM CDT) Narrative Procedure Note Ruperto Rodríguez MBBS - 2025 7:43 AM CDT [facility] [address] [address], [address], [place] [address] Patient Name: Huber Milner Gender: Female Exam Date: 2025 Visit Number: [id number] Age: 75 Years Date of : 1950 Attending MD: Ruperto Rodríguez MD Medical Record#: [id number] Procedure: Colonoscopy Indications: Previous adenomatous polyp(s) Follow up suboptimal prep Referring MD: Referral Self Primary MD: Kelli Dye MD Medications: Admitting Medications: 0.9% Normal Saline at TKO Intra Procedure Medications: Patient received monitored anesthesia care. Complications: No immediate complications Procedure: An examination of the heart and lungs was performed and found to be withinacceptable limits. . The patient was therefore deemed a reasonablecandidate for endoscopy and sedation. The risks and benefits of the procedure were explained to thepatient.After obtaining informed consent, the patient received monitoredanesthesia care and I passed the scope with difficulty via the rectum to the cecum. The appendiceal orifice andic valve were identified. The scope was retroflexed during theexamination The quality of the prep was good (Miralax/Gatorade/2 tabletsBisacodyl/Magnesium Citrate). This was a complete examination throughout the entire colon. Findings: Long, redundant colon with excessive looping. Cecal intubation was ableto be achieved with patient repositioning. Anesthesia had to be terminated due to retching during the procedure. Polyp location: ascending colon. Quantity: 3. Size: 4 mm, 6 mm, 8 mm.Polyp shape: sessile. Maneuver: polypectomy was performed with a cold snare. Removal: complete. Retrieval: complete. Bleeding: none. Polyp location: transverse colon. Quantity: 2. Size: 10 mm 6 mm.Polyp shape: sessile. Maneuver: polypectomy was performed with a cold snare. Removal: complete. Retrieval: complete. Bleeding: none. Polyp location: descending colon. Quantity: 1. Size: 6 mm. Polypshape: sessile. Maneuver: polypectomy was performed with a cold snare. Removal: complete. Retrieval: complete. Bleeding: none. Diverticulosis. Location: - descending colon - sigmoid. Size:medium. Quantity: many. No inflammation present. Hemorrhoids. Internal and external hemorrhoids without bleeding. Remainder of the exam is normal. Impression: Colorectal polyps Internal and external hemorrhoids without complication Diverticulosis of colon without diverticulitis Preliminary Plan: The patient and their physician will receive a copy of the pathologyreport as well as pathology-based recommendations for future screening orsurveillance. Antiplatelets/Anticoagulants: Warfarin (Jantoven or Coumadin). Last dose:6 days ago. Restart. Date: 2025 Pathology Results: A: COLON, TRANSVERSE, POLYPS: 1. Tubular adenomas (2), one of which is an advanced adenoma 2. Negative for high grade dysplasia 3. Per the colonoscopy report: a. Polyp sizes: 6 mm and 10 mm b. Resection: Complete c. Retrieval: Complete B: COLON, ASCENDING, POLYPS: 1. Tubular adenomas (2, larger polyps) and sessile serratedadenoma (1, smallest polyp) a. Negative for high grade dysplasia in tubular adenomacomponent b. Negative for overt dysplasia in sessile serrated adenomacomponent 2. Per the colonoscopy report: a. Polyp sizes: 4 mm, 6 mm and 8 mm b. Resection: Complete c. Retrieval: Complete C: COLON, DESCENDING, POLYP: 1. Normal colonic mucosa (clinically, 1 polyp) 2. Negative for serrated change, dysplasia, and malignancy COMMENTS A. Advanced adenoma of the colorectum is defined by the [place] [employer]of G[employer] (ACG) as an adenoma that is 1 cm or more in size,contains an appreciable villous component, or has high grade dysplasia(Hamilton JH; Polyp Guideline: Diagnosis, Treatment, and Surveillance forPatients with Colorectal Polyps. Am J [id number];95(11):0174-7992). This polyp qualifies as such. Patients withadvanced adenomas are at increased risk for synchronous and metachronousadditional advanced adenomas. Appropriate follow-up is suggested. MICROSCOPIC A: Performed B: Performed C: Performed SPECIAL STAINING/DEEPER A: Deeper C: Deeper Electronically signed by: Danny Perrin MD Interpreted at [facility], [address] [place] [id number] Orders Instruction(s)/Education: Instruction/Education Timeframe Assessment Colon Cancer Prevention K63.5 Colon Polyps K63.5 Diverticulosis/Diverticulitis K63.5 Hemorrhoids (External) K63.5 Hemorrhoids (Internal) K63.5 High Fiber Diet K63.5 Final Plan: Repeat colonoscopy in 3 years after discussion with PCP. We will attempt to contact you at appropriate intervals via U.S. mail. Wemay not be able to find you or contact you at that time, therefore youshould know that the responsibility for following our recommendation restswith you. If you don't hear from us at the time your procedure is due,please contact our office to schedule an appointment. If your contactinformation should change, please contact our office so that we can updateyour record. _Electronically signed by: Ruperto Rodríguez MD 2025 cc: Kelli Dye MD us Ruperto JEFFERS OTHER Guera l Result * CBC W PLT NO DIFF [[id number]] (01/08/2025 12:57 PM CDT) WHITE BLOOD CELL COUNT 6.4 3.8 - 10.8 Thousand/u L 01/09/2025 4:00 AM CDT [facility] RED BLOOD CELL COUNT 4.64 3.80 - 5.10 Million/uL 01/09/2025 4:00 AM CDT [facility] HEMOGLOBIN 13.8 11.7 - 15.5 g/dL 01/09/2025 4:00 AM CDT [facility] HEMATOCRIT 42.3 35.0 - 45.0 % 01/09/2025 4:00 AM CDT [facility] MCV 91.2 80.0 - 100.0 fL 01/09/2025 4:00 AM CDT [facility] MCH 29.7 27.0 - 33.0 pg 01/09/2025 4:00 AM CDT [facility] MCHC 32.6 32.0 - 36.0 g/dL 01/09/2025 4:00 AM CDT [facility] Comment: For adults, a slight decrease in the calculated MCHC value (in the range of 30 to 32 g/dL) is most likely not clinically significant; however, it should be interpreted with caution in correlation with other red cell parameters and the patient's clinical condition. RDW 11.9 11.0 - 15.0 % 01/09/2025 4:00 AM CDT [facility] PLATELET COUNT 239 140 - 400 Thousand/u L 01/09/2025 4:00 AM CDT [facility] MPV 9.5 7.5 - 12.5 fL 01/09/2025 4:00 AM CDT [facility] Blood BLOOD SPECIMEN / Unknown [facility] / Unknown 01/08/2025 12:57 PM CDT 01/08/2025 12:57 PM CDT us Kelli Dye MD HEMATOLOGY Final Result Performing Organization Address [facility]/ZIP Co de Phone Number [facility] [address] [address], [place] [phone] * CREATININE [23014.2] (01/08/2025 12:57 PM CDT) CREATININE 0.72 0.60 - 1.00 mg/dL 01/09/2025 5:09 AM CDT [facility] EGFR 87 > OR = 60 mL/min/1.73 m2 01/09/2025 5:09 AM CDT [facility] Blood BLOOD SPECIMEN / Unknown [facility] / Unknown 01/08/2025 12:57 PM CDT 01/08/2025 12:57 PM CDT us Kelli Dye MD CHEMISTRY Final Result Performing Organization Address [facility] de Phone Number [facility] [address] [address], [place] [phone] * XR DXA BONE DENSITY 2 SITES AXIAL (02/27/2023 10:03 AM CDT) Anatomical Region Laterality Modality Spine, HIPS, HIPL, HIPR Computed Radiography 02/27/2023 10:0 3 AM CDT Impressions 02/27/2023 1:11 PM CDT Low bone density (OSTEOPENIA). T score meets the WHO criteria for low bone density (osteopenia) at one or more measured sites. The risk of osteoporotic fracture increases approximately two-fold for each standard deviation decrease in T-score. Narrative 02/27/2023 1:11 PM CDT For Patients: As a result of the 21st Century Cures Act, medical imaging exams and procedure reports are released immediately into your electronic medical record. You may view this report before your referring provider. If you have questions, please contact your health care provider. EXAM: XR DXA BONE DENSITY 2 SITES AXIAL LOCATION: [facility] DATE: 02/27/2023 INDICATION: C. low bone density-osteopenia (must be documented by previous scan) - m85.80 Osteopenia Of Multiple Sites DEMOGRAPHICS: Age- 73 years. Gender- Female. COMPARISON: 01/28/2021 TECHNIQUE: Dual-energy x-ray absorptiometry (DXA) performed with routine technique. FINDINGS: DXA RESULTS -Lumbar Spine: L1-L4: BMD: 1.098 g/cm2. T-score: -0.7. Z-score: 0.3. -RIGHT Hip Total: BMD: 0.797 g/cm2. T-score: -1.7. Z-score: -0.6. -RIGHT Hip Femoral neck: BMD: 0.749 g/cm2. T-score: -2.1. Z-score: -0.7. -LEFT Hip Total: BMD: 0.784 g/cm2. T-score: -1.8. Z-score: -0.6. -LEFT Hip Femoral neck: BMD: 0.759 g/cm2. T-score: -2.0. Z-score: -0.6. WHO T-SCORE CRITERIA -Normal: T score at or above -1 SD -Osteopenia: T score between -1 and -2.5 SD -Osteoporosis: T score at or below -2.5 SD The World Health Organization (WHO) criteria is applicable to perimenopausal females, postmenopausal females, and men aged 50 years or older. INTERVAL CHANGE -There has been a 1.3% decrease in lumbar spine BMD. -There has been a 4.4% decrease in bilateral hip BMD. FRACTURE RISK -FRAX Results: The 10 year probability of major osteoporotic fracture is 12.9%, and of hip fracture is 3.3%, based on right femoral neck BMD. RECOMMENDATIONS Consider treatment if major osteoporotic fracture score is greater than or equal to 20%, or if the hip fracture score is greater than or equal to 3%. Procedure Note Sukhdev Olivarez MD - 02/27/2023 For Patients: As a result of the Century Cures Act, medical imagingexams and procedure reports are released immediately into your electronicmedical record. You may view this report before your referring provider.If you have questions, please contact your health care provider. EXAM: XR DXA BONE DENSITY 2 SITES AXIAL LOCATION: [facility] DATE: 02/27/2023 INDICATION: C. low bone density-osteopenia (must be documented by previousscan) - m85.80 Osteopenia Of Multiple Sites DEMOGRAPHICS: Age- 73 years. Gender- Female. COMPARISON: 01/28/2021 TECHNIQUE: Dual-energy x-ray absorptiometry (DXA) performed with routinetechnique. FINDINGS: DXA RESULTS -Lumbar Spine: L1-L4: BMD: 1.098 g/cm2. T-score: -0.7. Z-score: 0.3. -RIGHT Hip Total: BMD: 0.797 g/cm2. T-score: -1.7. Z-score: -0.6. -RIGHT Hip Femoral neck: BMD: 0.749 g/cm2. T-score: -2.1. Z-score: -0.7. -LEFT Hip Total: BMD: 0.784 g/cm2. T-score: -1.8. Z-score: -0.6. -LEFT Hip Femoral neck: BMD: 0.759 g/cm2. T-score: -2.0. Z-score: -0.6. WHO T-SCORE CRITERIA -Normal: T score at or above -1 SD -Osteopenia: T score between -1 and -2.5 SD -Osteoporosis: T score at or below -2.5 SD The World Health Organization (WHO) criteria is applicable toperimenopausal females, postmenopausal females, and men aged 50 years orolder. INTERVAL CHANGE -There has been a 1.3% decrease in lumbar spine BMD. -There has been a 4.4% decrease in bilateral hip BMD. FRACTURE RISK -FRAX Results: The 10 year probability of major osteoporotic fracture is12.9%, and of hip fracture is 3.3%, based on right femoral neck BMD. RECOMMENDATIONS Consider treatment if major osteoporotic fracture score is greater than orequal to 20%, or if the hip fracture score is greater than or equal to3%. IMPRESSION: Low bone density (OSTEOPENIA). T score meets the WHO criteria for low bonedensity (osteopenia) at one or more measured sites. The risk ofosteoporotic fracture increases approximately two-fold for each standarddeviation decrease in T-score. Kelli Dye MD DEXA Final Result * ANTI HCV (02/10/2022 10:36 AM CDT) HEPATITIS C ANTIBODY Non-React chris Non-React chris 02/11/2022 6:42 PM CDT [facility] Comment:Antibodies to HCV no t detected; does not exclude the possibility of exposure to HCV. Blood BLOOD SPECIMEN / Unknown Venipuncture / Unknown 02/10/2022 10:36 AM CDT 02/10/2022 10:38 AM CDT Kelli Dye MD SEND OUTS Final Result [email or web address] 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 Healthcare Directive 11/16/2019 020 * Full Code (Latest Code Status on File) Date Activated Date Inactivated Comments 06/15/2020 12:02 PM 06/16/2020 4:13 PM Question Answer Comments Code Status Discussion: Not Discussed * Full Code Date Activated Date Inactivated Comments 10/27/2013 6:49 AM 10/27/2013 10:06 PM * Full Code Date Activated Date Inactivated Comments 10/18/2009 9:34 AM 10/19/2009 4:29 PM 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
--- OUTSIDE RECORDS SUMMARY | 2025-03-11 22:04 | XMS_ITS | Clinical Summary ---
Author Organization [facility] Address [address] [place] [address] Care Team Providers Care Fixture Builder Name Role Phone Unavailable Primary Care Provider Unavailabl e Allergies No known active allergies Medications warfarin sodium (WARFARIN ORAL) Take 7.5 mg by mouth once daily. 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 Gender Identity Not on file Sexual Orientation Not on file Last Filed Vital Signs Vital Sign Reading Time Taken Comments Blood Pressure 98/68 06/09/2019 11:50 AM STORE GROUP MANAGER Pulse 75 06/09/2019 11:50 AM STORE GROUP MANAGER Temperature 37 C (98.6 F) 06/09/2019 11:50 AM STORE GROUP MANAGER Respiratory Rate - - Oxygen Saturation 99% 06/09/2019 11:50 AM STORE GROUP MANAGER Inhaled Oxygen Concentration - - Weight 84.4 kg (186 lb) 06/09/2019 11:50 AM STORE GROUP MANAGER Height 167.6 cm (5' 6) 06/09/2019 11:50 AM STORE GROUP MANAGER Body Mass Index 30.02 06/09/2019 11:50 AM STORE GROUP MANAGER Plan of Treatment Health Maintenance Due Date Last Done Comments Colonoscopy 1950 Hepatitis C Screening 1950 Lipid Screening 1950 Medicare Wellness Visit 1950 Osteoporosis Screening 1950 Depression Assessment (PHQ-2) 01/20/1951 Yearly Review of HCD 01/20/1998 Pneumococcal 50+ Years (2 of 2 - PCV) 10/05/2017 10/05/2016, 05/18/2011 Adult Tetanus Booster 01/15/2022 01/16/2012 RSV Vaccines (1 - 1-dose 75+ series) 01/20/2023 COVID-19 Vaccine (1 - season) 2025 Influenza Vaccine (#1) 2025 9, 01/25/2018, 02/01/2017, Additional history exists Zoster Vaccine Completed 12/18/2017, 10/05, 06/02/2010 Meningococcal B Vaccine Aged Out No l onger eligible based on patient's age to complete this topic Insurance [facility] MEDICARE ADVANTAGE
--- OUTSIDE RECORDS SUMMARY | 2025-03-11 22:04 | XMS_ITS | Patient Health Record ---
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 Name Role Phone KATIE NORRIS Unavailable [phone] THAPA, HEIDI Unavailable [phone] Allergies No Known Allergies Reason For Referral No Information Medications Medication SIG (Take, Route, Frequency, Duration) Notes Start Date End Date Status Losartan Potassium 25 MG 1 tablet Orally Once a day Unknown Amoxicillin Unknown Osteo Bi-Flex Regular Strength Unknown Metamucil 48.57 % as directed Orally Unknown Apple Cider Vinegar 500 MG as directed Orally Unknown Vitamin B Complex - as directed Orally Unknown Fish Oil 1000 MG 2 capsule Orally Onc e a day Unknown Multi Vitamin - 1 tablet Orally Once a day Unknown Vitamin D3 25 MCG (1000 UT) 1 capsule Orally Once a day Unknown Probiotic 250 MG as directed Orally Unknown Alendronate Sodium 70 MG 1 tablet Orally Unknown Vitamins/Minerals Un known Warfarin Sodium 6 MG 1 tablet Orally Onc e a day Unknown Turmeric 500 MG as directed Orally Unknown Vitamin C 1000 MG 1 tablet Orally Once a day Unknown Problems Problem Type SNOMED Code ICD Code Onset Dates Problem Status W/U Status Risk Notes Problem Osteoarthritis of knee (048327986) Primary osteoarthritis of right knee (M17.11) Active confirmed Problem Osteoarthritis of knee (886708244) Primary osteoarthritis of left knee (M17.12) Active confirmed Problem Post-traumatic gonarthrosis, bilateral (455499031) 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) Active confirmed Problem Femoral neuritis (G57.20) Active confirmed Problem Inflammation of left saphenous nerve (disorder) (158578812637397) Neuritis of left saphenous nerve (G57.82) Active confirmed Problem Neuritis of righ t saphenous nerve (G57.81) Active confirmed Problem Localized, primary osteoarthritis of the ankle and/or foot () Primary osteoarthritis of left foot (M19.072) Active confirmed Problem Localized, primary osteoarthritis of the ankle and/or foot () Osteoarthritis of joint of toe of left foot (M19.072) Active confirmed Problem Bilateral arthritis of knees (7432708086847989 ) Primary osteoarthritis of knees, bilateral (M17.0) Active confirmed Problem Osteoarthritis of knee (disorder) (136966944) Osteoarthritis of unspecified knee (M17.9) Active confirmed Problem Osteoarthritis of knee (disorder) (301403518) Osteoarthritis of unspecified knee (M17.9) Active confirmed Problem Factor 5 Leiden mutation (059836474) Factor V Leiden (D68.51) Active confirmed Problem Patellofemoral syndrome of right knee (0776611562926107 ) 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) Active confirmed Problem Essential hypertension (10496288) Hypertension, unspecified type (I10) Active confirmed Problem Mononeuropathy of lower limb (376199482) Neuritis of right lower extremity (G57.91) Active confirmed Problem Mononeuropathy of lower limb (474796577) Neuritis of left lower extremity (G57.92) Active confirmed Problem Localized, primary osteoarthritis of the ankle and/or foot () Arthritis, 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) Active confirmed Vital Signs Temperature 98.3 degrees Fahrenheit 06/05/2024 Blood pressure diastolic 80 mm Hg 07/23/2024 Height 66 in 07/23/2024 Blood pressure systolic 126 mm Hg 07/23/2024 Encounters Encounter Location Date Provider Diagnosis Caren Garces [address] [place] [address] [place] [id number] 03/26/2024 KAITE NORRIS Left knee pain M25.5 62 ; Primary osteoarthritis of left knee M17.12 ; Pes anserinus bursitis of left knee M70.52 and Femoral neuritis G57.20 Caren D[address]on[address] [place] [address] [id number] 04/10/2024 KATIE NORRIS Left knee pain M25.5 62 ; Primary osteoarthritis of left knee M17.12 ; Pes anserinus bursitis of left knee M70.52 and Femoral neuritis G57.20 Caren Dickson3 [facility] [place] [address] [place] [id number] 04/17/2024 KATIE NORRIS Left knee pain M25.5 62 ; Primary osteoarthritis of left knee M17.12 ; Pes anserinus bursitis of left knee M70.52 and Femoral neuritis G57.20 [address] [facility] [place] [address] [place] [place] [phone] 06/05/2024 KATIE NORRIS Left knee pain M25.5 62 ; Primary osteoarthritis of left knee M17.12 ; Pes anserinus bursitis of left knee M70.52 ; Femoral neuritis G57.20 and IT band syndrome, left M76.32 [address]enez [facility] [address] [address] [place] [id number] 07/23/2024 KATIE NORRIS Left knee pain M25.5 62 ; Primary osteoarthritis of left knee M17.12 ; Pes anserinus bursitis of left knee M70.52 ; Femoral neuritis G57.20 ; IT band syndrome, left M76.32 ; Neuritis of left saphenous nerve G57.82 ; Neuritis of right saphenous nerve G57.81 and Right knee pain M25.561 Assessments Encounter Date Diagnosis (ICD Code) Assessment Notes Treatment Notes Treatment Clinical Notes Section Notes 03/26/2024 Left knee pain (ICD-10 - M25.562) 04/10/2024 Left knee pain (ICD-10 - M25.562) 04/17/2024 Left knee pain (ICD-10 - M25.562) 06/05/2024 Left knee pain (ICD-10 - M25.562) Treatment options discussed with the patient and all of their questions were answered at this time. Based on review of their response to previous treatments, exam and discussion with the patient, Bilateral femoral/sapheno us nerve injections and left IT band trigger point injections are recommended and performed today 07/23/2024 Left knee pain (ICD-10 - M25.562) 07/23/2024 Pes anserinus bursitis of left knee (ICD-10 - M70.52) 07/23/2024 Primary osteoarthritis of left knee (ICD-10 - M17.12) Treatment options discussed with the patient and all of their questions were answered at this time. Based on review of their response to previous treatments, exam and discussion with the patient, ultrasound nerve injections were recommended and performed today Documentation was performed by Judith Hoskins CMA under direct supervision Betty Norris MD 06/05/2024 Primary osteoarthritis of left knee (ICD-10 - M17.12) 06/05/2024 Pes anserinus bursitis of left knee (ICD-10 - M70.52) 04/17/2024 Primary osteoarthritis of left knee (ICD-10 - M17.12) Here at [facility] we use our CFAN model [...] treatments, exam and discussion with the patient, LAWTON Gelsyn #3 recommended and performed today Documentation was performed by Tyler Starr under direct supervision Betty Norris MD 04/10/2024 Primary osteoarthritis of left knee (ICD-10 - M17.12) Here at [facility] we use our CFAN model [...] treatments, exam and discussion with the patient, LAWTON Gelsyn #2 recommended and performed today Patient is already scheduled to return for number 3 Gelsyn LAWTON injection to the Left knee on 04/17/2024 Documentation was performed by Tyler Starr CMA under direct supervision Betty Norris MD 03/26/2024 Primary osteoarthritis of left knee (ICD-10 - M17.12) Treatment options discussed with patient and all of their questions were answered at this time. Based on review of patient's history of knee pain greater than 6 months, a diagnosis of knee osteoarthritis with x-ray evidence, failure to respond to NSAIDs, and no other joint disease or infection, physical exam and discussion with the patient a series of Gelsyn injections are recommended and started today. - Return for 2nd and 3rd injections in the Gelsyn series at least 1 week apart. 03/26/2024 Pes anserinus bursitis of left knee (ICD-10 - M70.52) 04/10/2024 Pes anserinus bursitis of left knee (ICD-10 - M70.52) 04/17/2024 Pes anserinus bursitis of left knee (ICD-10 - M70.52) 06/05/2024 Femoral neuritis (ICD-10 - G57.20) -Treatment options discussed with patient and all of their questions were answered at this time. Patient has failed to improve sufficiently with conservative treatment including PT/HEP, activity modification, and nonsteroidal anti-inflammato ry medication. Due to patient's symptoms and physical examination of pain, nerve blockades (PIT) will be performed for both diagnostic and therapeutic effects; this will enable us to isolate the specific cause of the patient's pain. Based on patient's response and confirmation of neuralgia caused by the nerve, future treatments may be needed to improve function and quality of life. - Ultrasound-guid ed femoral/sapheno us nerve injections bilaterally performed today 07/23/2024 Femoral neuritis (ICD-10 - G57.20) -Treatment options discussed with patient and all of their questions were answered at this time. Patient has failed to improve sufficiently with conservative treatment including PT/HEP, activity modification, and nonsteroidal anti-inflammato ry medication. Due to patient's symptoms and physical examination of pain, nerve blockades (PIT) will be performed for both diagnostic and therapeutic effects; this will enable us to isolate the specific cause of the patient's pain. Based on patient's response and confirmation of neuralgia caused by the nerve, future treatments may be needed to improve function and quality of life. - Bilateral femoral nerve injections under ultrasound guidance today. - Monitor pain over the next 2 weeks and if pain is not sufficiently improved contact the clinic to return for reevaluation. - We will contact the patient to be seen in September for reevaluation and possible repeat of left knee LAWTON injections. 07/23/2024 IT band syndrome, left (ICD-10 - M76.32) 06/05/2024 IT band syndrome, left (ICD-10 - M76.32) - Due to patient's symptoms and physical examination of pain, trigger point injections will be performed for both diagnostic and therapeutic effects; this will enable us to isolate the specific cause of the patient's pain. Based on patient's response and confirmation of myalgia caused by the muscles, future treatments may be needed to improve function and quality of life. - Left IT band trigger point injections performed today. 04/17/2024 Femoral neuritis (ICD-10 - G57.20) 04/10/2024 Femoral neuritis (ICD-10 - G57.20) 03/26/2024 Femoral neuritis (ICD-10 - G57.20) 07/23/2024 Neuritis of left saphenous nerve (ICD-10 - G57.82) 07/23/2024 Neuritis of right saphenous nerve (ICD-10 - G57.81) 07/23/2024 Right knee pain (ICD-10 - M25.561) Plan Of Treatment Pending Test Test Name Order Date MR Femur WO Unilat 02/09/2018 MR Hamstring WO 02/08/2018 XR Foot 2V 09/15/2019 XR Foot 2V 02/16/2021 XR Foot 2V 03/25/2021 Insurance Providers Payer Name Payer Address Payer Phone Subscriber Number Group Number Insured Name Patient Relationship to Insured Coverage Start Date Coverage End Date [facility] - Medicare Replacement (OON) [address] [address] [place], [place] [id number] Dayana Hein Self - patient is the insured MEDICARE PART B [address] [place], [place] [id number] Dayana Hein Self - patient is the insured MEDICARE PART B [address] [place], [place] [id number] Dayana Hein Self - patient is the insured Medical (General) History Medical History History ICD Code 1/2 mutation Factor V Leiden blood clot in leg Surgical History Surgery Date(Month/Year) gallbladder removal 1985 LapBand 2000 Hysterectomy 1994 left meniscus repair 2016 right meniscus repair 2012 SVT repaired 2014 Right knee replacement 02/2018 Hospitalization History Reason Date(Month/Year) see surgical history
[2025-03-11 22:19] VITALS: BP 134/93; PULSE 76; RESP 18; TEMP 37.1; O2SAT 94; BMI 36.4
--- NOTE | 2025-03-11 23:10 | CRLHL7_ITS ---
For Patients: As a result of the Cures Act, medical imaging exams and procedure reports are released immediately into your electronic medical record. You may view this report before your referring provider. If you have questions, please contact your health care provider. INDICATION: Left lower quadrant abdominal pain TECHNIQUE: CT Abdomen and pelvis with i.v. contrast. Coronal and sagittal reformats were obtained. CONTRAST: 98 mL Isovue 370 COMPARISON: 01/15/2024 FINDINGS: Lower chest: Unremarkable. Liver: Unremarkable. Spleen: Unremarkable. Pancreas: Unremarkable. Gallbladder: Previous cholecystectomy noted with mild, stable extrahepatic biliary ductal dilatation seen. Kidney: There is a cyst in the lower pole the right kidney measuring 1.3 cm. Adrenal: Unremarkable. Bowel: A midline ventral hernia is present containing a segment of small bowel without evidence of obstruction. Mild sigmoid diverticulosis is present. The appendix is normal in appearance and size. Vascular: Unremarkable. Lymph: Unremarkable. Peritoneum: Unremarkable. No pneumoperitoneum is seen. No significant ascites is noted. Pelvis: The patient is status post hysterectomy. Soft tissue: Unremarkable. Bone: Mild levoscoliosis is noted with associated facet arthritis and degenerative disc disease. IMPRESSION: 1. A midline ventral hernia is present containing a segment of small bowel without evidence of obstruction. Dictated by Obie Arguelles MD @ 03/12/2025 12:18:18 AM Please note that all CT scans at this facility use dose modulation, iterative reconstruction, and/or weight-based dosing when appropriate to reduce radiation dose to as low as reasonably achievable. Dictated by: Obie Arguelles MD @ 03/12/2025 00:18:22 (Electronically Signed)
--- NOTE | 2025-03-11 23:15 | ED.GENADULT ---
HPI - General Adult General Chief complaint: Abdominal Pain Stated complaint: abdominal pain, hernia pain Time Seen by Provider: 03/11/25 22:23 Source: patient Mode of arrival: ambulatory Limitations: no limitations History of Present Illness HPI narrative: 75-year-old female presents to the emergency department with pain in the left lower quadrant area. She is quite vague on when this started but it definitely worsened this evening. Feels worse with cough. She has a history of umbilical area hernia, wonders if this is related. She says that she has had some mild discomfort over the last couple of weeks but intermittent, pain worsening tonight. It was not accompanied by any appetite changes, stool changes, bowel changes. She has not tried taking any medications to help with her symptoms. Denies prior history of similar symptoms. He was worried that it could be something dangerous and elected to come to the emergency room at bedtime. History of colonoscopy 2 months ago. Reports that there was probably some diverticulosis when I specifically asked but she does not have a history of diverticulitis. She reports that last year, she had some sort of bowel episode and complication that was related to her prior lap band surgery. Based on the description, it sounds like this was a bowel obstruction. She had some sort of laparoscopic surgery done at [facility], I do not have those results. Reports no complications since other than a hernia which she shows me and though she originally indicated that this was umbilical, it is incisional. She also reports that she has had a cough for the last 13 months and was recently told by an ENT that this is a sinus infection. She is not on antibiotics for it but a series of sinus rinses and reports that this has increased her cough. No nausea and vomiting. No bloody stools. No gynecological changes. No dysuria. No history of kidney stones. Pain is focal, in the left lower quadrant of the abdomen and is worse with cough and movement. She has an intolerance to oxycodone but it does not sound as though it is a true allergy. 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 Reports her only home medicines are Coumadin, losartan, atorvastatin. Has some supplements but no other medications. Has a history of lap band surgery and then the surgery last year which sounds like a partial bowel resection for bowel obstruction. ROS is notable for the GI area symptoms only, otherwise denies times 12 systems. Related Data Home Medications ?Medication ?Instructions ?Recorded ?Confirmed psyllium seed (sugar) oral powder 1 tbsp PO DAILY 04/17/22 04/18/22 (Metamucil (sugar) oral powder) warfarin 7.5 mg tablet 7.5 mg PO DAILY 04/17/22 03/11/25 Cheryl 1 ea PO DAILY 04/18/22 04/18/22 Lactobacillus acidophilus 1 tab PO DAILY 04/18/22 04/18/22 (Acidophilus chewable tablet) cholecalciferol (vitamin D3) 50 50 mcg PO DAILY 04/18/22 04/18/22 mcg (2,000 unit) capsule multivitamin (Daily Multi-Vitamin 1 tab PO DAILY 04/18/22 04/18/22 tablet) omega 1-pvo-wkk-fish oil 1,000 mg 1 cap PO DAILY 04/18/22 04/18/22 (120 mg-180 mg) capsule (Fish Oil) turmeric 400 mg capsule 400 mg PO DAILY 04/18/22 04/18/22 vit 1 tab PO DAILY 04/18/22 04/18/22 R-cfjxucp-[id number] 500 mg-50 mg-25 mg-40 mg tablet (Bioflex) vitamin B complex 1 tab PO DAILY 04/18/22 04/18/22 atorvastatin 10 mg tablet 10 mg PO QPM 03/11/25 03/11/25 losartan 25 mg tablet 25 mg PO DAILY 03/11/25 03/11/25 Previous Rx's ?Medication ?Instructions ?Recorded amoxicillin 500 mg capsule 2,000 mg (4 x 500 mg) PO ONCE #4 04/04/23 caps hydrocodone 5 mg-acetaminophen 325 1 - 2 tab PO TID PRN pain #10 tabs 01/15/24 mg tablet ondansetron 4 mg disintegrating 4 mg PO Q4H PRN nausea and 01/15/24 tablet vomiting #12 tabs prednisone 20 mg tablet 40 mg (2 x 20 mg) PO DAILY 4 days 01/15/24 #8 tabs Allergies Allergy/AdvReac Type Severity Reaction Status Date / Time oxycodone Allergy Mild Verified 03/11/25 22:24 PFSH PFS Medical History Chronic anticoagulation ?Z79.01 - 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 manager (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) use of anticoagulants (ICD-10) Family history of cholecystectomy ?Z83.79 - Family history of other diseases of the digestive system (ICD-10) History of atrial fibrillation ?Z86.79 - Personal history of other diseases of the circulatory system (ICD-10) History of thyrotoxicosis ?Z86.39 - Personal history of other endocrine, nutritional and metabolic disease (ICD-10) History of DVT (deep vein thrombosis) ?Z86.718 - Personal history of other venous thrombosis and embolism (ICD-10) Factor 5 Leiden mutation, heterozygous ?D68.51 - Activated protein C resistance (ICD-10) Ascending aorta dilatation ?I77.810 - Thoracic aortic ectasia (ICD-10) History of paroxysmal supraventricular tachycardia ?Z86.79 - Personal history of other diseases of the circulatory system (ICD-10) Surgical History History of arthroscopy of both knees ?Z98.890 - Other specified postprocedural states (ICD-10) History of arthroplasty of right knee ?Z96.651 - Presence of right artificial knee joint (ICD-10) History of tonsillectomy and adenoidectomy ?Z90.89 - Acquired absence of other organs (ICD-10) History of abdominal hysterectomy ?Z90.710 - Acquired absence of both cervix and uterus (ICD-10) Hx of laparoscopic gastric banding ?Z98.84 - Bariatric surgery status (ICD-10) History of abdominoplasty ?Z98.890 - Other specified postprocedural states (ICD-10) Status post catheter ablation of atrial fibrillation ?Z98.890 - Other specified postprocedural states (ICD-10) Family History Mother Renal cell carcinoma Breast cancer Father Aortic dissection Brother Aortic dissection Social History Narrative: She lives in [place] with her . She has 2 grown daughters and grandchildren. She is a former smoker having smoked to half pack a day for 30 years and quitting about 25 years ago. She drinks alcohol about 2 times a week. Her is healthcare power of litigation attorney. Code status is full. Highest level of school completed/degree received: high school graduate Smoking Status: Former smoker Second hand tobacco smoke exposure: No How often do you have a drink containing alcohol: 2-4 times a month Alcohol type: hard liquor How many standard drinks containing alcohol do you have on a typical day: 1 or 2 How often do you have six or more drinks on one occasion: Never AUDIT-C Alcohol total score: 2 Non-prescribed substance use: denies use Caffeine: Yes (2 cups a day) service: No Exam Const: Vital Signs, click to edit/add: Vital Signs - 24 hr 03/11/25 22:19 Temperature 98.7 F Pulse Rate [Left P ulse Oximeter] 76 Respiratory Rate 18 Blood Pressure [Ri ght Upper Arm] 134/93 H Pulse Oximetry 94 Oxygen Delivery Me thod Room Air Documenting provider has reviewed patient's vital signs: yes Common normals: no apparent distress and alert General appearance: comfortable and well kempt HENMT: Common normals: normocephalic, moist oral mucous membranes and oropharynx normal Head and scalp: normocephalic Mouth: oral and palatal mucosa normal Throat: posterior oropharynx normal Eye: Common normals: conjunctivae normal General eye: normal appearance of both eyes Conjunctiva: conjunctiva(e) normal Neck & C-Spine: Common normals: full ROM and no lymphadenopathy Resp: Common normals: normal respiratory effort, no use of accessory muscles and clear to auscultation bilaterally Effort & inspection: able to speak in complete sentences Auscultation: clear to auscultation bilaterally Cardio: Common normals: regular rate, regular rhythm, S1 normal heart sound, S2 normal heart sound and no murmurs Rate: regular rate Rhythm: regular rhythm Heart sounds: S1 normal and S2 normal GI: Common normals: Normal to inspection, nondistended, normoactive bowel sounds present, soft to palpation, no hepatosplenomegaly and no masses Palpation: soft and no hepatosplenomegaly Other: There is an incisional hernia in the upper abdomen associated with a prior laparoscopic incision. This is easily reducible and nontender. I do not feel any femoral or inguinal area hernias. There is focal tenderness in the left lower quadrant but no rebound tenderness or guarding. No obvious mass. Bowel sounds are normoactive throughout. : Common normals: no CVA tenderness Bladder/kidney exam: no CVA tenderness Back & Pelvis: Common normals: no CVA tenderness Extremity: Common normals: normal to inspection and normal capillary refill Neuro: Common normals: moves all extremities Sensorium/orientation: alert Speech: speech normal Motor exam: strength 5/5 throughout Psych: Appearance: well kempt Attitude: engaged Activity/motor behavior: appropriate eye contact Attention/concentration: attention grossly intact Memory/cognition: memory grossly intact Insight: insight good Judgement: judgment good Skin: Common normals: no rashes or lesions noted General skin exam: no rashes or lesions noted Course Course ED Course: 75-year-old female with left lower quadrant abdominal pain. No initial features that would suggest sepsis. Differential diagnosis most strongly suspicious for internal hernia versus diverticulitis. Cannot exclude musculoskeletal etiology, gas, constipation, pancreatitis, ischemic bowel, bowel obstruction, urinary infection, gynecological issue, ureteral stone, amongst others. Will place peripheral IV, typical intra-abdominal labs, CT abdomen and pelvis. She declines pain medicine for now, will let me know if she changes her mind. Await CT findings. Reevaluation(s) Time of Reevaluation #1: 00:29 Reevaluation #1: Counseled patient on lab and CT findings. Urinalysis does have a little bit of leukocyte esterase but no other features of infection. I do not think this is the root of her symptoms and I do not recommend empiric treatment, will await culture. As far as the CT, there is a little bit of diverticulosis but no signs of any major diverticulitis or obstruction. The ventral hernia seen easily reduced on my exam and I do not think this is contributory today either. All lab work was very reassuring. Counseled patient on the diverticulosis. I do think this is the source of her symptoms. We reviewed that this will typically be mildly uncomfortable for a few days and it is okay to use qayk-poj-sqokqab Tylenol. Alarm symptoms like high fever, bleeding, persistent pain were all reviewed as indications to come back to the ED. She verbalizes understanding and agreement. Vital Signs Vital signs: Initial Vital Signs Temperature 98.7 F 03/11/25 22:19 Temperature Source Temporal Artery Scan 03/11/25 22:19 Pulse Rate 76 03/11/25 22:19 Pulse Rhythm Regular 03/11/25 22:19 Respiratory Rate 18 03/11/25 22:19 Blood Pressure 134/93 H 03/11/25 22:19 Blood Pressure Mean 106 H 03/11/25 22:19 Blood Pressure Position Supine 03/11/25 22:19 Pulse Oximetry 94 03/11/25 22:19 Oxygen Delivery Method Room Air 03/11/25 22:19 Vital Signs Temperature 98.7 F 03/11/25 22:19 Pulse Rate 76 03/11/25 22:19 Respiratory Rate 18 03/11/25 22:19 Blood Pressure 134/93 H 03/11/25 22:19 Pulse Oximetry 94 03/11/25 22:19 Oxygen Delivery Method Room Air 03/11/25 22:19 Temperature 98.7 F 03/11/25 22:19 Pulse Rate 76 03/11/25 22:19 Respiratory Rate 18 03/11/25 22:19 Blood Pressure 134/93 H 03/11/25 22:19 Pulse Oximetry 94 03/11/25 22:19 Oxygen Delivery Method Room Air 03/11/25 22:19 Medical Decision Making Lab Data Lab results reviewed: Yes I reviewed the patient's lab results Lab results narrative: No leukocytosis, normal electrolytes. INR therapeutic. No significant elevation of inflammatory markers or procalcitonin. Does have 2+ leukocyte esterase but no other features of infection. Do not recommend empiric treatment for this. Labs: Lab Results 03/11/25 03/11/25 03/11/25 Range/Units 23:10 23:30 23:38 WBC 7.50 (4.50-11.00) K/uL RBC 4.38 (4.00-5.20) m/uL Hgb 13.0 (12.0-16.0) gm/dL Hct 38.8 (33.0-51.0) % MCV 89 (80-100) fL MCH 30 (26-34) pg MCHC 34 (32-36) gm/dL RDW Coeff of Goran 12.2 (11.5-15.5) % Plt Count 204 (140-440) K/uL Neut % (Auto) 62.7 (42.0-72.0) % Lymph % (Auto) 23.3 (20-44) % Brazos % (Auto) 10.9 (0.0-11.0) % Eos % (Auto) 2.1 (0.0-7.0) % Baso % (Auto) 0.1 (0.0-3.0) % Neut # (Auto) 4.69 (1.7-7.0) K/uL Lymph # (Auto) 1.75 (0.90-2.90) K/uL Brazos # (Auto) 0.80 (0.00-0.90) K/UL Eos # (Auto) 0.16 (0.00-0.50) K/uL Baso # (Auto) 0.01 (0.00-0.30) K/uL Abs Immat Gran (auto) 0.07 (0.00-0.30) K/uL Imm/Tot Granulo (auto) 0.9 % INR 2.28 H (0.91-1.10) Sodium 134 L (135-149) mmol/L Potassium 3.7 (3.6-5.1) mmol/L Chloride 101 (96-114) mmol/L Carbon Dioxide 29 (20-32) mmol/L Anion Gap 4 L (7-15) mEq/L BUN 15 (7-30) mg/dL Creatinine 0.6 (0.5-1.5) mg/dL Estimated Creat Clear 40.68 Estimated GFR 92 ml/min Glucose 105 (60-115) mg/dL Lactate 0.5 (0.5-1.9) mmol/L Calcium 9.1 (8.4-10.6) mg/dL Total Bilirubin 0.6 (0.1-1.5) mg/dL AST 22 (12-35) U/L ALT 15 (4-35) U/L Alkaline Phosphatase 66 (40-150) U/L C-Reactive Protein < 0.5 L (0.5-1.0) mg/dL Total Protein 6.8 (6.0-8.3) g/dL Albumin 3.8 (3.3-5.0) g/dL Lipase 62 (23-300) U/L Procalcitonin 0.04 (<0.50) ng/mL Urine Color Yellow (Yellow) Urine Appearance Clear (Clear) Urine pH 6.0 (5.0-8.5) Ur Specific Cary <= 1.005 (1.000-1.030) Urine Protein Negative (Negative) Urine Glucose (UA) Negative (Negative) Urine Ketones Negative (Negative) Urine Blood Negative (Negative) Urine Nitrite Negative (Negative) Urine Bilirubin Negative (Negative) Urine Urobilinogen 0.2 (0.2-1.0) Ur Leukocyte Esterase 2+ A (Negative) Urine RBC 0-2 (0-2) Urine WBC 2-5 (0-5) Ur Squamous Epith Cells Few (None-Few) Amorphous Sediment Few A (None) Urine Bacteria Moderate A (None) POC Creatinine 0.8 (0.6-1.3) mg/dl Imaging Data CT scan - abdomen: Attestation: I have reviewed the pertinent imaging results. My impression: No small bowel obstruction, no signs of abscess. No stranding around the sigmoid area that would be suspicious for diverticulitis. Radiologist's impression: FINDINGS: Lower chest: Unremarkable. Liver: Unremarkable. Spleen: Unremarkable. Pancreas: Unremarkable. Gallbladder: Previous cholecystectomy noted with mild, stable extrahepatic biliary ductal dilatation seen. Kidney: There is a cyst in the lower pole the right kidney measuring 1.3 cm. Adrenal: Unremarkable. Bowel: A midline ventral hernia is present containing a segment of small bowel without evidence of obstruction. Mild sigmoid diverticulosis is present. The appendix is normal in appearance and size. Vascular: Unremarkable. Lymph: Unremarkable. Peritoneum: Unremarkable. No pneumoperitoneum is seen. No significant ascites is noted. Pelvis: The patient is status post hysterectomy. Soft tissue: Unremarkable. Bone: Mild levoscoliosis is noted with associated facet arthritis and degenerative disc disease. IMPRESSION: 1. A midline ventral hernia is present containing a segment of small bowel without evidence of obstruction. Dictated by Obie Arguelles MD @ 03/12/2025 12:18:18 AM Please note that all CT scans at this facility use dose modulation, iterative reconstruction, and/or weight-based dosing when appropriate to reduce radiation dose to as low as reasonably achievable. Dictated by: Obie Arguelles MD @ 03/12/2025 00:18:22 Discharge Plan Discharge Clinical Impression: Diverticulosis large intestine w/o perforation or abscess w/o bleeding Patient Disposition: Home, Self-Care Condition: Stable Instructions: Diverticulosis (DC) Additional Instructions: As we discussed, things look good on your lab work and CT. You do have diverticulosis and I think this is the source of your mild discomfort today. There are no signs of major infection, abscess or bleeding. I do not think we need any treatment at this time. If you start to run a fever, have a severe persistent increase in your pain or have other signs of complications, I would recommend re-evaluation. For most people, this mild discomfort will last for a few days. It is okay to use drin-vjv-qhunpfj Tylenol to help with symptoms. Continue to eat and drink her normal diet and continue taking your warfarin as prescribed as well as her other medications. Keep all pending appointments. Return to the ED if you have worsening as described above. Activity Level: No Restrictions Discharge Diet: Regular Prescriptions: No Action warfarin 7.5 mg tablet 7.5 mg PO DAILY Patient Comments: TAKE BY MOUTH 7.5 MG (7.5 MG X 1) DAILY IN THE EVENING OR DIRECTED Metamucil (sugar) Powder 1 tbsp PO DAILY prednisone 20 mg tablet 40 mg PO DAILY 4 Days Qty: 8 1RF hydrocodone-acetaminophen 5-325 mg tablet 1 - 2 tab PO TID PRN (Reason: pain) Qty: 10 0RF ondansetron 4 mg tablet,disintegrating 4 mg PO Q4H PRN (Reason: nausea and vomiting) Qty: 12 1RF atorvastatin 10 mg tablet 10 mg PO QPM losartan 25 mg tablet 25 mg PO DAILY multivitamin [Daily Multi-Vitamin] Tablet 1 tab PO DAILY omega 1-hop-lhb-fish oil [Fish Oil] 1,000 mg (120 mg-180 mg) capsule 1 cap PO DAILY vitamin B complex Tablet 1 tab PO DAILY turmeric 400 mg capsule 400 mg PO DAILY cholecalciferol (vitamin D3) 50 mcg (2,000 unit) capsule 50 mcg PO DAILY Acidophilus Tablet,Chewable 1 tab PO DAILY Bioflex 135-23-78-40 mg tablet 1 tab PO DAILY Cheryl 1 ea PO DAILY Patient Comments: Apple Cider Vinegar Chew amoxicillin 500 mg capsule 2,000 mg PO ONCE Qty: 4 3RF Rx Instructions: Take 4 capsules 1 hour prior to dental procedure Follow Up/Referrals: Kelli Dye MD [Primary Care Provider, Family Practice] Stand Alone Forms: [employer] Info Instructions
[2025-03-11 23:34] LABS: Creatinine, Point-of-Care* 0.8 mg/dl (0.6-1.3)
--- OUTSIDE RECORDS SUMMARY | 2025-03-11 23:37 | XMS_ITS | Patient Health Record ---
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) Active confirmed Problem Femoral neuritis (G57.20) Active confirmed Problem Inflammation of left saphenous nerve (disorder) (516438289630291) Neuritis of left saphenous nerve (G57.82) Active confirmed Problem Neuritis of righ t saphenous nerve (G57.81) Active confirmed Problem Localized, primary osteoarthritis of the ankle and/or foot () Primary osteoarthritis of left foot (M19.072) Active confirmed Problem Localized, primary osteoarthritis of the ankle and/or foot () Osteoarthritis of joint of toe of left foot (M19.072) Active confirmed Problem Bilateral arthritis of knees (2711756109592968 ) Primary osteoarthritis of knees, bilateral (M17.0) Active confirmed Problem Osteoarthritis of knee (disorder) (975892115) Osteoarthritis of unspecified knee (M17.9) Active confirmed Problem Osteoarthritis of knee (disorder) (684223948) Osteoarthritis of unspecified knee (M17.9) Active confirmed Problem Factor 5 Leiden mutation (590649788) Factor V Leiden (D68.51) Active confirmed Problem Patellofemoral syndrome of right knee (0113158543209708 ) 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) Active confirmed Problem Essential hypertension (87382200) Hypertension, unspecified type (I10) Active confirmed Problem Mononeuropathy of lower limb (114457788) Neuritis of right lower extremity (G57.91) Active confirmed Problem Mononeuropathy of lower limb (348874836) Neuritis of left lower extremity (G57.92) Active [...] [address] [place] [id number] 03/26/2024 KATIE NORRIS Left knee pain M25.5 62 ; Primary osteoarthritis of left knee M17.12 ; Pes anserinus bursitis of left knee M70.52 and Femoral neuritis G57.20 Caren Dickson3 [address] [address] [place] [phone] 04/10/2024 KATIE NORRIS Left knee pain M25.5 62 ; Primary osteoarthritis of left knee M17.12 ; Pes anserinus bursitis of left knee M70.52 and Femoral neuritis G57.20 Caren Dickson3 [facility] [address] [place] [phone] 04/17/2024 KATIE NORRIS Left knee pain M25.5 62 ; Primary osteoarthritis of left knee M17.12 ; Pes anserinus bursitis of left knee M70.52 and Femoral neuritis G57.20 [address] [facility] [address] [place] [phone] 06/05/2024 KATIE NORRIS Left knee pain M25.5 62 ; Primary osteoarthritis of left knee M17.12 ; Pes anserinus bursitis of left knee M70.52 ; Femoral neuritis G57.20 and IT band syndrome, left M76.32 Rashel Mili Jimenez [facility] [address] [phone] 07/23/2024 KATIE NORRIS Left knee pain M25.5 [...] left knee (ICD-10 - M17.12) Here at [facility] we use our CFAN model to [...] left knee (ICD-10 - M17.12) Here at [facility] we use our CFAN model to [...] knee on 04/17/2024 Documentation was performed by Tyelr Starr CMA under direct supervision Betty Norris [...] Insured Coverage Start Date Coverage End Date [facility] - Medicare Replacement (OON) [address] [address] [place], [place] [id number] Dayana Hein Self - patient is the insured MEDICARE PART B [address] [place], [place] [id number] Dayana Hein Self - patient is the insured MEDICARE PART B [address] [place], [place] [id number] Dayana Hein Self - patient is the [...]
[2025-03-11 23:40] LABS: Lactate Sepsis w/Reflex* 0.5 mmol/L (0.5-1.9)
[2025-03-11 23:45] LABS: Appearance Urine Clear (Clear)
[2025-03-11 23:45] LABS: Hematocrit* 38.8 % (33.0-51.0); Hemoglobin* 13.0 gm/dL (12.0-16.0); Immature Granulocytes Abs Auto 0.07 K/uL (0.00-0.30); Immature Granulocytes Pct Auto 0.9 %; Lymphocytes Absolute Auto 1.75 K/uL (0.90-2.90); Mean Corpuscular HGB Conc 34 gm/dL (32-36); Mean Corpuscular Hemoglobin 30 pg (26-34); Mean Corpuscular Volume 89 fL (80-100); RDW Coefficient of Variation % 12.2 % (11.5-15.5); Red Blood Count* 4.38 m/uL (4.00-5.20); White Blood Count* 7.50 K/uL (4.50-11.00)
[2025-03-11 23:47] LABS: Slide Review Reflex No
[2025-03-11 23:57] LABS: Albumin* 3.8 g/dL (3.3-5.0); Chloride* 101 mmol/L (96-114); Potassium* 3.7 mmol/L (3.6-5.1); Sodium* 134 mmol/L (135-149)
[2025-03-11 23:59] LABS: Blood Urea Nitrogen* 15 mg/dL (7-30); Creatinine* 0.6 mg/dL (0.5-1.5); Est. Creatinine Clearance* 40.68; Estimated Glomerular Filt Rate 92 ml/min
[2025-03-12] LABS: Alanine Aminotransferase* 15 U/L (4-35); Alkaline Phosphatase* 66 U/L (40-150); Anion Gap 4 mEq/L (7-15); Aspartate Amino Transferase* 22 U/L (12-35); Bilirubin Total* 0.6 mg/dL (0.1-1.5); Carbon Dioxide* 29 mmol/L (20-32); Total Protein* 6.8 g/dL (6.0-8.3)
[2025-03-12 00:01] LABS: Calcium* 9.1 mg/dL (8.4-10.6); Glucose* 105 mg/dL (60-115)
[2025-03-12 00:07] LABS: INR 2.28 (0.91-1.10); Prothrombin Time 26.3 Seconds
[2025-03-12 00:17] LABS: Procalcitonin* 0.04 ng/mL (<0.50)
[2025-03-12 00:40] VITALS: BP 127/107; PULSE 70; RESP 16; O2SAT 96
== END 2025-03-12 00:45 | disposition home or self-care (01) ==
PROVIDERS: Emergency Provider Family Medicine; PCP Family Medicine
DX: K57.30 Diverticulosis of large intestine without perforation or abscess without bleeding (principal); Z79.01 Long term (current) use of anticoagulants
CPT/HCPCS: 36415; 74177; 80053; 81001; 82565; 83605; 83690; 84145; 85025; 85610; 86140; 87086; 99283; 99284; 99285; Q9967